=== PATIENT | male | born 1990 | race Caucasian/White ===

== ENCOUNTER 2019-04-03 10:53 | Inpatient (IN) | payer MEDICAID ==
--- NOTE | 2019-04-03 10:56 | ERPHSYRPT ---
- History of Present Illness Time Seen by Provider: 04/03/19 10:55 Source: patient, family, EMS Exam Limitations: no limitations Physician History: Old male with a past medical history significant for chronic alcoholism in addition to alcohol withdrawal seizures presents with a chief complaint of a seizure. He reportedly was at his probation officers office this morning with his girlfriend and had 1 witnessed tonic-clonic seizure. The seizure reportedly lasted 5 minutes before it resolved on its own. The patient reportedly drinks on average 1/2 gallon of vodka a week and reportedly has been trying to "cut down". He reported his been feeling tremulous for the past 48 hours and his girlfriend noted that his tremors seem to be worse this morning prior to going to his chief program officer's appointment. Had prior hospitalizations for alcohol withdrawal seizures in the past and currently has not been diagnosed with generalized seizures such as epilepsy and does not take anything for AED therapy. Did report falling/tripping over his dog 2 days ago in which he impacted the left side of his face and periorbital region resulting and a bruise around the left eye. No loss of consciousness reported with the fall. The patient reportedly does not take anticoagulants or any antiplatelets. He currently is not suicidal nor is he homicidal or expressing suicidal ideations. He has had outpatient rehab in the past for alcohol abuse and currently is not involved with rehab at this time nor is he on any Antabuse or taking any benzodiazepines to prevent withdrawals. He was transported by EMS to the emergency department and in route he had an Accu-Chek of 143. Associated Symptoms: malaise, seizure, No nausea, No vomiting, No loss of appetite Allergies/Adverse Reactions: No Known Drug Allergies Allergy (Verified 04/03/19 10:55) Home Medications: No Home Meds [No Home Meds] 0 09/07/12 [History] Hx Influenza Vaccination/Date Given: No Hx Pneumococcal Vaccination/Date Given: No - Review of Systems Constitutional: No Fever, No Chills Eyes: No Symptoms Ears, Nose, & Throat: No Symptoms Respiratory: Cough Cardiac: No Chest Pain, No Edema, No Orthopnea Abdominal/Gastrointestinal: No Abdominal Pain, No Nausea, No Vomiting Genitourinary Symptoms: No Symptoms Musculoskeletal: No Symptoms Skin: Other (Left periorbital ecchymosis) Neurological: Seizure, Tremors, No Headache Psychological: Alcohol Abuse, Anxiety, Depression, No Drug Abuse, No Suicidal Ideations, No Homicidal Ideations, No Hallucinations Endocrine: No Symptoms All Other Systems: Reviewed and Negative - Past Medical History Pertinent Past Medical History: No Psycho-Social History: Anxiety, Depression Other Medical History: Left shoulder tendon tear without surgery - Past Surgical History Past Surgical History: No - Social History Smoking Status: Current every day smoker How long have you smoked: 8 years Exposure to second hand smoke: Yes Alcohol Use: Chronic (since age 14l none for 3 days) Drug Use: none Patient Lives Alone: No Significant Family History: no pertinent family hx - Nursing Vital Signs Nursing Vital Signs: Initial Vital Signs Pulse Rate 104 H 04/03/19 10:57 Respiratory Rate 18 04/03/19 10:57 Blood Pressure 120/85 04/03/19 10:57 O2 Sat by Pulse Oximetry 95 04/03/19 10:57 Pain Scale Pain Intensity 0 - Physical Exam General Appearance: alert Eye Exam: PERRL/EOMI, other (Left subconjunctival hematoma), No scleral icterus Ears, Nose, Throat Exam: pharynx normal, dry mucous membranes, other (No evidence of tongue or obvious oral trauma), No TM abnormal (L), No pharyngeal erythema, No tonsillar exudate Neck Exam: non-tender, supple, No JVD Respiratory Exam: normal breath sounds, chest tenderness, lungs clear, airway intact, diminished breath sounds, accessory muscle use, No respiratory distress , No crackles/rales, No rhonchi, No wheezing, No pleural rub Cardiovascular Exam: tachycardia, capillary refill <2 sec, No edema, No pulse deficit Gastrointestinal/Abdomen Exam: soft, normal bowel sounds, No tenderness, No distention, No mass Male Genitalia Exam: normal genitalia Rectal Exam: deferred Back Exam: normal inspection Extremity Exam: normal inspection Neurologic Exam: alert, oriented x 3, cooperative Skin Exam: warm, dry, abrasion, other (Abrasion and ecchymosis noted to the left anterior forearm. Ecchymosis noted to the left periorbital region. ), No rash, No petechiae, No jaundice, No cyanosis - Course Nursing assessment & vital signs reviewed: Yes EKG Interpreted by Me: RATE, Sinus Rhythm, Left [place] Deviation, NORMAL INTERVALS , NORMAL QRS, Other (Vent rate of 85 bpm, no evidence of acute myocardial ischemia or injury) - CT Exams Head CT Interpretation: Negative Maxillofacial Bones CT Interpretation: Negative Cervical Spine CT Interpretation: Negative Ordered Tests: Active Orders 24 hr Category Date Time Status Up With Assistance ROUTINE Activity 04/03/19 13:57 Active Accucheck STAT Care 04/03/19 10:57 Completed Admit as Inpatient ROUTINE Care 04/03/19 13:30 Completed Babysitter STAT Care 04/03/19 10:58 Completed Code Status Order ROUTINE Care 04/03/19 13:57 Active EKG-ER Only STAT Care 04/03/19 10:57 Completed IV Care Q6H Care 04/03/19 13:57 Active IV Insertion STAT Care 04/03/19 10:57 Completed Pulse Oximetry (ED) STAT Care 04/03/19 10:57 Completed Seizure Precautions -SCCHED STAT Care 04/03/19 10:57 Completed Eric Hose, Apply ROUTINE Care 04/03/19 13:57 Active Telemetry q6h Care 04/03/19 13:57 Active Vital Signs Q2H Care 04/03/19 13:57 Active Weight,Daily 0600 Care 04/03/19 13:57 Active Manager Of Operations/Discharge Plan ROUTINE Cons 04/03/19 13:57 Active Regular Diet Diet 04/03/19 Dinner Active CERVICAL SPINE WO CONTRAST [CT] Stat Exams 04/03/19 11:48 Completed CHEST 2 VIEWS (PA AND LAT) Stat Exams 04/03/19 10:59 Completed FACIAL BONES WO CONTRAST [CT] Stat Exams 04/03/19 11:15 Completed HEAD WITHOUT CONTRAST [CT] Stat Exams 04/03/19 10:59 Completed BMP Stat Lab 04/03/19 11:05 Completed CBC W DIFF AM.LAB Lab 04/04/19 04:00 Ordered CBC W DIFF Stat Lab 04/03/19 11:05 Completed CMP AM.LAB Lab 04/04/19 04:00 Ordered CULTURE,URINE Stat Lab 04/03/19 Received ETHYL ALCOHOL Stat Lab 04/03/19 11:05 Completed Hepatic Function Panel Stat Lab 04/03/19 11:05 Completed Lactic Acid AM.LAB Lab 04/04/19 04:00 Ordered Lactic Acid Stat Lab 04/03/19 11:18 Completed Lactic Acid Stat Lab 04/03/19 13:25 Completed MAGNESIUM Stat Lab 04/03/19 11:05 Completed PHOSPHOROUS Stat Lab 04/03/19 11:05 Completed PROTIME WITH INR Stat Lab 04/03/19 11:05 Completed UA W/RFX UR CULTURE Stat Lab 04/03/19 Completed Pulse Oximetry CONTINUOUS RT 04/03/19 13:57 Completed Transfer Order Routine Transfer 04/03/19 Completed Medication Summary Generic Name Dose Route Start Last Admin Trade Name Collin PRN Reason Stop Dose Admin Sodium Chloride 1,000 mls @ 100 mls/hr 04/03/19 13:57 04/03/19 15:02 Sodium Chloride 0.9% 1000 Ml IV 05/03/19 13:56 100 mls/hr .Q10H LESLY Administration Ketorolac Tromethamine 30 mg 04/03/19 14:16 04/03/19 14:31 Toradol 30 Mg Injection IV 04/08/19 14:15 30 mg Q6H PRN PRN Administration PAIN Lorazepam 1 mg 04/03/19 14:15 04/03/19 14:30 Ativan 2 Mg/1 Ml Vial IV 05/03/19 14:14 1 mg PRN PRN Administration CIWA SCORE Multivitamins Therapeutic 1 tab 04/04/19 10:00 Theragran Multivitamin PO 05/04/19 09:59 QAM LESLY Ondansetron HCl 4 mg 04/03/19 13:57 Zofran 4 Mg/2 Ml Vial IV 05/03/19 13:56 Q6H PRN PRN NAUSEA/VOMITING Phenobarbital 130 mg 04/03/19 13:57 Phenobarbital 65 Mg/Ml Inj. IV 05/03/19 13:56 PRN PRN CIWA SCORE Discontinued Medications Generic Name Dose Route Start Last Admin Trade Name Collin PRN Reason Stop Dose Admin Folic Acid 1 mg 04/03/19 11:19 04/03/19 11:49 Folate 1 Mg PO 04/03/19 11:20 1 mg STAT ONE Administration Phenobarbital 780 mg/ Sodium 112 mls @ 224 mls/hr 04/03/19 11:45 04/03/19 12: 09 Chloride IV 04/03/19 12:14 224 mls/hr NOW ONE Administration Sodium Chloride 1,000 mls @ 999 mls/hr 04/03/19 12:03 04/03/19 13:18 Sodium Chloride 0.9% 1000 Ml IV 04/03/19 13:03 Infused .Q1H1M STA Infusion Sodium Chloride Confirm 04/03/19 12:11 Sodium Chloride 0.9% 1000 Ml Administered 04/03/19 12:12 Dose 1,000 mls @ ud .ROUTE .[facility] Magnesium Sulfate/Dextrose 100 mls @ 100 mls/hr 04/03/19 15:00 04/03/19 17:22 Magnesium 1 Gm / 100 Ml D5w IV 04/03/19 16:59 100 mls/hr Q1H LESLY Administration Phenobarbital 320 mg 04/03/19 11:24 04/03/19 12:08 Phenobarbital 65 Mg/Ml Inj. IV 04/03/19 11:25 320 mg STAT ONE Administration Thiamine HCl 100 mg 04/03/19 11:18 04/03/19 11:49 Thiamine 200 Mg/2 Ml IV 04/03/19 11:19 100 mg STAT ONE Administration Thiamine HCl Confirm 04/03/19 11:28 Thiamine 200 Mg/2 Ml Administered 04/03/19 11:29 Dose 200 mg .ROUTE .[facility] Lab/Rad Data: Laboratory Result Diagrams 04/03/19 11:05 04/03/19 11:05 Laboratory Results 04/03/19 04/03/19 04/03/19 Range/Units 13:25 11:18 11:05 WBC (4.0-10.5) K/mm3 RBC (4.1-5.6) M/mm3 Hgb (12.5-18.0) gm/dl Hct (42-50) % MCV (78-100) fl MCH (26-32) pg MCHC (32-36) g/dl RDW (11.5-14.0) % Plt Count (150-450) K/mm3 MPV (7.5-11.0) fl Gran % (36.0-66.0) % Eos # (Auto) (0-0.5) Absolute Lymphs (auto) (1.0-4.6) Absolute Monos (auto) (0.0-1.3) Lymphocytes % (24.0-44.0) % Monocytes % (0.0-12.0) % Eosinophils % (0.00-5.0) % Basophils % (0.0-0.4) % Absolute Granulocytes (1.4-6.9) Basophils # (0-0.4) PT (8.83-12.87) SECONDS INR (0.8-3.0) Sodium (137-145) mmol/L Potassium (3.5-5.1) mmol/L Chloride (98-107) mmol/L Carbon Dioxide (22-30) mmol/L Anion Gap (5-15) MEQ/L BUN (9-20) mg/dL Creatinine (0.66-1.25) mg/dL Estimated GFR ML/MIN Glucose (74-106) mg/dL Lactic Acid 1.1 7.1 H (0.4-2.0) Calcium (8.4-10.2) mg/dL Phosphorus (2.5-4.5) mg/dL Magnesium (1.6-2.3) mg/dL Total Bilirubin (0.2-1.3) mg/dL Direct Bilirubin (0.0-0.4) mg/dL AST (17-59) U/L ALT (0-50) U/L Alkaline Phosphatase (38-126) U/L Serum Total Protein (6.3-8.2) g/dL Albumin (3.5-5.0) g/dL Ethyl Alcohol < 10 (0-10) mg/dL Slides for Path Review 04/03/19 04/03/19 04/03/19 Range/Units 11:05 11:05 11:05 WBC (4.0-10.5) K/mm3 RBC (4.1-5.6) M/mm3 Hgb (12.5-18.0) gm/dl Hct (42-50) % MCV (78-100) fl MCH (26-32) pg MCHC (32-36) g/dl RDW (11.5-14.0) % Plt Count (150-450) K/mm3 MPV (7.5-11.0) fl Gran % (36.0-66.0) % Eos # (Auto) (0-0.5) Absolute Lymphs (auto) (1.0-4.6) Absolute Monos (auto) (0.0-1.3) Lymphocytes % (24.0-44.0) % Monocytes % (0.0-12.0) % Eosinophils % (0.00-5.0) % Basophils % (0.0-0.4) % Absolute Granulocytes (1.4-6.9) Basophils # (0-0.4) PT 11.5 (8.83-12.87) SECONDS INR 1.02 (0.8-3.0) Sodium 135 L (137-145) mmol/L Potassium 3.6 (3.5-5.1) mmol/L Chloride 96 L (98-107) mmol/L Carbon Dioxide 17 L (22-30) mmol/L Anion Gap 25.9 H (5-15) MEQ/L BUN 9 (9-20) mg/dL Creatinine 0.79 (0.66-1.25) mg/dL Estimated GFR > 60.0 ML/MIN Glucose 172 H (74-106) mg/dL Lactic Acid (0.4-2.0) Calcium 9.7 (8.4-10.2) mg/dL Phosphorus 3.2 (2.5-4.5) mg/dL Magnesium 1.5 L (1.6-2.3) mg/dL Total Bilirubin 1.00 (0.2-1.3) mg/dL Direct Bilirubin 0.4 (0.0-0.4) mg/dL AST 126 H (17-59) U/L ALT 77 H (0-50) U/L Alkaline Phosphatase 52 (38-126) U/L Serum Total Protein 8.2 (6.3-8.2) g/dL Albumin 5.1 H (3.5-5.0) g/dL Ethyl Alcohol (0-10) mg/dL Slides for Path Review 04/03/19 Range/Units 11:05 WBC 6.9 (4.0-10.5) K/mm3 RBC 4.58 (4.1-5.6) M/mm3 Hgb 15.5 (12.5-18.0) gm/dl Hct 45.5 (42-50) % MCV 99.3 (78-100) fl MCH 33.8 H (26-32) pg MCHC 34.1 (32-36) g/dl RDW 14.3 H (11.5-14.0) % Plt Count 47 L (150-450) K/mm3 MPV 10.1 (7.5-11.0) fl Gran % 84.2 H (36.0-66.0) % Eos # (Auto) 0.05 (0-0.5) Absolute Lymphs (auto) 0.46 L (1.0-4.6) Absolute Monos (auto) 0.57 (0.0-1.3) Lymphocytes % 6.6 L (24.0-44.0) % Monocytes % 8.2 (0.0-12.0) % Eosinophils % 0.7 (0.00-5.0) % Basophils % 0.3 (0.0-0.4) % Absolute Granulocytes 5.82 (1.4-6.9) Basophils # 0.02 (0-0.4) PT (8.83-12.87) SECONDS INR (0.8-3.0) Sodium (137-145) mmol/L Potassium (3.5-5.1) mmol/L Chloride (98-107) mmol/L Carbon Dioxide (22-30) mmol/L Anion Gap (5-15) MEQ/L BUN (9-20) mg/dL Creatinine (0.66-1.25) mg/dL Estimated GFR ML/MIN Glucose (74-106) mg/dL Lactic Acid (0.4-2.0) Calcium (8.4-10.2) mg/dL Phosphorus (2.5-4.5) mg/dL Magnesium (1.6-2.3) mg/dL Total Bilirubin (0.2-1.3) mg/dL Direct Bilirubin (0.0-0.4) mg/dL AST (17-59) U/L ALT (0-50) U/L Alkaline Phosphatase (38-126) U/L Serum Total Protein (6.3-8.2) g/dL Albumin (3.5-5.0) g/dL Ethyl Alcohol (0-10) mg/dL Slides for Path Review YES - Progress Progress: improved Progress Note: 04/03/19 21:24 The patient appears to be suffering from alcohol withdrawal at this time. His seizure was likely secondary to alcohol withdrawal as well. Labs were reviewed and consistent with and have other lactic acid in addition to anion gap metabolic acidosis likely secondary to this. This is likely result of his recent seizure and I do not feel the patient has an infectious source at this time to explain the elevated lactate. CTs and x-ray are reviewed and relatively benign. He did have some mild hyponatremia which I believe is secondary to his chronic alcohol use and likely not the cause of his seizure at this time. His thrombocytopenia in addition to mildly elevated transaminases AST being greater than his ALT is likely reflective of his chronic alcoholism/ use. Ultimately, the patient's tremors and withdrawal symptoms seem to be controlled with IV phenobarbital emergency department and he will be admitted to the ICU to undergo further evaluation and management for alcohol withdrawal and alcohol withdrawal seizures. Patient was agreeable to being admitted. The nursing staff on the ICU stated that they could order and follow the CIWA protocol and the charge nurse called and inquired about this given I was unable to order this or find that order for his admission orders. Discussed with DrRuth: Maribell Will see patient in: hospital (full admit) Counseled pt/family regarding: drug and/or alcohol abuse, lab results, diagnosis , rad results - Departure Departure Disposition: Home, In-patient Admission Clinical Impression: Alcohol withdrawal seizure, Hyponatremia, Hypochloremia, Transaminitis, High anion gap metabolic acidosis, Lactic acid acidosis, Thrombocytopenia, Hypomagnesemia, Subconjunctival hemorrhage, Contusion of face Condition: Stable Critical Care Time: No
[2019-04-03] MEDS ORDERED: THIAMINE 200 MG/2 ML IV ONE (11:18)
[2019-04-03 11:19] LABS: Absolute Neutrophil Ct (ANC) 5.82 (1.4-6.9); BASOPHIL % 0.3 % (0.0-0.4); Basophil (Absolute #) 0.02 (0-0.4); Eosinophil % 0.7 % (0.00-5.0); Eosinophil (Absolute #) 0.05 (0-0.5); Hematocrit 45.5 % (42-50); Hemoglobin 15.5 gm/dl (12.5-18.0); Lymphocyte (Absolute #) 0.46 (1.0-4.6); Lymphocytes % 6.6 % (24.0-44.0); Mean Cell Volume 99.3 fl (78-100); Mean Corpuscular Hemoglobin 33.8 pg (26-32); Mean Corpuscular Hgb Concent. 34.1 g/dl (32-36); Mean Platelet Volume 10.1 fl (7.5-11.0); Monocyte (Absolute #) 0.57 (0.0-1.3); Monocytes % 8.2 % (0.0-12.0); Neutrophil % 84.2 % (36.0-66.0); Platelet Count 47 K/mm3 (150-450); Red Blood Count 4.58 M/mm3 (4.1-5.6); Red Cell Distribution Width 14.3 % (11.5-14.0); White Blood Count 6.9 K/mm3 (4.0-10.5)
[2019-04-03] MEDS ORDERED: FOLATE 1 MG PO ONE (11:19)
[2019-04-03] MEDS ORDERED: Phenobarbital 65 MG/ML INJ. IV ONE ×2 (11:20→11:24)
[2019-04-03 11:25] LABS: INR 1.02 (0.8-3.0); PROTIME 11.5 SECONDS (8.83-12.87)
[2019-04-03] MEDS ORDERED: THIAMINE 200 MG/2 ML ONE (11:28)
[2019-04-03 11:31] LABS: MAGNESIUM 1.5 mg/dL (1.6-2.3); PHOSPHOROUS 3.2 mg/dL (2.5-4.5)
[2019-04-03 11:32] LABS: ALBUMIN 5.1 g/dL (3.5-5.0); ALKALINE PHOSPHATASE 52 U/L (38-126); ANION GAP 25.9 MEQ/L (5-15); BLOOD UREA NITROGEN 9 mg/dL (9-20); CHLORIDE 96 mmol/L (98-107); Calcium 9.7 mg/dL (8.4-10.2); Carbon Dioxide 17 mmol/L (22-30); Creatinine 1 0.79 mg/dL (0.66-1.25); Direct Bilirubin 0.4 mg/dL (0.0-0.4); Glucose 172 mg/dL (74-106); Potassium 3.6 mmol/L (3.5-5.1); SGOT/AST 126 U/L (17-59); SODIUM 135 mmol/L (137-145); Total Protein 8.2 g/dL (6.3-8.2)
[2019-04-03 11:39] LABS: SGPT/ALT 77 U/L (0-50)
[2019-04-03 11:40] LABS: Slide Review 1 YES
[2019-04-03] MEDS ORDERED: SODIUM CHLORIDE 0.9% IV ONE (11:45)
[2019-04-03] MEDS ORDERED: PHENOBARBITAL IV ONE (11:45)
[2019-04-03] MEDS ORDERED: Sodium Chloride 0.9% 1000 ML 1,000 ML IV STA (12:03)
[2019-04-03] MEDS ORDERED: Sodium Chloride 0.9% 1000 ML 1,000 ML ONE (12:11)
--- NOTE | 2019-04-03 12:38 | XRAY ---
Indication: Possible aspiration. Seizure. Comparison: September 07, 2012. PA/lateral chest again demonstrates normal heart and lungs. Bony thorax intact with minimal dextroscoliosis. No new/acute findings.
--- NOTE | 2019-04-03 12:44 | XRAY ---
Indication: Head injury. Status post seizure. Multiple contiguous axial images obtained through the head without contrast. Comparison: None Normal appearing brain parenchyma, ventricles, and bony calvarium. Impression: Normal CT head without contrast exam.
--- NOTE | 2019-04-03 12:46 | XRAY ---
Indication: Neck pain. Status post seizure. Multiple contiguous axial images obtained through the cervical spine. Sagittal and coronal reformatted images obtained. Comparison: None Axial images negative for acute fracture, suspicious bony lesions, or spinal canal stenosis. Sagittal and coronal reformatted images demonstrates normal cervical alignment. Vertebral body heights/disc spaces maintained. No acute compression fracture, subluxation, or jumped facet. Normal appearing craniocervical junction. Visualized noncontrasted soft tissues unremarkable. Impression: Normal CT cervical spine.
--- NOTE | 2019-04-03 12:48 | XRAY ---
Indication: Left infraorbital bruising. Status post seizure. Multiple contiguous axial images obtained through the facial bones. Sagittal and coronal reformatted images obtained. Comparison: None A few bilateral dental amalgams produces beam artifact. No acute fracture, suspicious bony lesions, or radiopaque foreign body. Orbits including roof, banks, and floors intact. Floor of the maxillary sinus and right sphenoid sinus demonstrates minimal mucosal thickening bilaterally. Remaining paranasal sinuses and nasal passages are clear. Mild nasoseptal deviation to the left. Visualized noncontrasted soft tissues unremarkable. Impression: Minimal paranasal sinus disease. Remaining CT facial bones is negative.
[2019-04-03] MEDS ORDERED: Phenobarbital 65 MG/ML INJ. IV PRN (13:57)
[2019-04-03] MEDS ORDERED: Zofran 4 MG/2 ML VIAL IV PRN (13:57)
[2019-04-03] MEDS: Ativan 2 MG/1 ML VIAL IV PRN ×2 (14:30→21:54)
[2019-04-03] MEDS: TORAdol 30 mg Injection IV PRN ×2 (14:31→21:54)
[2019-04-03 14:37] LABS: Appearance SLIGHTLY CLOUDY (CLEAR); Bacteria RARE /HPF (NEGATIVE); Bilirubin SMALL (NEGATIVE); Blood MODERATE Ery/ul (0-5); Glucose 50 mg/dL (NEGATIVE); Ketones MODERATE (NEGATIVE); Leukocyte Esterase NEGATIVE (NEGATIVE); Mucus SLIGHT /HPF (NEGATIVE); Nitrite NEGATIVE (NEGATIVE); Protein,Urine Dip >=500 (Negative); RBC 26-50 /HPF (0-2); Specific Gravity 1.026 (1.005-1.025); Urobilinogen 4 mg/dL (0-1); WBC 0-2 /HPF (0-5)
[2019-04-03] MEDS ORDERED: Magnesium Sulfate 1 GM/2 ML VIAL IV ONE (15:00)
[2019-04-03] MEDS: Sodium Chloride 0.9% 1000 ML 1,000 ML IV SCH (15:02)
[2019-04-03] MEDS: Magnesium 1 Gm / 100 Ml D5W*** 100 ML IV SCH ×2 (16:49→17:22)
[2019-04-04] MEDS: Ativan 2 MG/1 ML VIAL IV PRN ×4 (01:15→16:14)
[2019-04-04] MEDS: Sodium Chloride 0.9% 1000 ML 1,000 ML IV SCH ×2 (01:52→14:14)
[2019-04-04] MEDS ORDERED: IMODIUM 2 MG PO PRN ×2 (04:02→06:42)
[2019-04-04 05:15] LABS: Absolute Neutrophil Ct (ANC) 2.88 (1.4-6.9); BASOPHIL % 0.3 % (0.0-0.4); Basophil (Absolute #) 0.01 (0-0.4); Eosinophil (Absolute #) 0.08 (0-0.5); Hematocrit 42.1 % (42-50); Hemoglobin 14.1 gm/dl (12.5-18.0); Lymphocyte (Absolute #) 0.64 (1.0-4.6); Mean Cell Volume 99.3 fl (78-100); Mean Corpuscular Hemoglobin 33.3 pg (26-32); Mean Corpuscular Hgb Concent. 33.5 g/dl (32-36); Mean Platelet Volume 10.6 fl (7.5-11.0); Monocyte (Absolute #) 0.39 (0.0-1.3); Monocytes % 9.8 % (0.0-12.0); Neutrophil % 71.9 % (36.0-66.0); Platelet Count 41 K/mm3 (150-450); Red Blood Count 4.24 M/mm3 (4.1-5.6); Red Cell Distribution Width 14.2 % (11.5-14.0)
[2019-04-04 05:23] LABS: ALBUMIN 4.3 g/dL (3.5-5.0); ALKALINE PHOSPHATASE 52 U/L (38-126); ANION GAP 11.3 MEQ/L (5-15); BLOOD UREA NITROGEN 5 mg/dL (9-20); CHLORIDE 100 mmol/L (98-107); Calcium 8.8 mg/dL (8.4-10.2); Carbon Dioxide 26 mmol/L (22-30); Glucose 115 mg/dL (74-106); Potassium 3.2 mmol/L (3.5-5.1); SGOT/AST 101 U/L (17-59); SGPT/ALT 73 U/L (0-50); SODIUM 135 mmol/L (137-145); Total Protein 7.1 g/dL (6.3-8.2)
[2019-04-04] MEDS: TORAdol 30 mg Injection IV PRN (09:37)
[2019-04-04] MEDS: THERAGRAN MULTIVITAMIN PO SCH (09:39)
--- NOTE | 2019-04-04 12:34 | PCM.HP ---
History of Present Illness - Chief Complaint Chief Complaint: seizure and alcohol withdrawl History of Present Illness: is a 28 year old male with a past medical history significant for chronic alcoholism in addition to alcohol withdrawal seizures presents with a chief complaint of a seizure. He reportedly was at his probation officers office this morning with his girlfriend and had 1 witnessed tonic-clonic seizure. The seizure reportedly lasted 5 minutes before it resolved on its own. The patient reportedly drinks on average 1/2 gallon of vodka a week and reportedly has been trying to "cut down". He reported his been feeling tremulous for the past 48 hours and his girlfriend noted that his tremors seem to be worse this morning prior to going to his safety security officer's appointment. Had prior hospitalizations for alcohol withdrawal seizures in the past and currently has not been diagnosed with generalized seizures such as epilepsy and does not take anything for AED therapy. Did report falling/tripping over his dog 2 days ago in which he impacted the left side of his face and periorbital region resulting and a bruise around the left eye. No loss of consciousness reported with the fall. The patient reportedly does not take anticoagulants or any antiplatelets. He currently is not suicidal nor is he homicidal or expressing suicidal ideations. He has had outpatient rehab in the past for alcohol abuse and currently is not involved with rehab at this time nor is he on any Antabuse or taking any benzodiazepines to prevent withdrawals. He was transported by EMS to the emergency department and in route he had an Accu-Chek of 143. - Review of Systems Constitutional: No Fever, No Chills Eyes: No Symptoms Ears, Nose, & Throat: No Symptoms Respiratory: No Cough, No Short Of Breath Cardiac: No Chest Pain, No Edema, No Syncope Abdominal/Gastrointestinal: No Abdominal Pain, No Nausea, No Vomiting, No Diarrhea Genitourinary Symptoms: No Dysuria Musculoskeletal: No Back Pain, No Neck Pain Skin: No Rash Neurological: No Dizziness, No Focal Weakness, No Sensory Changes Psychological: No Symptoms Endocrine: No Symptoms Hematologic/Lymphatic: No Symptoms Immunological/Allergic: No Symptoms Medications & Allergies Home Medications: Home Medication List No Reportable Medications [No Reported Medications] 04/03/19 [History Confirmed 04/03/19] Allergies/Adverse Reactions: Allergies Allergy/AdvReac Type Severity Reaction Status Date / Time No Known Drug Allergies Allergy Verified 04/03/19 10:55 - Past Medical History Past Medical History: No Neurological History: Seizures ENT History: No Pertinent History Cardiac History: No Pertinent History Respiratory History: No Pertinent History Endocrine Medical History: No Pertinent History Musculoskelatal History: No Pertinent History GI Medical History: No Pertinent History History: No Pertinent History Pyscho-Social History: Anxiety, Depression Male Reproductive Disorders: No Pertinent History Comment: Left shoulder tendon tear without surgery - Past Surgical History Past Surgical History: No Neuro Surgical History: No Pertinent History Cardiac History: No Pertinent History Respiratory Surgery: No Pertinent History GI Surgical History: No Pertinent History Genitourinary Surgical Hx: No Pertinent History Musculskeletal Surgical Hx: No Pertinent History Male Surgical History: No Pertinent History - Social History Smoking Status: Current every day smoker How long have you smoked: 8 years Exposure to second hand smoke: Yes Alcohol: Heavy Drug Use: none Significant Family History: no pertinent family hx - Physical Exam Vital Signs: Vital Signs - 24 hr Temp Pulse Resp BP Pulse Ox 04/04/19 08:00 98.1 F 81 20 119/104 96 04/04/19 04:00 97.8 F 79 13 126/101 96 04/03/19 23:57 66 04/03/19 23:49 98.0 F 68 12 111/84 98 04/03/19 22:00 98.5 F 75 17 137/85 96 04/03/19 20:00 98.2 F 70 15 111/69 98 04/03/19 17:23 97.9 F 68 18 108/80 97 04/03/19 15:54 97.6 F 80 20 121/82 96 04/03/19 14:36 98.4 F 82 22 129/87 97 04/03/19 14:05 98.4 F 82 22 129/87 97 04/03/19 13:57 97 04/03/19 13:19 78 18 118/92 96 04/03/19 12:39 88 18 124/83 95 General Appearance: no apparent distress, alert Neurologic Exam: alert, oriented x 3, cooperative, normal mood/affect, nml cerebellar function, nml station & gait, sensation nml, No motor deficits Eye Exam: PERRL/EOMI, eyes nml inspection Ears, Nose, Throat Exam: normal ENT inspection, TMs normal, pharynx normal, moist mucous membranes Neck Exam: normal inspection, non-tender, supple, full range of motion Respiratory Exam: normal breath sounds, lungs clear, No respiratory distress Cardiovascular Exam: regular rate/rhythm, normal heart sounds, normal peripheral pulses Gastrointestinal/Abdomen Exam: soft, normal bowel sounds, No tenderness, No mass Back Exam: normal inspection, normal range of motion, No CVA tenderness, No vertebral tenderness Extremity Exam: normal inspection, normal range of motion, pelvis stable Skin Exam: normal color, warm, dry, No rash Lymphatic Exam: No adenopathy Results - Labs Lab/Micro Results: Lab Results-Last 24 Hours 04/03/19 04/03/19 04/04/19 Range/Units 13:25 Unknown 04:00 WBC (4.0-10.5) K/mm3 RBC (4.1-5.6) M/mm3 Hgb (12.5-18.0) gm/dl Hct (42-50) % MCV (78-100) fl MCH (26-32) pg MCHC (32-36) g/dl RDW (11.5-14.0) % Plt Count (150-450) K/mm3 MPV (7.5-11.0) fl Gran % (36.0-66.0) % Eos # (Auto) (0-0.5) Absolute Lymphs (auto) (1.0-4.6) Absolute Monos (auto) (0.0-1.3) Lymphocytes % (24.0-44.0) % Monocytes % (0.0-12.0) % Eosinophils % (0.00-5.0) % Basophils % (0.0-0.4) % Absolute Granulocytes (1.4-6.9) Basophils # (0-0.4) Sodium (137-145) mmol/L Potassium (3.5-5.1) mmol/L Chloride (98-107) mmol/L Carbon Dioxide (22-30) mmol/L Anion Gap (5-15) MEQ/L BUN (9-20) mg/dL Creatinine (0.66-1.25) mg/dL Estimated GFR ML/MIN Glucose (74-106) mg/dL Lactic Acid 1.1 1.3 (0.4-2.0) Calcium (8.4-10.2) mg/dL Total Bilirubin (0.2-1.3) mg/dL AST (17-59) U/L ALT (0-50) U/L Alkaline Phosphatase (38-126) U/L Serum Total Protein (6.3-8.2) g/dL Albumin (3.5-5.0) g/dL Urine Color LUIS (YELLOW) Urine Appearance SLIGHTLY CLOUDY (CLEAR) Urine pH 6.0 (5-6) Ur Specific [place] 1.026 (1.005-1.025) Urine Protein >=500 (Negative) Urine Ketones MODERATE (NEGATIVE) Urine Blood MODERATE (0-5) Henry/ul Urine Nitrite NEGATIVE (NEGATIVE) Urine Bilirubin SMALL (NEGATIVE) Urine Urobilinogen 4 (0-1) mg/dL Ur Leukocyte Esterase NEGATIVE (NEGATIVE) Urine WBC (Auto) 0-2 (0-5) /HPF Urine RBC (Auto) 26-50 (0-2) /HPF U Hyaline Cast (Auto) 3-5 (0-2) /LPF U Epithel Cells (Auto) NONE (FEW) /HPF Urine Bacteria (Auto) RARE (NEGATIVE) /HPF Urine Mucus (Auto) SLIGHT (NEGATIVE) /HPF Urine Culture Reflexed YES (NO) Urine Glucose 50 (NEGATIVE) mg/dL 04/04/19 04/04/19 Range/Units 04:31 04:31 WBC 4.0 (4.0-10.5) K/mm3 RBC 4.24 (4.1-5.6) M/mm3 Hgb 14.1 (12.5-18.0) gm/dl Hct 42.1 (42-50) % MCV 99.3 (78-100) fl MCH 33.3 H (26-32) pg MCHC 33.5 (32-36) g/dl RDW 14.2 H (11.5-14.0) % Plt Count 41 L (150-450) K/mm3 MPV 10.6 (7.5-11.0) fl Gran % 71.9 H (36.0-66.0) % Eos # (Auto) 0.08 (0-0.5) Absolute Lymphs (auto) 0.64 L (1.0-4.6) Absolute Monos (auto) 0.39 (0.0-1.3) Lymphocytes % 16.0 L (24.0-44.0) % Monocytes % 9.8 (0.0-12.0) % Eosinophils % 2.0 (0.00-5.0) % Basophils % 0.3 (0.0-0.4) % Absolute Granulocytes 2.88 (1.4-6.9) Basophils # 0.01 (0-0.4) Sodium 135 L (137-145) mmol/L Potassium 3.2 L (3.5-5.1) mmol/L Chloride 100 (98-107) mmol/L Carbon Dioxide 26 (22-30) mmol/L Anion Gap 11.3 (5-15) MEQ/L BUN 5 L (9-20) mg/dL Creatinine 0.60 L (0.66-1.25) mg/dL Estimated GFR > 60.0 ML/MIN Glucose 115 H (74-106) mg/dL Lactic Acid (0.4-2.0) Calcium 8.8 (8.4-10.2) mg/dL Total Bilirubin 1.00 (0.2-1.3) mg/dL AST 101 H (17-59) U/L ALT 73 H (0-50) U/L Alkaline Phosphatase 52 (38-126) U/L Serum Total Protein 7.1 (6.3-8.2) g/dL Albumin 4.3 (3.5-5.0) g/dL Urine Color (YELLOW) Urine Appearance (CLEAR) Urine pH (5-6) Ur Specific [place] (1.005-1.025) Urine Protein (Negative) Urine Ketones (NEGATIVE) Urine Blood (0-5) Henry/ul Urine Nitrite (NEGATIVE) Urine Bilirubin (NEGATIVE) Urine Urobilinogen (0-1) mg/dL Ur Leukocyte Esterase (NEGATIVE) Urine WBC (Auto) (0-5) /HPF Urine RBC (Auto) (0-2) /HPF U Hyaline Cast (Auto) (0-2) /LPF U Epithel Cells (Auto) (FEW) /HPF Urine Bacteria (Auto) (NEGATIVE) /HPF Urine Mucus (Auto) (NEGATIVE) /HPF Urine Culture Reflexed (NO) Urine Glucose (NEGATIVE) mg/dL Microbiology 04/03/19 Unknown Urine Culture - Preliminary Urine, Void NO GROWTH TO DATE - Radiology Impressions Radiology Exams & Impressions: Radiology Procedures Category Date Time Status CERVICAL SPINE WO CONTRAST [CT] Stat Exams 04/03/19 11:48 Completed CHEST 2 VIEWS (PA AND LAT) Stat Exams 04/03/19 10:59 Completed FACIAL BONES WO CONTRAST [CT] Stat Exams 04/03/19 11:15 Completed HEAD WITHOUT CONTRAST [CT] Stat Exams 04/03/19 10:59 Completed Assessment/Plan (1) Alcohol abuse Current Visit: Yes Status: Acute Code(s): F10.10 - ALCOHOL ABUSE, UNCOMPLICATED (2) Alcohol withdrawal seizure Current Visit: Yes Status: Acute Qualifiers: Complication of substance-induced condition: with perceptual disturbance Qualified Code(s): F10.232 - Alcohol dependence with withdrawal with perceptual disturbance Assessment & Plan: Last Vital Signs Temp 98.1 F 04/04/19 08:00 Pulse 81 04/04/19 08:00 Resp 20 04/04/19 08:00 BP 119/104 04/04/19 08:00 Pulse Ox 96 04/04/19 08:00 Allergies No Known Drug Allergies Allergy (Verified 04/03/19 10:55) Active Medications Sodium Chloride (Sodium Chloride 0.9% 1000 Ml) 1,000 mls @ 100 mls/hr IV .Q10H LESLY Stop: 05/03/19 13:56 Last Admin: 04/04/19 01:52 Dose: 100 mls/hr Ketorolac Tromethamine (Toradol 30 Mg Injection) 30 mg IV Q6H PRN PRN PRN Reason: PAIN Stop: 04/08/19 14:15 Last Admin: 04/04/19 09:37 Dose: 30 mg Loperamide HCl (Imodium 2 Mg) 2 mg PO Q4H PRN PRN PRN Reason: DIARRHEA Stop: 05/04/19 06:41 Lorazepam (Ativan 2 Mg/1 Ml Vial) 1 mg IV PRN PRN PRN Reason: CIWA SCORE Stop: 05/03/19 14:14 Last Admin: 04/04/19 09:38 Dose: 1 mg Multivitamins Therapeutic (Theragran Multivitamin) 1 tab PO QAM LESLY Stop: 05/04/19 09:59 Last Admin: 04/04/19 09:39 Dose: 1 tab Ondansetron HCl (Zofran 4 Mg/2 Ml Vial) 4 mg IV Q6H PRN PRN PRN Reason: NAUSEA/VOMITING Stop: 05/03/19 13:56 Last Admin: 04/04/19 01:22 Dose: 4 mg Phenobarbital (Phenobarbital 65 Mg/Ml Inj.) 130 mg IV PRN PRN PRN Reason: CIWA SCORE Stop: 05/03/19 13:56 Intake & Output 04/04/19 04/05/19 11:59 11:59 Intake Total 2525 Balance 2525 Weight 80.8 kg Orders 04/03/19 14:15 Lorazepam 2 mg/1 ml [Ativan 2 MG/1 ML VIAL] 1 mg IV PRN PRN 04/03/19 14:16 KETOROLAC trometh 30 mg Inj [TORAdol 30 mg Injection] 30 mg IV Q6H PRN PRN 04/04/19 06:42 Loperamide HCl 2 mg [Imodium 2 mg] 2 mg PO Q4H PRN PRN 04/04/19 09:22 Consult Tele-Health [Tele-Health Consult] ROUTINE Lab Tests 04/03/19 04/03/19 04/04/19 13:25 Unknown 04:00 WBC RBC Hgb Hct MCV MCH MCHC RDW Plt Count MPV Gran % Eos # (Auto) Absolute Lymphs (auto) Absolute Monos (auto) Lymphocytes % Monocytes % Eosinophils % Basophils % Absolute Granulocytes Basophils # Sodium Potassium Chloride Carbon Dioxide Anion Gap BUN Creatinine Estimated GFR Glucose Lactic Acid 1.1 1.3 Calcium Total Bilirubin AST ALT Alkaline Phosphatase Serum Total Protein Albumin Urine Color LUIS Urine Appearance SLIGHTLY CLOUDY Urine pH 6.0 Ur Specific [place] 1.026 Urine Protein >=500 Urine Ketones MODERATE Urine Blood MODERATE Urine Nitrite NEGATIVE Urine Bilirubin SMALL Urine Urobilinogen 4 Ur Leukocyte Esterase NEGATIVE Urine WBC (Auto) 0-2 Urine RBC (Auto) 26-50 U Hyaline Cast (Auto) 3-5 U Epithel Cells (Auto) NONE Urine Bacteria (Auto) RARE Urine Mucus (Auto) SLIGHT Urine Culture Reflexed YES Urine Glucose 50 04/04/19 04/04/19 04:31 04:31 WBC 4.0 RBC 4.24 Hgb 14.1 Hct 42.1 MCV 99.3 MCH 33.3 H MCHC 33.5 RDW 14.2 H Plt Count 41 L MPV 10.6 Gran % 71.9 H Eos # (Auto) 0.08 Absolute Lymphs (auto) 0.64 L Absolute Monos (auto) 0.39 Lymphocytes % 16.0 L Monocytes % 9.8 Eosinophils % 2.0 Basophils % 0.3 Absolute Granulocytes 2.88 Basophils # 0.01 Sodium 135 L Potassium 3.2 L Chloride 100 Carbon Dioxide 26 Anion Gap 11.3 BUN 5 L Creatinine 0.60 L Estimated GFR > 60.0 Glucose 115 H Lactic Acid Calcium 8.8 Total Bilirubin 1.00 AST 101 H ALT 73 H Alkaline Phosphatase 52 Serum Total Protein 7.1 Albumin 4.3 Urine Color Urine Appearance Urine pH Ur Specific [place] Urine Protein Urine Ketones Urine Blood Urine Nitrite Urine Bilirubin Urine Urobilinogen Ur Leukocyte Esterase Urine WBC (Auto) Urine RBC (Auto) U Hyaline Cast (Auto) U Epithel Cells (Auto) Urine Bacteria (Auto) Urine Mucus (Auto) Urine Culture Reflexed Urine Glucose Microbiology 04/03/19 Unknown Urine, Void Urine Culture - Preliminary NO GROWTH TO DATE Code(s): F10.239 - ALCOHOL DEPENDENCE WITH WITHDRAWAL, UNSPECIFIED; R56.9 - UNSPECIFIED CONVULSIONS
[2019-04-05] MEDS: Sodium Chloride 0.9% 1000 ML 1,000 ML IV SCH (07:23)
[2019-04-05 08:08] VITALS: BP 151/98; PULSE 84; O2SAT 95
[2019-04-05] MEDS: THERAGRAN MULTIVITAMIN PO SCH (08:40)
--- NOTE | 2019-04-05 12:03 | PCM.DS ---
Discharge Summary Date of Admission: 04/03/19 13:54 Admitting Physician: MAVERICK SPANN Primary Care Provider: NO FAMILY DOCTOR Allergies Allergies No Known Drug Allergies Allergy (Verified 04/03/19 10:55) Hospital Summary - Hospital Course Hospital Course: Chief Complaint Diagnosis seizure and alcohol withdrawl Allergies Allergy/AdvReac Type Severity Reaction Status Date / Time No Known Drug Allergies Allergy Verified 04/03/19 10:55 Vital Signs (Last 24 hours) Temp Pulse Resp BP Pulse Ox 04/05/19 11:54 84 04/05/19 08:00 98.3 F 84 20 151/98 95 04/05/19 07:30 87 04/05/19 04:00 98.7 F 78 19 146/103 98 04/05/19 00:01 64 04/05/19 00:00 64 16 133/95 96 04/04/19 20:00 98.1 F 63 16 135/96 99 04/04/19 16:00 98.4 F 71 16 146/106 97 04/04/19 12:00 98.2 F 73 18 138/94 96 Home Medications Medication Instructions Recorded Confirmed Last Taken Type No Reportable Medications [No 04/03/19 04/03/19 Unknown History Reported Medications] Current Medications Generic Name Dose Route Start Last Admin Trade Name Freq PRN Reason Stop Dose Admin Sodium Chloride 1,000 mls @ 100 mls/hr 04/03/19 13:57 04/05/19 07:23 Sodium Chloride 0.9% 1000 Ml IV 05/03/19 13:56 Not Given .Q10H LESLY Ketorolac Tromethamine 30 mg 04/03/19 14:16 04/04/19 09:37 Toradol 30 Mg Injection IV 04/08/19 14:15 30 mg Q6H PRN PRN Administration PAIN Loperamide HCl 2 mg 04/04/19 06:42 04/04/19 22:16 Imodium 2 Mg PO 05/04/19 06:41 2 mg Q4H PRN PRN Administration DIARRHEA Lorazepam 1 mg 04/03/19 14:15 04/04/19 16:14 Ativan 2 Mg/1 Ml Vial IV 05/03/19 14:14 1 mg PRN PRN Administration CIWA SCORE Multivitamins Therapeutic 1 tab 04/04/19 10:00 04/05/19 08:40 Theragran Multivitamin PO 05/04/19 09:59 1 tab QAM LESLY Administration Ondansetron HCl 4 mg 04/03/19 13:57 04/04/19 01:22 Zofran 4 Mg/2 Ml Vial IV 05/03/19 13:56 4 mg Q6H PRN PRN Administration NAUSEA/VOMITING Phenobarbital 130 mg 04/03/19 13:57 Phenobarbital 65 Mg/Ml Inj. IV 05/03/19 13:56 PRN PRN CIWA SCORE Discontinued Medications Generic Name Dose Route Start Last Admin Trade Name Freq PRN Reason Stop Dose Admin Folic Acid 1 mg 04/03/19 11:19 04/03/19 11:49 Folate 1 Mg PO 04/03/19 11:20 1 mg STAT ONE Administration Phenobarbital 780 mg/ Sodium 112 mls @ 224 mls/hr 04/03/19 11:45 04/03/19 12: 09 Chloride IV 04/03/19 12:14 224 mls/hr NOW ONE Administration Sodium Chloride 1,000 mls @ 999 mls/hr 04/03/19 12:03 04/03/19 13:18 Sodium Chloride 0.9% 1000 Ml IV 04/03/19 13:03 Infused .Q1H1M STA Infusion Sodium Chloride Confirm 04/03/19 12:11 Sodium Chloride 0.9% 1000 Ml Administered 04/03/19 12:12 Dose 1,000 mls @ ud .ROUTE .STK-MED ONE Magnesium Sulfate/Dextrose 100 mls @ 100 mls/hr 04/03/19 15:00 04/03/19 17:22 Magnesium 1 Gm / 100 Ml D5w IV 04/03/19 16:59 100 mls/hr Q1H LESLY Administration Loperamide HCl 2 mg 04/04/19 04:02 04/04/19 04:08 Imodium 2 Mg PO 05/04/19 04:01 2 mg Q4H PRN Administration DIARRHEA Phenobarbital 320 mg 04/03/19 11:24 04/03/19 12:08 Phenobarbital 65 Mg/Ml Inj. IV 04/03/19 11:25 320 mg STAT ONE Administration Thiamine HCl 100 mg 04/03/19 11:18 04/03/19 11:49 Thiamine 200 Mg/2 Ml IV 04/03/19 11:19 100 mg STAT ONE Administration Thiamine HCl Confirm 04/03/19 11:28 Thiamine 200 Mg/2 Ml Administered 04/03/19 11:29 Dose 200 mg .ROUTE .STK-MED ONE Intake & Output (Last 24 hours) 04/02/19 04/03/19 04/04/19 04/05/19 11:59 11:59 11:59 11:59 Intake Total 2525 1680 Balance 2525 1680 Weight 83.915 kg 80.8 kg 78.1 kg Microbiology Results (Last 24 hours) 04/03/19 Unknown Urine, Void Urine Culture - Final NO GROWTH Patient Care Notes (Last 24 hours) 04/05/19 10:07 Case Management Note by Tahmina Chatman S/W PATIENT AND FAMILY- THEY CONTINUE TO DENY ANY NEEDS REGARDING DC AT THIS TIME. PATIENT HAS AN APPOINTMENT WITH THE [facility] FOR OUTPT TREATMENT. THEY REPORT THEY WILL MAKE SURE PATIENT TAKES ANY MEDICATIONS PRESCRIBED AND WILL MAKE SURE HE MAKES HIS FOLLOW UP APPOINTMENTS Initialized on 04/05/19 10:07 - END OF NOTE 04/05/19 06:13 Nursing Note by Harriet Amaral Patient and girlfriend came out into hallway from room 128, patient was fully clothed with jacket and shoes on. Patient stated, "I'm just going to go for a walk and get some air." This nurse educated patient that he was still ICU and on seizure precautions. Patient's girlfriend became very confrontational stating , "He walked outside yesterday! He is just walking!" This nurse recommended patient at least stay on hospital unit, which he refused. electronics supervisor notified and recommended patient at least stay in the hospital at this time, to which patient and girlfriend took off walking down the hallway. Patient's belongings noted still in room at this time. Initialized on 04/05/19 06:13 - END OF NOTE 04/04/19 15:09 Nursing Note by Elen Maurice [facility] called after discussing case with . pt is free to discharge home when medically cleared Initialized on 04/04/19 15:09 - END OF NOTE 04/04/19 14:30 Nursing Note by Anais Bailey [facility] did a face to face with patient at 2:12-2:30 p.m. Initialized on 04/04/19 14:30 - END OF NOTE 04/04/19 14:14 Nursing Note by Elen Maurice [facility] staff in pt's room for face to face evaluation. Initialized on 04/04/19 14:14 - END OF NOTE 04/04/19 13:09 Nursing Note by Elen Maurice [facility] called and reported someone from the [facility] will come over later today to do a face to face evaluation. Initialized on 04/04/19 13:09 - END OF NOTE - Vitals & Intake/Output Vital Signs: Vital Signs Temperature 98.3 F 04/05/19 08:00 Pulse Rate 84 04/05/19 11:54 Respiratory Rate 20 04/05/19 08:00 Blood Pressure 151/98 04/05/19 08:00 O2 Sat by Pulse Oximetry 95 04/05/19 08:00 Intake & Output: Intake & Output 04/02/19 04/03/19 04/04/19 04/05/19 11:59 11:59 11:59 11:59 Intake Total 2525 1680 Balance 2525 1680 Weight 83.915 kg 80.8 kg 78.1 kg - Lab Result Diagrams: 04/04/19 04:31 04/04/19 04:31 Micro Results-Entire Visit: Microbiology 04/03/19 Unknown Urine Culture - Final Urine, Void NO GROWTH - Radiology Exams Ordered Rad Exams-Entire Visit: Radiology Procedures Category Date Time Status CERVICAL SPINE WO CONTRAST [CT] Stat Exams 04/03/19 11:48 Completed CHEST 2 VIEWS (PA AND LAT) Stat Exams 04/03/19 10:59 Completed FACIAL BONES WO CONTRAST [CT] Stat Exams 04/03/19 11:15 Completed HEAD WITHOUT CONTRAST [CT] Stat Exams 04/03/19 10:59 Completed Discharge Exam General Appearance: no apparent distress, alert Neurologic Exam: alert, oriented x 3, cooperative, normal mood/affect, nml cerebellar function, sensation nml, No motor deficits Eye Exam: PERRL, EOMI, eyes nml inspection Ears, Nose, Throat Exam: normal ENT inspection, pharynx normal, moist mucous membranes Neck Exam: normal inspection, non-tender, supple, full range of motion Respiratory Exam: normal breath sounds, lungs clear, No respiratory distress Cardiovascular Exam: regular rate/rhythm, normal heart sounds Gastrointestinal/Abdomen Exam: soft, No tenderness, No mass Male Genitalia Exam: deferred Rectal Exam: deferred Back Exam: normal inspection, normal range of motion, No CVA tenderness, No vertebral tenderness Extremity Exam: normal inspection, normal range of motion Skin Exam: normal color, warm, dry Final Diagnosis/Problem List - Final Discharge Diagnosis/Problem (1) Alcohol abuse Current Visit: Yes Status: Acute Assessment & Plan: will start naltrexone and antabuse Code(s): F10.10 - ALCOHOL ABUSE, UNCOMPLICATED (2) Alcohol withdrawal seizure Current Visit: Yes Status: Acute Assessment & Plan: start him on Keppra Code(s): F10.239 - ALCOHOL DEPENDENCE WITH WITHDRAWAL, UNSPECIFIED; R56.9 - UNSPECIFIED CONVULSIONS - Discharge Discharge Date: 04/05/19 Disposition: Home, Self-Care Condition: Stable Prescriptions: New Disulfiram [Antabuse] 250 mg PO BID #60 tablet Levetiracetam [Keppra 500 mg ] 500 mg PO BID #60 tablet Nystatin/TCN/Hc/Diphenhydram [Tsering's Magic Mouthwash] 10 ml PO QID #200 bottle Naltrexone HCl 50 mg PO BID #60 tablet Instructions: Alcohol Abuse and Alcoholism (DC) Additional Instructions: FOLLOW UP WITH [facility] AT [facility] FOR [facility]IENT [facility]ERAPY @ 10:00 A.M. Follow up with: MAVERICK SPANN MD [ACTIVE STAFF] - 04/10/19 10:45 am (at [facility] )
== END 2019-04-05 12:09 | disposition home or self-care (01) | DRG 897 ==
LOC: ED 10:53 → ICU 13:54
PROVIDERS: ADMIT General Practice; ATTEND General Practice
DX: F10.239 Alcohol dependence with withdrawal, unspecified (principal); F10.232 Alcohol dependence with withdrawal with perceptual disturbance; W01.0XXA Fall on same level from slipping, tripping and stumbling without subsequent striking against object, initial encounter; Y93.9 Activity, unspecified; Y92.9 Unspecified place or not applicable; S00.12XA Contusion of left eyelid and periocular area, initial encounter; F41.9 Anxiety disorder, unspecified; F32.9 Major depressive disorder, single episode, unspecified; R56.9 Unspecified convulsions
CPT/HCPCS: 36415; 70450; 70486; 71046; 72125; 80048; 80053; 80076; 80307; 81001; 82962; 83605; 83735; 84100; 85025; 85610; 87086; 90791; 93005; 93041; 94760; 96360; 96374; 96375; 99285; J1885; J2060; J2405; J2560; J3475; Q3014; A9270-GY; G0480

== ENCOUNTER 2020-06-11 15:55 | Inpatient (IN) | payer OTHER ==
[2020-06-11] MEDS ORDERED: PROTONIX 40 MG IV IV ONE ×2 (16:14→16:24)
[2020-06-11] MEDS ORDERED: Zofran 4 MG/2 ML VIAL IV ONE (16:14)
[2020-06-11] MEDS ORDERED: Ativan 2 MG/1 ML VIAL IV ONE ×2 (16:15→17:33)
[2020-06-11] MEDS ORDERED: Zofran 4 MG/2 ML VIAL ONE (16:24)
[2020-06-11] MEDS ORDERED: Ativan 2 MG/1 ML VIAL ONE ×2 (16:24→17:34)
[2020-06-11] MEDS ORDERED: Vitamins For Infusion 10 ML INJECTION*** 10 ML, THIAMINE 200 MG/2 ML*** 100 MG, FOLNATE... IV SCH ×4 (16:30)
[2020-06-11] MEDS ORDERED: Sodium Chloride 0.9% W/ 20 mEq KCl/LITER 1,000 ML IV SCH (16:30)
[2020-06-11 16:58] LABS: INR 1.15 (0.8-3.0)
--- NOTE | 2020-06-11 16:59 | XRAY ---
Indication: Abdomen pain. Vomiting blood. Alcohol withdrawal. Multiple contiguous axial images obtained through the abdomen and pelvis using 80 cc Isovue 370 contrast. Comparison: June 25, 2019. Lung bases are clear. Heart not enlarged. New small hiatal hernia. Noncontrasted stomach and bowel loops appear nonobstructed. Normal appendix. New prominent/edematous pancreatic head with diffuse peripancreatic stranding favoring acute pancreatitis. New small fluid along the left colic gutter and pelvis presumed reactive. No walled off fluid collection or free air. New diffuse fatty appearing liver. Remaining gallbladder, spleen, adrenal glands, kidneys, ureters, bladder, and aorta appear unremarkable. No pathologic retroperitoneal lymphadenopathy. Osseous structures intact. Impression: 1. New CT findings favoring acute pancreatitis with small free fluid. No phlegmon or free air. 2. New diffuse fatty liver and small hiatal hernia.
--- NOTE | 2020-06-11 16:59 | XRAY ---
Indication: Vomiting blood. Comparison: April 03, 2019. Portable apical lordotic chest again demonstrates normal heart, lungs, and bony thorax.
[2020-06-11 17:03] LABS: ALBUMIN 4.9 g/dL (3.5-5.0); ALKALINE PHOSPHATASE 66 U/L (38-126); AMYLASE 684 U/L (30-110); ANION GAP 28.5 MEQ/L (5-15); BLOOD UREA NITROGEN 13 mg/dL (9-20); CHLORIDE 86 mmol/L (98-107); Calcium 9.9 mg/dL (8.4-10.2); Carbon Dioxide 23 mmol/L (22-30); Creatinine 1 0.95 mg/dL (0.66-1.25); EST GLOMERULAR FILTRATION RATE > 60.0 ML/MIN; Glucose 103 mg/dL (74-106); SGOT/AST 141 U/L (17-59); SGPT/ALT 84 U/L (0-50); SODIUM 134 mmol/L (137-145); Total Protein 7.7 g/dL (6.3-8.2)
[2020-06-11 17:17] LABS: Potassium 2.8 mmol/L (3.5-5.1)
--- NOTE | 2020-06-11 17:17 | ERPHSYRPT ---
- History of Present Illness Time Seen by Provider: 06/11/20 16:03 Historian: patient Exam Limitations: no limitations Patient Subjective Stated Complaint: Pt states "I am withdrawling from alcohol. I tried to wean myself off and I have been having seizures and nausea and vomiting from the withdrawl." Triage Nursing Assessment: Pt presented alert and oriented X3, skin pwd pt ambulates with a shakey gait, pt has bruising noted to right eye and pt stated he has been vomiting and having seizures. Pt able to speak in clear full sentences. Pt in no apparent respiratory distress. Physician History: 30 years old with history of seizures, alcoholism presented in the ER with 2 days history of worsening nausea vomiting and upper abdominal pain when he tried to wean himself off of alcohol. Patient report he has been drinking almost 1/5 daily and for the last couple of days started to lean him self off but did not go very well. He has done weaning himself off of alcohol in the past with good results. Patient reports multiple episodes of nonprojectile, nonbilious vomiting and yesterday had a couple of episodes of bright red blood with it. Pain is more in the epigastric area moderate intensity sharp nature, radiating to the back, worsening of both pain and vomiting with oral intake and is unable to hold anything down since yesterday. He is feeling fatigued and tired. He did have couple of drinks this morning to avoid the withdrawals. Is feeling shaky. Did have seizure yesterday. Timing/Duration: day(s) (2), gradual onset, worse Activities at Onset: rest Quality: burning, sharpness Abdominal Pain Onset Location: epigastric, periumbilical Pain Radiation: back Severity of Pain-Max: moderate Severity of Pain-Current: moderate Modifying Factors: Worsens With: coughing, movement, palpation, vomiting, position Associated Symptoms: fatigue, heartburn, nausea, vomiting Previous symptoms: same symptoms as today Allergies/Adverse Reactions: No Known Drug Allergies Allergy (Verified 04/03/19 10:55) Hx Tetanus, Diphtheria Vaccination/Date Given: No Hx Influenza Vaccination/Date Given: No Hx Pneumococcal Vaccination/Date Given: No Immunizations Up to Date: Yes Travel Risk - International Travel Have you traveled outside of the country in past 3 weeks: No - Coronavirus Screening Are you exhibiting any of the following symptoms?: No Close contact with a COVID-19 positive Pt in past 14-21 Days: No - Vaccine Status Have you recieved a Covid-19 vaccination: No - Review of Systems Constitutional: Chills, Fatigue Eyes: No Symptoms Ears, Nose, & Throat: No Symptoms Respiratory: Cough Cardiac: No Symptoms Abdominal/Gastrointestinal: Abdominal Pain, Nausea, Vomiting, Hematemesis Genitourinary Symptoms: No Symptoms Musculoskeletal: Myalgias Skin: No Symptoms Neurological: No Symptoms Psychological: Anxiety Endocrine: No Symptoms Hematologic/Lymphatic: No Symptoms Immunological/Allergic: No Symptoms - Past Medical History Pertinent Past Medical History: Yes Neurological History: Seizures ENT History: No Pertinent History Cardiac History: No Pertinent History Respiratory History: No Pertinent History Endocrine Medical History: No Pertinent History Musculoskeletal History: No Pertinent History GI Medical History: No Pertinent History History: No Pertinent History Psycho-Social History: Anxiety, Depression Male Reproductive Disorders: No Pertinent History Other Medical History: Left shoulder tendon tear without surgery - Past Surgical History Past Surgical History: No Neuro Surgical History: No Pertinent History Cardiac: No Pertinent History Respiratory: No Pertinent History Gastrointestinal: No Pertinent History Genitourinary: No Pertinent History Musculoskeletal: No Pertinent History Male Surgical History: No Pertinent History - Social History Smoking Status: Current every day smoker How long have you smoked: 8 years Exposure to second hand smoke: Yes Alcohol Use: Chronic (since age 14l none for 3 days) Drug Use: none Patient Lives Alone: No Significant Family History: no pertinent family hx - Nursing Vital Signs Nursing Vital Signs: Initial Vital Signs Temperature 100.0 F 06/11/20 16:04 Pulse Rate 118 H 06/11/20 16:04 Respiratory Rate 22 06/11/20 16:04 Blood Pressure 134/99 06/11/20 16:04 O2 Sat by Pulse Oximetry 94 L 06/11/20 16:04 Pain Scale Pain Intensity 0 - Physical Exam General Appearance: no apparent distress, alert, anxiety Eye Exam: PERRL/EOMI, other (Right subconjunctival hemorrhage) Ears, Nose, Throat Exam: TMs normal, pharyngeal erythema Neck Exam: normal inspection Respiratory Exam: normal breath sounds, lungs clear Cardiovascular Exam: normal heart sounds, tachycardia Gastrointestinal/Abdomen Exam: tenderness, guarding (Epigastrium/periumbilical area with guarding), No normal bowel sounds (Hypoactive bowel sounds), No distention, No rebound Back Exam: normal inspection, normal range of motion Extremity Exam: normal inspection, normal range of motion, pelvis stable Neurologic Exam: alert, oriented x 3, cooperative, 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 tested Skin Exam: normal color SpO2 Interpretation: normal SpO2: 94 O2 Delivery: Room Air - Course EKG Interpreted by Me: RATE (120), Sinus Tach, NORMAL AXIS, NORMAL INTERVALS, Non-specific ST Changes Ordered Tests: Active Orders 24 hr Category Date Time Status Bedrest ROUTINE Activity 06/11/20 20:35 Active Admit as Inpatient ROUTINE Care 06/11/20 20:35 Active Code Status Order ROUTINE Care 06/11/20 20:35 Active EKG-ER Only STAT Care 06/11/20 16:14 Completed Fall Protocol ROUTINE Care 06/11/20 20:35 Active IV Care Q6H Care 06/11/20 20:35 Active IV Insertion STAT Care 06/11/20 16:14 Completed NPO (ED) STAT Care 06/11/20 16:14 Completed Neuro Checks HOURLY Care 06/11/20 20:35 Active Eric Rhodes, Renny ROUTINE Care 06/11/20 20:35 Active ABDOMEN AND PELVIS W CONTRAST [CT] Stat Exams 06/11/20 16:14 Completed CHEST 1 VIEW (PORTABLE) Stat Exams 06/11/20 16:14 Completed AMYLASE Stat Lab 06/11/20 16:20 Completed BLOOD CULTURE Stat Lab 06/11/20 16:29 Received CBC W DIFF AM.LAB Lab 06/12/20 04:00 Ordered CBC W DIFF Stat Lab 06/11/20 16:20 Completed CMP AM.LAB Lab 06/12/20 04:00 Ordered CMP Stat Lab 06/11/20 16:20 Completed CULTURE,URINE Stat Lab 06/11/20 18:37 Received ETHYL ALCOHOL Stat Lab 06/11/20 18:48 Completed LIPASE Stat Lab 06/11/20 16:20 Completed MAG [MAGNESIUM] Stat Lab 06/11/20 16:20 Completed PROTIME WITH INR Stat Lab 06/11/20 16:20 Completed TROPONIN Q3H Lab 06/11/20 16:20 Completed TROPONIN Q3H Lab 06/11/20 19:15 Completed TROPONIN Q3H Lab 06/11/20 22:15 Ordered TROPONIN Q3H Lab 06/12/20 01:15 Ordered TROPONIN Q3H Lab 06/12/20 04:15 Ordered UA W/RFX UR CULTURE Stat Lab 06/11/20 18:37 Completed Urine Triage Profile Stat Lab 06/11/20 18:37 Completed Transfer Order Routine Transfer 06/11/20 Completed Medication Summary Generic Name Dose Route Start Last Admin Trade Name Collin PRN Reason Stop Dose Admin Albuterol/Ipratropium 3 ml 06/11/20 20:35 Duoneb 0.5-3 Mg/3 Ml Neb IH 07/11/20 20:34 Q4HPRN PRN SHORTNESS OF BREATH/WHEEZING Potassium Chloride 20 meq in 100 mls @ 50 mls/hr 06/11/20 17:45 06/11/20 20:43 Potassium Chloride 20 Meq In Water 100ml IV 06/11/20 21:44 50 mls/hr Q2H LESLY Administration Magnesium Sulfate/Dextrose 100 mls @ 100 mls/hr 06/11/20 17:45 06/11/20 19:32 Magnesium 1 Gm / 100 Ml D5w IV 06/11/20 19:44 100 mls/hr Q1H LESLY Administration Potassium Chloride/Sodium Chloride 1,000 mls @ 125 mls/hr 06/11/20 20:35 Sodium Chloride 0.9% W/ 40 Meq Kcl 1000ml IV 07/11/20 20:34 .Q8H LESLY Lorazepam 0 mg 06/11/20 20:35 Ativan 2 Mg/1 Ml Vial IV 07/11/20 20:34 Q2-4HPRN PRN ANXIETY Ondansetron HCl 4 mg 06/11/20 20:35 Zofran 4 Mg/2 Ml Vial IV 07/11/20 20:34 Q6H PRN PRN NAUSEA/VOMITING Pantoprazole Sodium 40 mg 06/12/20 10:00 Protonix 40 Mg Iv IV 07/12/20 09:59 Q24H10 LESLY Discontinued Medications Generic Name Dose Route Start Last Admin Trade Name Collin PRN Reason Stop Dose Admin Multivitamins/Minerals 10 ml/ 1,011.2 mls @ 100 mls/hr 06/11/20 16:30 06/11/20 16:48 Thiamine HCl 100 mg/ Folic IV 06/12/20 02:36 100 mls/hr Acid 1 mg/ Sodium Chloride .Q10H7M LESLY Administration Sodium Chloride 1,000 mls @ 999 mls/hr 06/11/20 17:37 04/21/21 18:30 Sodium Chloride 0.9% 1000 Ml IV 06/11/20 18:37 999 mls/hr .Q1H1M STA Administration Sodium Chloride Confirm 06/11/20 17:38 Sodium Chloride 0.9% 1000 Ml Administered 06/11/20 17:39 Dose 1,000 mls @ ud .ROUTE .STK-MED ONE Ceftriaxone Sodium/Dextrose Confirm 06/11/20 19:35 Rocephin 1 Gm-D5w 50 Ml Bag Administered 06/11/20 19:36 Dose 1 g in 50 mls @ ud IV .STK-MED ONE Ceftriaxone Sodium/Dextrose 1 g in 50 mls @ 100 mls/hr 06/11/20 19:37 06/11/20 19:41 Rocephin 1 Gm-D5w 50 Ml Bag IV 06/11/20 20:06 100 mls/hr STAT STA 100 mls/hr Administration Lorazepam 2 mg 06/11/20 16:15 06/11/20 16:27 Ativan 2 Mg/1 Ml Vial IV 06/11/20 16:16 2 mg STAT ONE Administration Lorazepam Confirm 06/11/20 16:24 Ativan 2 Mg/1 Ml Vial Administered 06/11/20 16:25 Dose 2 mg .ROUTE .STK-MED ONE Lorazepam 2 mg 06/11/20 17:33 06/11/20 17:35 Ativan 2 Mg/1 Ml Vial IV 06/11/20 17:34 2 mg STAT ONE Administration Lorazepam Confirm 06/11/20 17:34 Ativan 2 Mg/1 Ml Vial Administered 06/11/20 17:35 Dose 2 mg .ROUTE .STK-MED ONE Ondansetron HCl 4 mg 06/11/20 16:14 06/11/20 16:27 Zofran 4 Mg/2 Ml Vial IV 06/11/20 16:15 4 mg STAT ONE Administration Ondansetron HCl Confirm 06/11/20 16:24 Zofran 4 Mg/2 Ml Vial Administered 06/11/20 16:25 Dose 4 mg .ROUTE .STK-MED ONE Pantoprazole Sodium 40 mg 06/11/20 16:14 06/11/20 16:27 Protonix 40 Mg Iv IV 06/11/20 16:15 40 mg STAT ONE Administration Pantoprazole Sodium Confirm 06/11/20 16:24 Protonix 40 Mg Iv Administered 06/11/20 16:25 Dose 40 mg IV .STK-MED ONE Lab/Rad Data: Laboratory Result Diagrams 06/11/20 16:20 06/11/20 16:20 Laboratory Results 06/11/20 06/11/20 06/11/20 Range/Units 19:26 19:15 18:48 WBC (4.0-10.5) K/mm3 RBC (4.1-5.6) M/mm3 Hgb (12.5-18.0) gm/dl Hct (42-50) % MCV (78-100) fl MCH (26-32) pg MCHC (32-36) g/dl RDW (11.5-14.0) % Plt Count (150-450) K/mm3 MPV (7.5-11.0) fl Gran % (36.0-66.0) % Eos # (Auto) (0-0.5) Absolute Lymphs (auto) (1.0-4.6) Absolute Monos (auto) (0.0-1.3) Lymphocytes % (24.0-44.0) % Monocytes % (0.0-12.0) % Eosinophils % (0.00-5.0) % Basophils % (0.0-0.4) % Absolute Granulocytes (1.4-6.9) Basophils # (0-0.4) PT (8.83-12.87) SECONDS INR (0.8-3.0) Sodium (137-145) mmol/L Potassium (3.5-5.1) mmol/L Chloride (98-107) mmol/L Carbon Dioxide (22-30) mmol/L Anion Gap (5-15) MEQ/L BUN (9-20) mg/dL Creatinine (0.66-1.25) mg/dL Estimated GFR ML/MIN Glucose (74-106) mg/dL Calcium (8.4-10.2) mg/dL Magnesium (1.6-2.3) mg/dL Total Bilirubin (0.2-1.3) mg/dL AST (17-59) U/L ALT (0-50) U/L Alkaline Phosphatase (38-126) U/L Troponin I 0.033 (0.000-0.034) ng/mL Serum Total Protein (6.3-8.2) g/dL Albumin (3.5-5.0) g/dL Amylase (30-110) U/L Lipase (23-300) U/L Urine Color (YELLOW) Urine Appearance (CLEAR) Urine pH (5-6) Ur Specific [place] (1.005-1.025) Urine Protein (Negative) Urine Ketones (NEGATIVE) Urine Blood (0-5) Henry/ul Urine Nitrite (NEGATIVE) Urine Bilirubin (NEGATIVE) Urine Urobilinogen (0-1) mg/dL Ur Leukocyte Esterase (NEGATIVE) Urine WBC (Auto) (0-5) /HPF Urine RBC (Auto) (0-2) /HPF U Epithel Cells (Auto) (FEW) /HPF Urine Bacteria (Auto) (NEGATIVE) /HPF Urine Mucus (Auto) (NEGATIVE) /HPF Urine Yeast (Budding) (NEGATIVE) /HPF Urine Culture Reflexed (NO) Urine Glucose (NEGATIVE) mg/dL Urine Opiates Level (NEGATIVE) Ur Methadone (NEGATIVE) Urine Barbiturates (NEGATIVE) Ur Phencyclidine (PCP) (NEGATIVE) Urine Amphetamine (NEGATIVE) U Benzodiazepine Level (NEGATIVE) Urine Cocaine (NEGATIVE) Urine Marijuana (THC) (NEGATIVE) Ethyl Alcohol 273 H (0-10) mg/dL Influenza Type A Ag NEGATIVE (NEGATIVE) Influenza Type B Ag NEGATIVE (NEGATIVE) RSV (PCR) NEGATIVE (Negative) SARS-CoV-2 (PCR) NEGATIVE (NEGATIVE) 06/11/20 06/11/20 06/11/20 Range/Units 18:37 18:37 16:20 WBC (4.0-10.5) K/mm3 RBC (4.1-5.6) M/mm3 Hgb (12.5-18.0) gm/dl Hct (42-50) % MCV (78-100) fl MCH (26-32) pg MCHC (32-36) g/dl RDW (11.5-14.0) % Plt Count (150-450) K/mm3 MPV (7.5-11.0) fl Gran % (36.0-66.0) % Eos # (Auto) (0-0.5) Absolute Lymphs (auto) (1.0-4.6) Absolute Monos (auto) (0.0-1.3) Lymphocytes % (24.0-44.0) % Monocytes % (0.0-12.0) % Eosinophils % (0.00-5.0) % Basophils % (0.0-0.4) % Absolute Granulocytes (1.4-6.9) Basophils # (0-0.4) PT (8.83-12.87) SECONDS INR (0.8-3.0) Sodium (137-145) mmol/L Potassium (3.5-5.1) mmol/L Chloride (98-107) mmol/L Carbon Dioxide (22-30) mmol/L Anion Gap (5-15) MEQ/L BUN (9-20) mg/dL Creatinine (0.66-1.25) mg/dL Estimated GFR ML/MIN Glucose (74-106) mg/dL Calcium (8.4-10.2) mg/dL Magnesium 1.7 (1.6-2.3) mg/dL Total Bilirubin (0.2-1.3) mg/dL AST (17-59) U/L ALT (0-50) U/L Alkaline Phosphatase (38-126) U/L Troponin I (0.000-0.034) ng/mL Serum Total Protein (6.3-8.2) g/dL Albumin (3.5-5.0) g/dL Amylase (30-110) U/L Lipase (23-300) U/L Urine Color LIUS (YELLOW) Urine Appearance SLIGHTLY CLOUDY (CLEAR) Urine pH 7.0 (5-6) Ur Specific [place] >1.060 (1.005-1.025) Urine Protein >=500 (Negative) Urine Ketones MODERATE (NEGATIVE) Urine Blood MODERATE (0-5) Henry/ul Urine Nitrite NEGATIVE (NEGATIVE) Urine Bilirubin NEGATIVE (NEGATIVE) Urine Urobilinogen NEGATIVE (0-1) mg/dL Ur Leukocyte Esterase NEGATIVE (NEGATIVE) Urine WBC (Auto) 16-25 (0-5) /HPF Urine RBC (Auto) 26-50 (0-2) /HPF U Epithel Cells (Auto) NONE (FEW) /HPF Urine Bacteria (Auto) NONE (NEGATIVE) /HPF Urine Mucus (Auto) SLIGHT (NEGATIVE) /HPF Urine Yeast (Budding) Rare (NEGATIVE) /HPF Urine Culture Reflexed YES (NO) Urine Glucose NEGATIVE (NEGATIVE) mg/dL Urine Opiates Level NEGATIVE (NEGATIVE) Ur Methadone NEGATIVE (NEGATIVE) Urine Barbiturates NEGATIVE (NEGATIVE) Ur Phencyclidine (PCP) NEGATIVE (NEGATIVE) Urine Amphetamine NEGATIVE (NEGATIVE) U Benzodiazepine Level NEGATIVE (NEGATIVE) Urine Cocaine NEGATIVE (NEGATIVE) Urine Marijuana (THC) NEGATIVE (NEGATIVE) Ethyl Alcohol (0-10) mg/dL Influenza Type A Ag (NEGATIVE) Influenza Type B Ag (NEGATIVE) RSV (PCR) (Negative) SARS-CoV-2 (PCR) (NEGATIVE) 06/11/20 06/11/20 06/11/20 Range/Units 16:20 16:20 16:20 WBC (4.0-10.5) K/mm3 RBC (4.1-5.6) M/mm3 Hgb (12.5-18.0) gm/dl Hct (42-50) % MCV (78-100) fl MCH (26-32) pg MCHC (32-36) g/dl RDW (11.5-14.0) % Plt Count (150-450) K/mm3 MPV (7.5-11.0) fl Gran % (36.0-66.0) % Eos # (Auto) (0-0.5) Absolute Lymphs (auto) (1.0-4.6) Absolute Monos (auto) (0.0-1.3) Lymphocytes % (24.0-44.0) % Monocytes % (0.0-12.0) % Eosinophils % (0.00-5.0) % Basophils % (0.0-0.4) % Absolute Granulocytes (1.4-6.9) Basophils # (0-0.4) PT 13.0 H (8.83-12.87) SECONDS INR 1.15 (0.8-3.0) Sodium 134 L (137-145) mmol/L Potassium 2.8 L* (3.5-5.1) mmol/L Chloride 86 L (98-107) mmol/L Carbon Dioxide 23 (22-30) mmol/L Anion Gap 28.5 H (5-15) MEQ/L BUN 13 (9-20) mg/dL Creatinine 0.95 (0.66-1.25) mg/dL Estimated GFR > 60.0 ML/MIN Glucose 103 (74-106) mg/dL Calcium 9.9 (8.4-10.2) mg/dL Magnesium (1.6-2.3) mg/dL Total Bilirubin 1.20 (0.2-1.3) mg/dL AST 141 H (17-59) U/L ALT 84 H (0-50) U/L Alkaline Phosphatase 66 (38-126) U/L Troponin I 0.033 (0.000-0.034) ng/mL Serum Total Protein 7.7 (6.3-8.2) g/dL Albumin 4.9 (3.5-5.0) g/dL Amylase 684 H (30-110) U/L Lipase 44151 H (23-300) U/L Urine Color (YELLOW) Urine Appearance (CLEAR) Urine pH (5-6) Ur Specific [place] (1.005-1.025) Urine Protein (Negative) Urine Ketones (NEGATIVE) Urine Blood (0-5) Henry/ul Urine Nitrite (NEGATIVE) Urine Bilirubin (NEGATIVE) Urine Urobilinogen (0-1) mg/dL Ur Leukocyte Esterase (NEGATIVE) Urine WBC (Auto) (0-5) /HPF Urine RBC (Auto) (0-2) /HPF U Epithel Cells (Auto) (FEW) /HPF Urine Bacteria (Auto) (NEGATIVE) /HPF Urine Mucus (Auto) (NEGATIVE) /HPF Urine Yeast (Budding) (NEGATIVE) /HPF Urine Culture Reflexed (NO) Urine Glucose (NEGATIVE) mg/dL Urine Opiates Level (NEGATIVE) Ur Methadone (NEGATIVE) Urine Barbiturates (NEGATIVE) Ur Phencyclidine (PCP) (NEGATIVE) Urine Amphetamine (NEGATIVE) U Benzodiazepine Level (NEGATIVE) Urine Cocaine (NEGATIVE) Urine Marijuana (THC) (NEGATIVE) Ethyl Alcohol (0-10) mg/dL Influenza Type A Ag (NEGATIVE) Influenza Type B Ag (NEGATIVE) RSV (PCR) (Negative) SARS-CoV-2 (PCR) (NEGATIVE) 06/11/20 Range/Units 16:20 WBC 8.9 (4.0-10.5) K/mm3 RBC 5.26 (4.1-5.6) M/mm3 Hgb 17.2 (12.5-18.0) gm/dl Hct 48.7 (42-50) % MCV 92.6 (78-100) fl MCH 32.7 H (26-32) pg MCHC 35.3 (32-36) g/dl RDW 16.2 H (11.5-14.0) % Plt Count 47 L (150-450) K/mm3 MPV 11.0 (7.5-11.0) fl Gran % 81.6 H (36.0-66.0) % Eos # (Auto) 0 (0-0.5) Absolute Lymphs (auto) 0.51 L (1.0-4.6) Absolute Monos (auto) 1.12 (0.0-1.3) Lymphocytes % 5.7 L (24.0-44.0) % Monocytes % 12.6 H (0.0-12.0) % Eosinophils % 0.0 (0.00-5.0) % Basophils % 0.1 (0.0-0.4) % Absolute Granulocytes 7.24 H (1.4-6.9) Basophils # 0.01 (0-0.4) PT (8.83-12.87) SECONDS INR (0.8-3.0) Sodium (137-145) mmol/L Potassium (3.5-5.1) mmol/L Chloride (98-107) mmol/L Carbon Dioxide (22-30) mmol/L Anion Gap (5-15) MEQ/L BUN (9-20) mg/dL Creatinine (0.66-1.25) mg/dL Estimated GFR ML/MIN Glucose (74-106) mg/dL Calcium (8.4-10.2) mg/dL Magnesium (1.6-2.3) mg/dL Total Bilirubin (0.2-1.3) mg/dL AST (17-59) U/L ALT (0-50) U/L Alkaline Phosphatase (38-126) U/L Troponin I (0.000-0.034) ng/mL Serum Total Protein (6.3-8.2) g/dL Albumin (3.5-5.0) g/dL Amylase (30-110) U/L Lipase (23-300) U/L Urine Color (YELLOW) Urine Appearance (CLEAR) Urine pH (5-6) Ur Specific [place] (1.005-1.025) Urine Protein (Negative) Urine Ketones (NEGATIVE) Urine Blood (0-5) Henry/ul Urine Nitrite (NEGATIVE) Urine Bilirubin (NEGATIVE) Urine Urobilinogen (0-1) mg/dL Ur Leukocyte Esterase (NEGATIVE) Urine WBC (Auto) (0-5) /HPF Urine RBC (Auto) (0-2) /HPF U Epithel Cells (Auto) (FEW) /HPF Urine Bacteria (Auto) (NEGATIVE) /HPF Urine Mucus (Auto) (NEGATIVE) /HPF Urine Yeast (Budding) (NEGATIVE) /HPF Urine Culture Reflexed (NO) Urine Glucose (NEGATIVE) mg/dL Urine Opiates Level (NEGATIVE) Ur Methadone (NEGATIVE) Urine Barbiturates (NEGATIVE) Ur Phencyclidine (PCP) (NEGATIVE) Urine Amphetamine (NEGATIVE) U Benzodiazepine Level (NEGATIVE) Urine Cocaine (NEGATIVE) Urine Marijuana (THC) (NEGATIVE) Ethyl Alcohol (0-10) mg/dL Influenza Type A Ag (NEGATIVE) Influenza Type B Ag (NEGATIVE) RSV (PCR) (Negative) SARS-CoV-2 (PCR) (NEGATIVE) - Progress Progress: improved, re-examined Progress Note: 06/11/20 18:35 30 years alcoholic is evaluated for worsening epigastric pain with vomiting and dehydration. Given banana bag and fluids along with Zofran and PPIs. He is also given Ativan which calmed him down. Work-up showed normal white count and hemoglobin. Low platelets which is chronic. Chemistry profile showed hypokalemia with elevated gap and elevation in lipase/amylase. I have obtained CT abdomen pelvis which showed findings consistent with acute pancreatitis but minimal fluid but no phlegmon or necrosis. Patient is made n.p.o. and will continue with fluids along with electrolyte replacements. Discussed with and patient is admitted. Discussed with : Maribell Will see patient in: hospital (full admit) Counseled pt/family regarding: drug and/or alcohol abuse, lab results, diagnosis, rad results - Departure Departure Disposition: In-patient Admission Clinical Impression: High anion gap metabolic acidosis, Hypokalemia, Thrombocytopenia, Alcohol abuse Acute pancreatitis Qualifiers: Pancreatitis type: alcohol induced Acute pancreatitis complication: no infection or necrosis Qualified Code(s): K85.20 - Alcohol induced acute pancreatitis without necrosis or infection Condition: Fair Critical Care Time: Yes Critical Care Time(excluding separately billable procedures): Critical 30-74 mins
[2020-06-11 17:36] LABS: LIPASE 14872 U/L (23-300)
[2020-06-11] MEDS ORDERED: Sodium Chloride 0.9% 1000 ML 1,000 ML IV STA (17:37)
[2020-06-11] MEDS ORDERED: Sodium Chloride 0.9% 1000 ML 1,000 ML ONE (17:38)
[2020-06-11 17:41] LABS: Absolute Neutrophil Ct (ANC) 7.24 (1.4-6.9); BASOPHIL % 0.1 % (0.0-0.4); Basophil (Absolute #) 0.01 (0-0.4); Eosinophil (Absolute #) 0 (0-0.5); Hematocrit 48.7 % (42-50); Hemoglobin 17.2 gm/dl (12.5-18.0); Lymphocyte (Absolute #) 0.51 (1.0-4.6); Lymphocytes % 5.7 % (24.0-44.0); Mean Cell Volume 92.6 fl (78-100); Mean Corpuscular Hemoglobin 32.7 pg (26-32); Mean Corpuscular Hgb Concent. 35.3 g/dl (32-36); Monocyte (Absolute #) 1.12 (0.0-1.3); Monocytes % 12.6 % (0.0-12.0); Neutrophil % 81.6 % (36.0-66.0); Platelet Count 47 K/mm3 (150-450); Red Blood Count 5.26 M/mm3 (4.1-5.6); Red Cell Distribution Width 16.2 % (11.5-14.0); White Blood Count 8.9 K/mm3 (4.0-10.5)
[2020-06-11] MEDS: POTASSIUM CHLORIDE 20 mEq IN WATER 100ML 20 MEQ/100 ML BAG IV SCH ×2 (18:30→20:43)
[2020-06-11] MEDS: Magnesium 1 Gm / 100 Ml D5W*** 100 ML IV SCH ×2 (18:35→19:32)
[2020-06-11 19:20] LABS: Appearance SLIGHTLY CLOUDY (CLEAR); Bilirubin NEGATIVE (NEGATIVE); Blood MODERATE Ery/ul (0-5); Budding Yeast Rare /HPF (NEGATIVE); Glucose NEGATIVE (NEGATIVE); Ketones MODERATE (NEGATIVE); Leukocyte Esterase NEGATIVE (NEGATIVE); Mucus SLIGHT /HPF (NEGATIVE); Nitrite NEGATIVE (NEGATIVE); Protein,Urine Dip >=500 (Negative); RBC 26-50 /HPF (0-2); Specific Gravity >1.060 (1.005-1.025); Urobilinogen NEGATIVE mg/dL (0-1)
[2020-06-11 19:33] LABS: Amphetamine,Urine NEGATIVE (NEGATIVE); Barbiturate,Urine NEGATIVE (NEGATIVE); Benzodiazepine,Urine NEGATIVE (NEGATIVE); Cocaine,Urine NEGATIVE (NEGATIVE); Methadone,Urine NEGATIVE (NEGATIVE); Opiate,Urine NEGATIVE (NEGATIVE); PCP,Urine NEGATIVE (NEGATIVE); THC,Urine NEGATIVE (NEGATIVE)
[2020-06-11] MEDS ORDERED: ROCEPHIN 1 Gm-D5w 50 ml Bag** 1 G/50 ML IVPB IV ONE (19:35)
[2020-06-11] MEDS ORDERED: ROCEPHIN 1 Gm-D5w 50 ml Bag** 1 G/50 ML IVPB IV STA (19:37)
[2020-06-11 20:13] LABS: INFLUENZA A NEGATIVE (NEGATIVE); INFLUENZA B NEGATIVE (NEGATIVE); RESPIRATORY SYNCTIAL VIRUS NEGATIVE (Negative)
[2020-06-11] MEDS ORDERED: DUONEB 0.5-3 MG/3 ml Neb IH PRN (20:35)
[2020-06-11] MEDS ORDERED: VENTOLIN COMMON CANISTER IH PRN (22:46)
[2020-06-11] MEDS: SODIUM CHLORIDE 0.9% W/ 40 mEq KCL 1000ML 1,000 ML IV SCH (22:50)
[2020-06-11] MEDS: KEPPRA 500 MG PO SCH (23:10)
[2020-06-11] MEDS: Ativan 2 MG/1 ML VIAL IV PRN (23:10)
[2020-06-11 23:36] LABS: Slide Review 1 YES
[2020-06-12] MEDS: Ativan 2 MG/1 ML VIAL IV PRN ×4 (04:25→14:38)
[2020-06-12] MEDS: SODIUM CHLORIDE 0.9% W/ 40 mEq KCL 1000ML 1,000 ML IV SCH ×3 (04:26→21:36)
[2020-06-12 05:38] LABS: Absolute Neutrophil Ct (ANC) 6.11 (1.4-6.9); BASOPHIL % 0.3 % (0.0-0.4); Basophil (Absolute #) 0.02 (0-0.4); Eosinophil % 0.3 % (0.00-5.0); Eosinophil (Absolute #) 0.02 (0-0.5); Hematocrit 41.7 % (42-50); Hemoglobin 14.2 gm/dl (12.5-18.0); Lymphocyte (Absolute #) 0.66 (1.0-4.6); Lymphocytes % 8.5 % (24.0-44.0); Mean Cell Volume 96.1 fl (78-100); Mean Corpuscular Hemoglobin 32.7 pg (26-32); Mean Corpuscular Hgb Concent. 34.1 g/dl (32-36); Mean Platelet Volume 11.6 fl (7.5-11.0); Monocytes % 12.8 % (0.0-12.0); Neutrophil % 78.1 % (36.0-66.0); Platelet Count 36 K/mm3 (150-450); Red Blood Count 4.34 M/mm3 (4.1-5.6); Red Cell Distribution Width 16.3 % (11.5-14.0); White Blood Count 7.8 K/mm3 (4.0-10.5)
[2020-06-12 06:09] LABS: ALBUMIN 3.8 g/dL (3.5-5.0); ALKALINE PHOSPHATASE 47 U/L (38-126); ANION GAP 18.6 MEQ/L (5-15); BLOOD UREA NITROGEN 11 mg/dL (9-20); CHLORIDE 93 mmol/L (98-107); Calcium 8.9 mg/dL (8.4-10.2); Carbon Dioxide 24 mmol/L (22-30); Creatinine 1 0.69 mg/dL (0.66-1.25); EST GLOMERULAR FILTRATION RATE > 60.0 ML/MIN; Glucose 74 mg/dL (74-106); Potassium 3.4 mmol/L (3.5-5.1); SGOT/AST 97 U/L (17-59); SGPT/ALT 57 U/L (0-50); SODIUM 133 mmol/L (137-145); Total Protein 6.2 g/dL (6.3-8.2)
--- NOTE | 2020-06-12 07:37 | PCM.HP ---
History of Present Illness - Chief Complaint Chief Complaint: nausea, vomiting and upper abdominal pain for 2 days History of Present Illness: is a 30 year old male with history of seizures, alcoholism presented in the ER with 2 days history of worsening nausea vomiting and upper abdominal pain when he tried to wean himself off of alcohol. Patient report he has been drinking almost 1/5 daily and for the last couple of days started to lean him self off but did not go very well. He has done weaning himself off of alcohol in the past with good results. Patient reports multiple episodes of nonprojectile, nonbilious vomiting and yesterday had a couple of episodes of bright red blood with it. Pain is more in the epigastric area moderate intensity sharp nature, radiating to the back, worsening of both pain and vomiting with oral intake and is unable to hold anything down since yesterday. He is feeling fatigued and tired. He did have couple of drinks this morning to avoid the withdrawals. Is feeling shaky. Did have seizure yesterday. Timing/Duration: day(s) (2), gradual onset, worse Activities at Onset: rest Quality: burning, sharpness Abdominal Pain Onset Location: epigastric, periumbilical Pain Radiation: back Severity of Pain-Max: moderate Severity of Pain-Current: moderate Modifying Factors: Worsens With: coughing, movement, palpation, vomiting, position Associated Symptoms: fatigue, heartburn, nausea, vomiting Previous symptoms: same symptoms as today - Review of Systems Constitutional: No Fever, No Chills Eyes: No Symptoms Ears, Nose, & Throat: No Symptoms Respiratory: No Cough, No Short Of Breath Cardiac: No Chest Pain, No Edema, No Syncope Abdominal/Gastrointestinal: Abdominal Pain, Nausea, Vomiting, No Diarrhea Genitourinary Symptoms: No Dysuria Musculoskeletal: No Back Pain, No Neck Pain Skin: No Rash Neurological: No Dizziness, No Focal Weakness, No Sensory Changes Psychological: No Symptoms Endocrine: No Symptoms Hematologic/Lymphatic: No Symptoms Immunological/Allergic: No Symptoms Medications & Allergies Home Medications: Home Medication List Levetiracetam [Keppra 500 mg ] 500 mg PO BID #60 tablet 04/05/19 [Rx Confirmed 06/11/20] Allergies/Adverse Reactions: Allergies Allergy/AdvReac Type Severity Reaction Status Date / Time No Known Drug Allergies Allergy Verified 04/03/19 10:55 - Past Medical History Past Medical History: Yes Neurological History: Seizures ENT History: No Pertinent History Cardiac History: No Pertinent History Respiratory History: No Pertinent History Endocrine Medical History: No Pertinent History Musculoskelatal History: No Pertinent History GI Medical History: Pancreatitis History: No Pertinent History Pyscho-Social History: Depression Male Reproductive Disorders: No Pertinent History Comment: 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 - Past Surgical History Past Surgical History: No Neuro Surgical History: No Pertinent History Cardiac History: No Pertinent History Respiratory Surgery: No Pertinent History GI Surgical History: No Pertinent History Genitourinary Surgical Hx: No Pertinent History Musculskeletal Surgical Hx: No Pertinent History Male Surgical History: No Pertinent History - Social History Smoking Status: Current every day smoker How long have you smoked: 8 years Exposure to second hand smoke: Yes Alcohol: Daily Drug Use: none Significant Family History: no pertinent family hx - Physical Exam Vital Signs: Vital Signs - 24 hr Temp Pulse Resp BP Pulse Ox 06/12/20 06:05 101 H 17 143/90 95 06/12/20 05:00 111 H 21 137/81 95 06/12/20 04:00 98.7 F 103 H 22 125/80 92 L 06/12/20 03:00 103 H 18 114/76 92 L 06/12/20 01:00 122 H 22 121/83 94 L 06/12/20 00:01 120 H 06/12/20 00:00 98.6 F 120 H 21 120/76 93 L 06/11/20 23:00 116 H 22 112/80 95 06/11/20 22:47 123 H 22 95 06/11/20 22:00 125 H 20 132/88 90 L 06/11/20 21:41 98.5 F 123 H 20 133/89 90 L 06/11/20 21:11 94 L 06/11/20 20:00 115 H 18 147/97 95 06/11/20 19:05 120 H 135/90 94 L 06/11/20 18:37 120 H 20 153/104 98 06/11/20 17:19 120 H 36 H 126/96 94 L 06/11/20 16:04 100.0 F 118 H 22 134/99 94 L General Appearance: no apparent distress, alert Neurologic Exam: alert, oriented x 3, cooperative, normal mood/affect, nml cerebellar function, nml station & gait, sensation nml, No motor deficits Eye Exam: PERRL/EOMI, eyes nml inspection Ears, Nose, Throat Exam: normal ENT inspection, TMs normal, pharynx normal, moist mucous membranes Neck Exam: normal inspection, non-tender, supple, full range of motion Respiratory Exam: normal breath sounds, lungs clear, No respiratory distress Cardiovascular Exam: regular rate/rhythm, normal heart sounds, normal peripheral pulses Gastrointestinal/Abdomen Exam: soft, normal bowel sounds, No tenderness, No mass Back Exam: normal inspection, normal range of motion, No CVA tenderness, No vertebral tenderness Extremity Exam: normal inspection, normal range of motion, pelvis stable Skin Exam: normal color, warm, dry, No rash Lymphatic Exam: No adenopathy Results - Labs Lab/Micro Results: Lab Results-Last 24 Hours 06/11/20 06/11/20 06/11/20 Range/Units 16:20 16:20 16:20 WBC 8.9 (4.0-10.5) K/mm3 RBC 5.26 (4.1-5.6) M/mm3 Hgb 17.2 (12.5-18.0) gm/dl Hct 48.7 (42-50) % MCV 92.6 (78-100) fl MCH 32.7 H (26-32) pg MCHC 35.3 (32-36) g/dl RDW 16.2 H (11.5-14.0) % Plt Count 47 L (150-450) K/mm3 MPV 11.0 (7.5-11.0) fl Gran % 81.6 H (36.0-66.0) % Eos # (Auto) 0 (0-0.5) Absolute Lymphs (auto) 0.51 L (1.0-4.6) Absolute Monos (auto) 1.12 (0.0-1.3) Lymphocytes % 5.7 L (24.0-44.0) % Monocytes % 12.6 H (0.0-12.0) % Eosinophils % 0.0 (0.00-5.0) % Basophils % 0.1 (0.0-0.4) % Absolute Granulocytes 7.24 H (1.4-6.9) Basophils # 0.01 (0-0.4) PT 13.0 H (8.83-12.87) SECONDS INR 1.15 (0.8-3.0) Sodium 134 L (137-145) mmol/L Potassium 2.8 L* (3.5-5.1) mmol/L Chloride 86 L (98-107) mmol/L Carbon Dioxide 23 (22-30) mmol/L Anion Gap 28.5 H (5-15) MEQ/L BUN 13 (9-20) mg/dL Creatinine 0.95 (0.66-1.25) mg/dL Estimated GFR > 60.0 ML/MIN Glucose 103 (74-106) mg/dL Calcium 9.9 (8.4-10.2) mg/dL Magnesium (1.6-2.3) mg/dL Total Bilirubin 1.20 (0.2-1.3) mg/dL AST 141 H (17-59) U/L ALT 84 H (0-50) U/L Alkaline Phosphatase 66 (38-126) U/L Troponin I (0.000-0.034) ng/mL Serum Total Protein 7.7 (6.3-8.2) g/dL Albumin 4.9 (3.5-5.0) g/dL Amylase 684 H (30-110) U/L Lipase 62360 H (23-300) U/L Urine Color (YELLOW) Urine Appearance (CLEAR) Urine pH (5-6) Ur Specific Eldred (1.005-1.025) Urine Protein (Negative) Urine Ketones (NEGATIVE) Urine Blood (0-5) Henry/ul Urine Nitrite (NEGATIVE) Urine Bilirubin (NEGATIVE) Urine Urobilinogen (0-1) mg/dL Ur Leukocyte Esterase (NEGATIVE) Urine WBC (Auto) (0-5) /HPF Urine RBC (Auto) (0-2) /HPF U Epithel Cells (Auto) (FEW) /HPF Urine Bacteria (Auto) (NEGATIVE) /HPF Urine Mucus (Auto) (NEGATIVE) /HPF Urine Yeast (Budding) (NEGATIVE) /HPF Urine Culture Reflexed (NO) Urine Glucose (NEGATIVE) mg/dL Urine Opiates Level (NEGATIVE) Ur Methadone (NEGATIVE) Urine Barbiturates (NEGATIVE) Ur Phencyclidine (PCP) (NEGATIVE) Urine Amphetamine (NEGATIVE) U Benzodiazepine Level (NEGATIVE) Urine Cocaine (NEGATIVE) Urine Marijuana (THC) (NEGATIVE) Ethyl Alcohol (0-10) mg/dL Influenza Type A Ag (NEGATIVE) Influenza Type B Ag (NEGATIVE) RSV (PCR) (Negative) SARS-CoV-2 (PCR) (NEGATIVE) Slides for Path Review YES 06/11/20 06/11/20 06/11/20 Range/Units 16:20 16:20 18:37 WBC (4.0-10.5) K/mm3 RBC (4.1-5.6) M/mm3 Hgb (12.5-18.0) gm/dl Hct (42-50) % MCV (78-100) fl MCH (26-32) pg MCHC (32-36) g/dl RDW (11.5-14.0) % Plt Count (150-450) K/mm3 MPV (7.5-11.0) fl Gran % (36.0-66.0) % Eos # (Auto) (0-0.5) Absolute Lymphs (auto) (1.0-4.6) Absolute Monos (auto) (0.0-1.3) Lymphocytes % (24.0-44.0) % Monocytes % (0.0-12.0) % Eosinophils % (0.00-5.0) % Basophils % (0.0-0.4) % Absolute Granulocytes (1.4-6.9) Basophils # (0-0.4) PT (8.83-12.87) SECONDS INR (0.8-3.0) Sodium (137-145) mmol/L Potassium (3.5-5.1) mmol/L Chloride (98-107) mmol/L Carbon Dioxide (22-30) mmol/L Anion Gap (5-15) MEQ/L BUN (9-20) mg/dL Creatinine (0.66-1.25) mg/dL Estimated GFR ML/MIN Glucose (74-106) mg/dL Calcium (8.4-10.2) mg/dL Magnesium 1.7 (1.6-2.3) mg/dL Total Bilirubin (0.2-1.3) mg/dL AST (17-59) U/L ALT (0-50) U/L Alkaline Phosphatase (38-126) U/L Troponin I 0.033 (0.000-0.034) ng/mL Serum Total Protein (6.3-8.2) g/dL Albumin (3.5-5.0) g/dL Amylase (30-110) U/L Lipase (23-300) U/L Urine Color LUIS (YELLOW) Urine Appearance SLIGHTLY CLOUDY (CLEAR) Urine pH 7.0 (5-6) Ur Specific Eldred >1.060 (1.005-1.025) Urine Protein >=500 (Negative) Urine Ketones MODERATE (NEGATIVE) Urine Blood MODERATE (0-5) Henry/ul Urine Nitrite NEGATIVE (NEGATIVE) Urine Bilirubin NEGATIVE (NEGATIVE) Urine Urobilinogen NEGATIVE (0-1) mg/dL Ur Leukocyte Esterase NEGATIVE (NEGATIVE) Urine WBC (Auto) 16-25 (0-5) /HPF Urine RBC (Auto) 26-50 (0-2) /HPF U Epithel Cells (Auto) NONE (FEW) /HPF Urine Bacteria (Auto) NONE (NEGATIVE) /HPF Urine Mucus (Auto) SLIGHT (NEGATIVE) /HPF Urine Yeast (Budding) Rare (NEGATIVE) /HPF Urine Culture Reflexed YES (NO) Urine Glucose NEGATIVE (NEGATIVE) mg/dL Urine Opiates Level (NEGATIVE) Ur Methadone (NEGATIVE) Urine Barbiturates (NEGATIVE) Ur Phencyclidine (PCP) (NEGATIVE) Urine Amphetamine (NEGATIVE) U Benzodiazepine Level (NEGATIVE) Urine Cocaine (NEGATIVE) Urine Marijuana (THC) (NEGATIVE) Ethyl Alcohol (0-10) mg/dL Influenza Type A Ag (NEGATIVE) Influenza Type B Ag (NEGATIVE) RSV (PCR) (Negative) SARS-CoV-2 (PCR) (NEGATIVE) Slides for Path Review 06/11/20 06/11/20 06/11/20 Range/Units 18:37 18:48 19:15 WBC (4.0-10.5) K/mm3 RBC (4.1-5.6) M/mm3 Hgb (12.5-18.0) gm/dl Hct (42-50) % MCV (78-100) fl MCH (26-32) pg MCHC (32-36) g/dl RDW (11.5-14.0) % Plt Count (150-450) K/mm3 MPV (7.5-11.0) fl Gran % (36.0-66.0) % Eos # (Auto) (0-0.5) Absolute Lymphs (auto) (1.0-4.6) Absolute Monos (auto) (0.0-1.3) Lymphocytes % (24.0-44.0) % Monocytes % (0.0-12.0) % Eosinophils % (0.00-5.0) % Basophils % (0.0-0.4) % Absolute Granulocytes (1.4-6.9) Basophils # (0-0.4) PT (8.83-12.87) SECONDS INR (0.8-3.0) Sodium (137-145) mmol/L Potassium (3.5-5.1) mmol/L Chloride (98-107) mmol/L Carbon Dioxide (22-30) mmol/L Anion Gap (5-15) MEQ/L BUN (9-20) mg/dL Creatinine (0.66-1.25) mg/dL Estimated GFR ML/MIN Glucose (74-106) mg/dL Calcium (8.4-10.2) mg/dL Magnesium (1.6-2.3) mg/dL Total Bilirubin (0.2-1.3) mg/dL AST (17-59) U/L ALT (0-50) U/L Alkaline Phosphatase (38-126) U/L Troponin I 0.033 (0.000-0.034) ng/mL Serum Total Protein (6.3-8.2) g/dL Albumin (3.5-5.0) g/dL Amylase (30-110) U/L Lipase (23-300) U/L Urine Color (YELLOW) Urine Appearance (CLEAR) Urine pH (5-6) Ur Specific Eldred (1.005-1.025) Urine Protein (Negative) Urine Ketones (NEGATIVE) Urine Blood (0-5) Henry/ul Urine Nitrite (NEGATIVE) Urine Bilirubin (NEGATIVE) Urine Urobilinogen (0-1) mg/dL Ur Leukocyte Esterase (NEGATIVE) Urine WBC (Auto) (0-5) /HPF Urine RBC (Auto) (0-2) /HPF U Epithel Cells (Auto) (FEW) /HPF Urine Bacteria (Auto) (NEGATIVE) /HPF Urine Mucus (Auto) (NEGATIVE) /HPF Urine Yeast (Budding) (NEGATIVE) /HPF Urine Culture Reflexed (NO) Urine Glucose (NEGATIVE) mg/dL Urine Opiates Level NEGATIVE (NEGATIVE) Ur Methadone NEGATIVE (NEGATIVE) Urine Barbiturates NEGATIVE (NEGATIVE) Ur Phencyclidine (PCP) NEGATIVE (NEGATIVE) Urine Amphetamine NEGATIVE (NEGATIVE) U Benzodiazepine Level NEGATIVE (NEGATIVE) Urine Cocaine NEGATIVE (NEGATIVE) Urine Marijuana (THC) NEGATIVE (NEGATIVE) Ethyl Alcohol 273 H (0-10) mg/dL Influenza Type A Ag (NEGATIVE) Influenza Type B Ag (NEGATIVE) RSV (PCR) (Negative) SARS-CoV-2 (PCR) (NEGATIVE) Slides for Path Review 06/11/20 06/11/20 06/12/20 Range/Units 19:26 22:00 00:57 WBC (4.0-10.5) K/mm3 RBC (4.1-5.6) M/mm3 Hgb (12.5-18.0) gm/dl Hct (42-50) % MCV (78-100) fl MCH (26-32) pg MCHC (32-36) g/dl RDW (11.5-14.0) % Plt Count (150-450) K/mm3 MPV (7.5-11.0) fl Gran % (36.0-66.0) % Eos # (Auto) (0-0.5) Absolute Lymphs (auto) (1.0-4.6) Absolute Monos (auto) (0.0-1.3) Lymphocytes % (24.0-44.0) % Monocytes % (0.0-12.0) % Eosinophils % (0.00-5.0) % Basophils % (0.0-0.4) % Absolute Granulocytes (1.4-6.9) Basophils # (0-0.4) PT (8.83-12.87) SECONDS INR (0.8-3.0) Sodium (137-145) mmol/L Potassium (3.5-5.1) mmol/L Chloride (98-107) mmol/L Carbon Dioxide (22-30) mmol/L Anion Gap (5-15) MEQ/L BUN (9-20) mg/dL Creatinine (0.66-1.25) mg/dL Estimated GFR ML/MIN Glucose (74-106) mg/dL Calcium (8.4-10.2) mg/dL Magnesium (1.6-2.3) mg/dL Total Bilirubin (0.2-1.3) mg/dL AST (17-59) U/L ALT (0-50) U/L Alkaline Phosphatase (38-126) U/L Troponin I 0.034 0.031 (0.000-0.034) ng/mL Serum Total Protein (6.3-8.2) g/dL Albumin (3.5-5.0) g/dL Amylase (30-110) U/L Lipase (23-300) U/L Urine Color (YELLOW) Urine Appearance (CLEAR) Urine pH (5-6) Ur Specific Eldred (1.005-1.025) Urine Protein (Negative) Urine Ketones (NEGATIVE) Urine Blood (0-5) Henry/ul Urine Nitrite (NEGATIVE) Urine Bilirubin (NEGATIVE) Urine Urobilinogen (0-1) mg/dL Ur Leukocyte Esterase (NEGATIVE) Urine WBC (Auto) (0-5) /HPF Urine RBC (Auto) (0-2) /HPF U Epithel Cells (Auto) (FEW) /HPF Urine Bacteria (Auto) (NEGATIVE) /HPF Urine Mucus (Auto) (NEGATIVE) /HPF Urine Yeast (Budding) (NEGATIVE) /HPF Urine Culture Reflexed (NO) Urine Glucose (NEGATIVE) mg/dL Urine Opiates Level (NEGATIVE) Ur Methadone (NEGATIVE) Urine Barbiturates (NEGATIVE) Ur Phencyclidine (PCP) (NEGATIVE) Urine Amphetamine (NEGATIVE) U Benzodiazepine Level (NEGATIVE) Urine Cocaine (NEGATIVE) Urine Marijuana (THC) (NEGATIVE) Ethyl Alcohol (0-10) mg/dL Influenza Type A Ag NEGATIVE (NEGATIVE) Influenza Type B Ag NEGATIVE (NEGATIVE) RSV (PCR) NEGATIVE (Negative) SARS-CoV-2 (PCR) NEGATIVE (NEGATIVE) Slides for Path Review 06/12/20 06/12/20 06/12/20 Range/Units 00:57 04:15 04:15 WBC 7.8 (4.0-10.5) K/mm3 RBC 4.34 (4.1-5.6) M/mm3 Hgb 14.2 (12.5-18.0) gm/dl Hct 41.7 L (42-50) % MCV 96.1 (78-100) fl MCH 32.7 H (26-32) pg MCHC 34.1 (32-36) g/dl RDW 16.3 H (11.5-14.0) % Plt Count 36 L (150-450) K/mm3 MPV 11.6 H (7.5-11.0) fl Gran % 78.1 H (36.0-66.0) % Eos # (Auto) 0.02 (0-0.5) Absolute Lymphs (auto) 0.66 L (1.0-4.6) Absolute Monos (auto) 1.00 (0.0-1.3) Lymphocytes % 8.5 L (24.0-44.0) % Monocytes % 12.8 H (0.0-12.0) % Eosinophils % 0.3 (0.00-5.0) % Basophils % 0.3 (0.0-0.4) % Absolute Granulocytes 6.11 (1.4-6.9) Basophils # 0.02 (0-0.4) PT (8.83-12.87) SECONDS INR (0.8-3.0) Sodium (137-145) mmol/L Potassium 3.6 D (3.5-5.1) mmol/L Chloride (98-107) mmol/L Carbon Dioxide (22-30) mmol/L Anion Gap (5-15) MEQ/L BUN (9-20) mg/dL Creatinine (0.66-1.25) mg/dL Estimated GFR ML/MIN Glucose (74-106) mg/dL Calcium (8.4-10.2) mg/dL Magnesium (1.6-2.3) mg/dL Total Bilirubin (0.2-1.3) mg/dL AST (17-59) U/L ALT (0-50) U/L Alkaline Phosphatase (38-126) U/L Troponin I 0.022 (0.000-0.034) ng/mL Serum Total Protein (6.3-8.2) g/dL Albumin (3.5-5.0) g/dL Amylase (30-110) U/L Lipase (23-300) U/L Urine Color (YELLOW) Urine Appearance (CLEAR) Urine pH (5-6) Ur Specific Eldred (1.005-1.025) Urine Protein (Negative) Urine Ketones (NEGATIVE) Urine Blood (0-5) Henry/ul Urine Nitrite (NEGATIVE) Urine Bilirubin (NEGATIVE) Urine Urobilinogen (0-1) mg/dL Ur Leukocyte Esterase (NEGATIVE) Urine WBC (Auto) (0-5) /HPF Urine RBC (Auto) (0-2) /HPF U Epithel Cells (Auto) (FEW) /HPF Urine Bacteria (Auto) (NEGATIVE) /HPF Urine Mucus (Auto) (NEGATIVE) /HPF Urine Yeast (Budding) (NEGATIVE) /HPF Urine Culture Reflexed (NO) Urine Glucose (NEGATIVE) mg/dL Urine Opiates Level (NEGATIVE) Ur Methadone (NEGATIVE) Urine Barbiturates (NEGATIVE) Ur Phencyclidine (PCP) (NEGATIVE) Urine Amphetamine (NEGATIVE) U Benzodiazepine Level (NEGATIVE) Urine Cocaine (NEGATIVE) Urine Marijuana (THC) (NEGATIVE) Ethyl Alcohol (0-10) mg/dL Influenza Type A Ag (NEGATIVE) Influenza Type B Ag (NEGATIVE) RSV (PCR) (Negative) SARS-CoV-2 (PCR) (NEGATIVE) Slides for Path Review 06/12/20 Range/Units 04:15 WBC (4.0-10.5) K/mm3 RBC (4.1-5.6) M/mm3 Hgb (12.5-18.0) gm/dl Hct (42-50) % MCV (78-100) fl MCH (26-32) pg MCHC (32-36) g/dl RDW (11.5-14.0) % Plt Count (150-450) K/mm3 MPV (7.5-11.0) fl Gran % (36.0-66.0) % Eos # (Auto) (0-0.5) Absolute Lymphs (auto) (1.0-4.6) Absolute Monos (auto) (0.0-1.3) Lymphocytes % (24.0-44.0) % Monocytes % (0.0-12.0) % Eosinophils % (0.00-5.0) % Basophils % (0.0-0.4) % Absolute Granulocytes (1.4-6.9) Basophils # (0-0.4) PT (8.83-12.87) SECONDS INR (0.8-3.0) Sodium 133 L (137-145) mmol/L Potassium 3.4 L (3.5-5.1) mmol/L Chloride 93 L (98-107) mmol/L Carbon Dioxide 24 (22-30) mmol/L Anion Gap 18.6 H (5-15) MEQ/L BUN 11 (9-20) mg/dL Creatinine 0.69 (0.66-1.25) mg/dL Estimated GFR > 60.0 ML/MIN Glucose 74 (74-106) mg/dL Calcium 8.9 (8.4-10.2) mg/dL Magnesium (1.6-2.3) mg/dL Total Bilirubin 0.90 (0.2-1.3) mg/dL AST 97 H (17-59) U/L ALT 57 H (0-50) U/L Alkaline Phosphatase 47 (38-126) U/L Troponin I (0.000-0.034) ng/mL Serum Total Protein 6.2 L (6.3-8.2) g/dL Albumin 3.8 (3.5-5.0) g/dL Amylase (30-110) U/L Lipase (23-300) U/L Urine Color (YELLOW) Urine Appearance (CLEAR) Urine pH (5-6) Ur Specific Eldred (1.005-1.025) Urine Protein (Negative) Urine Ketones (NEGATIVE) Urine Blood (0-5) Henry/ul Urine Nitrite (NEGATIVE) Urine Bilirubin (NEGATIVE) Urine Urobilinogen (0-1) mg/dL Ur Leukocyte Esterase (NEGATIVE) Urine WBC (Auto) (0-5) /HPF Urine RBC (Auto) (0-2) /HPF U Epithel Cells (Auto) (FEW) /HPF Urine Bacteria (Auto) (NEGATIVE) /HPF Urine Mucus (Auto) (NEGATIVE) /HPF Urine Yeast (Budding) (NEGATIVE) /HPF Urine Culture Reflexed (NO) Urine Glucose (NEGATIVE) mg/dL Urine Opiates Level (NEGATIVE) Ur Methadone (NEGATIVE) Urine Barbiturates (NEGATIVE) Ur Phencyclidine (PCP) (NEGATIVE) Urine Amphetamine (NEGATIVE) U Benzodiazepine Level (NEGATIVE) Urine Cocaine (NEGATIVE) Urine Marijuana (THC) (NEGATIVE) Ethyl Alcohol (0-10) mg/dL Influenza Type A Ag (NEGATIVE) Influenza Type B Ag (NEGATIVE) RSV (PCR) (Negative) SARS-CoV-2 (PCR) (NEGATIVE) Slides for Path Review - Radiology Impressions Radiology Exams & Impressions: Radiology Procedures Category Date Time Status ABDOMEN AND PELVIS W CONTRAST [CT] Stat Exams 06/11/20 16:14 Completed CHEST 1 VIEW (PORTABLE) Stat Exams 06/11/20 16:[address]/ABDOMEN AND PELVIS W CONTRAST Indication: Abdomen pain. Vomiting blood. Alcohol withdrawal. Multiple contiguous axial images obtained through the abdomen and pelvis using 80 cc Isovue 370 contrast. Comparison: June 25, 2019. Lung bases are clear. Heart not enlarged. New small hiatal hernia. Noncontrasted stomach and bowel loops appear nonobstructed. Normal appendix. New prominent/edematous pancreatic head with diffuse peripancreatic stranding favoring acute pancreatitis. New small fluid along the left colic gutter and pelvis presumed reactive. No walled off fluid collection or free air. New diffuse fatty appearing liver. Remaining gallbladder, spleen, adrenal glands, kidneys, ureters, bladder, and aorta appear unremarkable. No pathologic retroperitoneal lymphadenopathy. Osseous structures intact. Impression: 1. New CT findings favoring acute pancreatitis with small free fluid. No phlegmon or free air. 2. New diffuse fatty liver and small hiatal hernia. - Other Procedures and Tests Respiratory Therapy 06/11/20 22:37 Oxygen Nasal Cannula 2 lpm 06/11/20 22:46 Respiratory Therapy Assessment DAILY Assessment/Plan (1) Acute pancreatitis Current Visit: Yes Status: Acute Qualifiers: Pancreatitis type: alcohol induced Acute pancreatitis complication: no infection or necrosis Qualified Code(s): K85.20 - Alcohol induced acute pancreatitis without necrosis or infection Code(s): K85.90 - ACUTE PANCREATITIS WITHOUT NECROSIS OR INFECTION, UNSP (2) Alcohol abuse Current Visit: Yes Status: Acute Code(s): F10.10 - ALCOHOL ABUSE, UNCOMPLICATED (3) High anion gap metabolic acidosis Current Visit: Yes Status: Acute Code(s): E87.2 - ACIDOSIS (4) Thrombocytopenia Current Visit: Yes Status: Acute (5) Alcohol withdrawal seizure Current Visit: No Status: Acute Qualifiers: Code(s): F10.239 - ALCOHOL DEPENDENCE WITH WITHDRAWAL, UNSPECIFIED; R56.9 - UNSPECIFIED CONVULSIONS
[2020-06-12] MEDS: PROTONIX 40 MG IV IV SCH (09:08)
[2020-06-12] MEDS: KEPPRA 500 MG PO SCH ×2 (09:08→21:36)
[2020-06-12] MEDS: Zofran 4 MG/2 ML VIAL IV PRN ×2 (09:40→15:14)
[2020-06-12] MEDS: Reglan 10 MG/2 ML IV SCH ×2 (09:40→18:30)
[2020-06-12 12:19] LABS: Slide Review 1 YES
[2020-06-12] MEDS ORDERED: Zofran 4 MG/2 ML VIAL IV PRN (15:32)
[2020-06-12] MEDS: Ativan 20 MG/10 ML MDV*** 40 MG in D5w 100ML Mini Bag 100 ML 80 ML IV SCH (16:25)
[2020-06-12] MEDS: Nicoderm CQ 21 MG TOP SCH (16:37)
[2020-06-12 16:53] LABS: Hematocrit 39.4 % (42-50); Hemoglobin 13.3 gm/dl (12.5-18.0); Mean Cell Volume 97.5 fl (78-100); Mean Corpuscular Hemoglobin 32.9 pg (26-32); Mean Corpuscular Hgb Concent. 33.8 g/dl (32-36); Mean Platelet Volume 9.9 fl (7.5-11.0); Platelet Count 37 K/mm3 (150-450); Red Blood Count 4.04 M/mm3 (4.1-5.6); White Blood Count 5.8 K/mm3 (4.0-10.5)
[2020-06-12 17:09] LABS: ALBUMIN 3.5 g/dL (3.5-5.0); ALKALINE PHOSPHATASE 47 U/L (38-126); AMYLASE 228 U/L (30-110); ANION GAP 9.1 MEQ/L (5-15); BLOOD UREA NITROGEN 12 mg/dL (9-20); CHLORIDE 96 mmol/L (98-107); Calcium 9.2 mg/dL (8.4-10.2); Carbon Dioxide 28 mmol/L (22-30); Creatinine 1 0.57 mg/dL (0.66-1.25); EST GLOMERULAR FILTRATION RATE > 60.0 ML/MIN; Glucose 132 mg/dL (74-106); Potassium 3.6 mmol/L (3.5-5.1); SGOT/AST 78 U/L (17-59); SGPT/ALT 47 U/L (0-50); SODIUM 130 mmol/L (137-145); Slide Review YES; Total Protein 6.1 g/dL (6.3-8.2)
[2020-06-12 17:31] LABS: LIPASE 4906 U/L (23-300)
[2020-06-13] MEDS: Reglan 10 MG/2 ML IV SCH ×3 (02:17→16:43)
[2020-06-13] MEDS: SODIUM CHLORIDE 0.9% W/ 40 mEq KCL 1000ML 1,000 ML IV SCH ×3 (04:58→21:50)
[2020-06-13] MEDS: Ativan 20 MG/10 ML MDV*** 40 MG in D5w 100ML Mini Bag 100 ML 80 ML IV SCH ×3 (05:09→21:11)
[2020-06-13] MEDS: KEPPRA 500 MG PO SCH ×2 (09:04→21:50)
[2020-06-13] MEDS: PROTONIX 40 MG IV IV SCH (09:04)
[2020-06-13] MEDS: Nicoderm CQ 21 MG TOP SCH ×2 (09:09→13:00)
[2020-06-13] MEDS ORDERED: IMODIUM 2 MG PO PRN (10:07)
[2020-06-13] MEDS ORDERED: IMODIUM 2 MG PO ONE (10:11)
[2020-06-13] MEDS: THERAGRAN MULTIVITAMIN PO SCH (11:50)
[2020-06-13] MEDS: VITAMIN B-1 100 MG PO SCH (11:50)
[2020-06-13] MEDS ORDERED: LOTRIMIN CREAM 30 GM TP SCH (14:28)
--- NOTE | 2020-06-13 15:27 | XRAY ---
Indication: Pancreatitis. Alcohol withdrawals. Conventional MRCP performed. Comparison: None Gallbladder moderately distended without gallstones. Cystic duct and common bile duct normal in course and caliber without focal stricture, obstruction, or filling defect. Intrahepatic biliary tree and pancreatic duct are unremarkable. Entire pancreas is prominent with minimal peripancreatic stranding and fluid favoring known pancreatitis. Head of the pancreas slightly effaces the duodenum. Tiny free fluid seen in both colic gutters. No obvious walled off fluid collection. Visualized stomach and bowel loops appear nonobstructed. Visualized liver appears fatty and MRI signal. Remaining visualized spleen, adrenal glands, kidneys, aorta, and IVC are unremarkable. No abnormal bone marrow signal. Impression: 1. Moderately distended gallbladder. Otherwise negative MRCP. 2. CT proven acute pancreatitis with tiny free fluid and incidental fatty liver.
[2020-06-14] MEDS: Reglan 10 MG/2 ML IV SCH ×3 (01:47→17:30)
[2020-06-14] MEDS: SODIUM CHLORIDE 0.9% W/ 40 mEq KCL 1000ML 1,000 ML IV SCH ×3 (05:55→22:09)
[2020-06-14 07:14] LABS: Hemoglobin 14.8 gm/dl (12.5-18.0); Mean Cell Volume 99.8 fl (78-100); Mean Corpuscular Hemoglobin 32.8 pg (26-32); Mean Corpuscular Hgb Concent. 32.9 g/dl (32-36); Mean Platelet Volume 10.5 fl (7.5-11.0); Platelet Count 94 K/mm3 (150-450); Red Blood Count 4.51 M/mm3 (4.1-5.6); Red Cell Distribution Width 15.1 % (11.5-14.0); White Blood Count 5.6 K/mm3 (4.0-10.5)
[2020-06-14 07:21] LABS: ALBUMIN 3.8 g/dL (3.5-5.0); ALKALINE PHOSPHATASE 54 U/L (38-126); AMYLASE 168 U/L (30-110); BLOOD UREA NITROGEN 5 mg/dL (9-20); CHLORIDE 103 mmol/L (98-107); Carbon Dioxide 29 mmol/L (22-30); Creatinine 1 0.63 mg/dL (0.66-1.25); EST GLOMERULAR FILTRATION RATE > 60.0 ML/MIN; Glucose 85 mg/dL (74-106); Potassium 3.9 mmol/L (3.5-5.1); SGOT/AST 54 U/L (17-59); SGPT/ALT 37 U/L (0-50); SODIUM 139 mmol/L (137-145); Total Protein 6.6 g/dL (6.3-8.2)
[2020-06-14 07:32] LABS: LIPASE 2565 U/L (23-300)
[2020-06-14] MEDS: Ativan 20 MG/10 ML MDV*** 40 MG in D5w 100ML Mini Bag 100 ML 80 ML IV SCH ×2 (07:41→23:06)
[2020-06-14 07:55] LABS: Slide Review YES
[2020-06-14] MEDS: PROTONIX 40 MG IV IV SCH (10:34)
[2020-06-14] MEDS: VITAMIN B-1 100 MG PO SCH (10:49)
[2020-06-14] MEDS: Nicoderm CQ 21 MG TOP SCH ×2 (10:49→21:42)
[2020-06-14] MEDS: THERAGRAN MULTIVITAMIN PO SCH (10:50)
[2020-06-14] MEDS: KEPPRA 500 MG PO SCH ×2 (10:50→21:40)
--- NOTE | 2020-06-14 14:39 | PCM.NOTE ---
Date and Time: 06/14/20 0234 Subjective Assessment: 30 yr old male seen and examined today. Patient was a limited historian. He reports history of seizure disorder and states that he has seizures in his sleep. He denies seeing a neurologist. He reports that he doesnt want to go to rehab for his alcohol use. 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 Patient reports he was on cymbalta but stopped taking it due to being sleepy while taking this medication. Patient denies any SI or HI. No other reported concerns at this time. - Review of Systems Constitutional: No Fever Eyes: Other (Subconjunctival hemorrhage R lateral eye) Ears, Nose, & Throat: No Symptoms Abdominal/Gastrointestinal: Nausea, Vomiting Psychological: Alcohol Abuse, Anxiety, Depression, No Suicidal Ideations, No Homicidal Ideations All Other Systems: Unable due to condition (Patient was sleepy during exam this am) Objective Exam General Appearance: moderate distress, alert Neurologic Exam: alert, oriented x 3, abnormal cerebellar tests (Finger to nose was abnormal), other (Patient would reply to questions but was limited with his interaction. He is on a ativan drip Patient had significant bilateral hand tremor), No normal mood/affect (Flat affect depressed mood) Skin Exam: normal color, warm, dry Eye Exam: scleral icterus, other (subconjunctival hemorrhage lateral R eye) Ears, Nose, Throat Exam: moist mucous membranes Respiratory Exam: crackles/rales, No normal breath sounds, No chest tenderness, No lungs clear, No respiratory distress, No diminished breath sounds Cardiovascular Exam: regular rate/rhythm, normal heart sounds, No murmur, No friction rub, No gallop Gastrointestinal/Abdomen Exam: soft, normal bowel sounds, No tenderness, No distention, No mass, No guarding Extremity Exam: No pedal edema, No swelling OBJECTIVE DATA Vital Signs: Vital Signs - 24 hr Temp Pulse Resp BP BP Pulse Ox 06/14/20 13:00 98 H 132/85 96 06/14/20 12:00 98.5 F 96 H 19 120/99 97 06/14/20 10:50 100 06/14/20 10:00 83 20 106/82 95 06/14/20 08:00 98.1 F 85 20 103/81 95 06/14/20 06:22 99.2 F 84 24 107/76 95 06/14/20 05:25 98.7 F 78 24 131/92 94 L 06/14/20 05:00 98.7 F 82 24 119/65 96 06/14/20 04:00 99.9 F 81 24 114/85 96 06/14/20 02:47 99.4 F 85 26 H 131/96 96 06/14/20 02:00 99.4 F 83 24 130/95 96 06/14/20 01:00 99.4 F 88 27 H 138/100 96 06/13/20 23:30 91 H 06/13/20 23:26 99.8 F 94 H 27 H 131/93 95 06/13/20 22:54 99.9 F 88 24 132/90 95 06/13/20 22:00 99.9 F 88 24 121/97 95 06/13/20 21:00 99.9 F 88 24 121/97 95 06/13/20 20:00 83 18 131/87 95 06/13/20 19:11 83 26 H 96 06/13/20 18:56 83 18 92 L 06/13/20 17:51 91 H 21 94 L 06/13/20 17:00 89 21 94 L 06/13/20 16:00 98.7 F 91 H 17 138/88 94 L 06/13/20 15:00 91 H 17 149/98 92 L Pain Assessment - Last Documented Pain Intensity 0 Intake and Output: Intake & Output 06/12/20 06/13/20 06/14/20 06/15/20 11:59 11:59 11:59 11:59 Intake Total 1164 3785 4354 Output Total 2085 300 Balance 1164 1131 4054 Weight 86 kg 86 kg 82.1 kg Lab Results: Lab Results-Last 24 Hours 06/14/20 06/14/20 06/14/20 Range/Units 05:37 05:37 05:37 WBC 5.6 (4.0-10.5) K/mm3 RBC 4.51 (4.1-5.6) M/mm3 Hgb 14.8 (12.5-18.0) gm/dl Hct 45.0 (42-50) % MCV 99.8 (78-100) fl MCH 32.8 H (26-32) pg MCHC 32.9 (32-36) g/dl RDW 15.1 H (11.5-14.0) % Plt Count 94 L D (150-450) K/mm3 MPV 10.5 (7.5-11.0) fl Sodium 139 D (137-145) mmol/L Potassium 3.9 (3.5-5.1) mmol/L Chloride 103 (98-107) mmol/L Carbon Dioxide 29 (22-30) mmol/L Anion Gap 11.0 (5-15) MEQ/L BUN 5 L (9-20) mg/dL Creatinine 0.63 L (0.66-1.25) mg/dL Estimated GFR > 60.0 ML/MIN Glucose 85 (74-106) mg/dL Calcium 10.0 (8.4-10.2) mg/dL Total Bilirubin 0.90 (0.2-1.3) mg/dL AST 54 (17-59) U/L ALT 37 (0-50) U/L Alkaline Phosphatase 54 (38-126) U/L Serum Total Protein 6.6 (6.3-8.2) g/dL Albumin 3.8 (3.5-5.0) g/dL Prealbumin 17.35 L (17.6-36.0) mg/dL Amylase 168 H (30-110) U/L Lipase 2565 H (23-300) U/L Slides for Path Review YES Radiology Exams: Radiology Procedures Category Date Time Status CHEST 1 VIEW (PORTABLE) Urgent Exams 06/14/20 12:26 Taken MRI ABD W/O CONTRAST [MRI] Routine Exams 06/13/20 10:06 Completed Assessment/Plan (1) Acute pancreatitis Current Visit: Yes Status: Acute Qualifiers: Pancreatitis type: alcohol induced Acute pancreatitis complication: no infection or necrosis Qualified Code(s): K85.20 - Alcohol induced acute pancreatitis without necrosis or infection Code(s): K85.90 - ACUTE PANCREATITIS WITHOUT NECROSIS OR INFECTION, UNSP (2) Anxiety and depression Current Visit: Yes Status: Acute Code(s): F41.9 - ANXIETY DISORDER, UNSPECIFIED; F32.9 - MAJOR DEPRESSIVE DISORDER, SINGLE EPISODE, UNSPECIFIED (3) Alcohol abuse Current Visit: Yes Status: Acute Assessment & Plan: Patient has significant alcohol abuse hx. Patient would benefit from rehab. Patient has not been medically cleared and is still requiring a ativan ip. Will continue to monitor symptoms. Code(s): F10.10 - ALCOHOL ABUSE, UNCOMPLICATED (4) Thrombocytopenia Current Visit: Yes Status: Acute Assessment & Plan: Likelly suppressed from alcohol abuse. His numbers have double since admission. Will continue to trend. (5) Hypokalemia Current Visit: Yes Status: Acute Assessment & Plan: Potassium has been corrected. Code(s): E87.6 - HYPOKALEMIA (6) Subconjunctival hemorrhage Current Visit: No Status: Acute Assessment & Plan: Present from fall and injury to face Code(s): H11.30 - CONJUNCTIVAL HEMORRHAGE, UNSPECIFIED EYE (7) Transaminitis Current Visit: No Status: Acute Assessment & Plan: liver enzymes has improved Code(s): R74.0 - NONSPEC ELEV OF LEVELS OF TRANSAMNS & LACTIC * DO NOT USE *
--- NOTE | 2020-06-14 17:32 | XRAY ---
Indication: possible aspiration. Comparison: June 11, 2020. Portable chest remains clear again with a few incidental calcified granulomas. Heart not enlarged. No new cardiopulmonary abnormalities. Comment: Preliminary interpretation was made by [facility]. No critical discrepancy.
[2020-06-14 17:42] LABS: AMYLASE 190 U/L (30-110); LIPASE 1907 U/L (23-300)
[2020-06-15] MEDS: Reglan 10 MG/2 ML IV SCH ×3 (01:28→17:50)
[2020-06-15] MEDS: SODIUM CHLORIDE 0.9% W/ 40 mEq KCL 1000ML 1,000 ML IV SCH ×2 (06:07→14:56)
[2020-06-15] MEDS: PROTONIX 40 MG IV IV SCH (10:20)
[2020-06-15 11:26] LABS: ALBUMIN 3.7 g/dL (3.5-5.0); ALKALINE PHOSPHATASE 53 U/L (38-126); AMYLASE 219 U/L (30-110); ANION GAP 12.1 MEQ/L (5-15); Absolute Neutrophil Ct (ANC) 3.33 (1.4-6.9); BASOPHIL % 0.8 % (0.0-0.4); BLOOD UREA NITROGEN 4 mg/dL (9-20); Basophil (Absolute #) 0.04 (0-0.4); CHLORIDE 104 mmol/L (98-107); Calcium 10.1 mg/dL (8.4-10.2); Carbon Dioxide 25 mmol/L (22-30); Creatinine 1 0.54 mg/dL (0.66-1.25); EST GLOMERULAR FILTRATION RATE > 60.0 ML/MIN; Eosinophil % 3.5 % (0.00-5.0); Eosinophil (Absolute #) 0.18 (0-0.5); Glucose 101 mg/dL (74-106); Hemoglobin 15.6 gm/dl (12.5-18.0); Lymphocyte (Absolute #) 0.76 (1.0-4.6); Lymphocytes % 14.8 % (24.0-44.0); Mean Cell Volume 97.9 fl (78-100); Mean Corpuscular Hemoglobin 33.2 pg (26-32); Mean Corpuscular Hgb Concent. 33.9 g/dl (32-36); Mean Platelet Volume 9.9 fl (7.5-11.0); Monocyte (Absolute #) 0.84 (0.0-1.3); Monocytes % 16.3 % (0.0-12.0); Neutrophil % 64.6 % (36.0-66.0); Platelet Count 160 K/mm3 (150-450); Potassium 4.1 mmol/L (3.5-5.1); Red Cell Distribution Width 14.9 % (11.5-14.0); SGOT/AST 49 U/L (17-59); SGPT/ALT 36 U/L (0-50); SODIUM 137 mmol/L (137-145); Total Protein 6.4 g/dL (6.3-8.2); White Blood Count 5.2 K/mm3 (4.0-10.5)
[2020-06-15 11:32] LABS: LIPASE 2448 U/L (23-300)
[2020-06-15] MEDS: VITAMIN B-1 100 MG PO SCH (11:56)
[2020-06-15] MEDS: KEPPRA 500 MG PO SCH ×2 (11:57→20:59)
[2020-06-15] MEDS: THERAGRAN MULTIVITAMIN PO SCH (11:57)
--- NOTE | 2020-06-15 14:36 | PCM.NOTE ---
Date and Time: 06/15/20 1430 Subjective Assessment: 30 yr old male seen and examined today. Patient was a limited historian due to being asleep. He was arousable but slept during exam. - Review of Systems All Other Systems: Unable due to condition (Patient was sleeping during most of exam.) Objective Exam General Appearance: other (Patient was in NAD was sleeping during exam), No alert Neurologic Exam: other (unable to assess due to patient sleeping), No alert, No oriented x 3 Skin Exam: normal color, warm, dry, No rash Eye Exam: eyes nml inspection, No scleral icterus Ears, Nose, Throat Exam: moist mucous membranes Respiratory Exam: normal breath sounds, lungs clear, No chest tenderness, No respiratory distress Cardiovascular Exam: regular rate/rhythm, normal heart sounds, No murmur, No friction rub, No gallop Gastrointestinal/Abdomen Exam: soft, normal bowel sounds, No tenderness Extremity Exam: No pedal edema, No swelling, No tenderness OBJECTIVE DATA Vital Signs: Vital Signs - 24 hr Temp Pulse Resp BP Pulse Ox 06/15/20 14:00 101 H 25 H 99 06/15/20 13:00 110 H 21 96 06/15/20 12:00 98.2 F 98 H 17 123/90 97 06/15/20 11:00 92 H 18 96 06/15/20 10:14 98 H 19 93 L 06/15/20 10:00 85 17 130/95 95 06/15/20 09:00 96.0 F 88 21 129/99 96 06/15/20 08:00 112 H 16 97 06/15/20 06:36 92 H 18 110/82 06/15/20 05:44 96.2 F 91 H 16 114/82 06/15/20 05:19 96.2 F 92 H 17 114/82 06/15/20 04:43 87 17 123/87 97 06/15/20 04:00 79 16 123/87 97 06/15/20 02:39 84 19 113/77 97 06/15/20 01:32 87 16 121/86 97 06/15/20 01:00 87 21 121/86 96 06/14/20 23:43 109 H 06/14/20 23:41 101 H 18 120/90 95 06/14/20 23:00 117 H 25 H 119/95 95 06/14/20 22:03 98 H 21 129/92 95 06/14/20 21:58 98 H 21 95 06/14/20 20:51 19 130/95 95 06/14/20 19:59 87 19 95 06/14/20 19:54 91 H 22 128/90 98 06/14/20 19:00 91 H 22 128/90 98 06/14/20 18:00 96 H 18 06/14/20 16:52 98.8 F 87 25 H 128/90 96 06/14/20 16:00 98.8 F 87 25 H 128/90 96 Pain Assessment - Last Documented Pain Intensity 0 Intake and Output: Intake & Output 06/13/20 06/14/20 06/15/20 06/16/20 11:59 11:59 11:59 11:59 Intake Total 3656 4354 6714 Output Total 2525 300 Balance 1131 4054 6714 Weight 86 kg 82.1 kg 82.1 kg Lab Results: Lab Results-Last 24 Hours 06/14/20 06/15/20 06/15/20 Range/Units 17:10 10:35 10:35 WBC 5.2 (4.0-10.5) K/mm3 RBC 4.70 (4.1-5.6) M/mm3 Hgb 15.6 (12.5-18.0) gm/dl Hct 46.0 (42-50) % MCV 97.9 (78-100) fl MCH 33.2 H (26-32) pg MCHC 33.9 (32-36) g/dl RDW 14.9 H (11.5-14.0) % Plt Count 160 D (150-450) K/mm3 MPV 9.9 (7.5-11.0) fl Gran % 64.6 (36.0-66.0) % Eos # (Auto) 0.18 (0-0.5) Absolute Lymphs (auto) 0.76 L (1.0-4.6) Absolute Monos (auto) 0.84 (0.0-1.3) Lymphocytes % 14.8 L (24.0-44.0) % Monocytes % 16.3 H (0.0-12.0) % Eosinophils % 3.5 (0.00-5.0) % Basophils % 0.8 (0.0-0.4) % Absolute Granulocytes 3.33 (1.4-6.9) Basophils # 0.04 (0-0.4) Sodium 137 (137-145) mmol/L Potassium 4.1 (3.5-5.1) mmol/L Chloride 104 (98-107) mmol/L Carbon Dioxide 25 (22-30) mmol/L Anion Gap 12.1 (5-15) MEQ/L BUN 4 L (9-20) mg/dL Creatinine 0.54 L (0.66-1.25) mg/dL Estimated GFR > 60.0 ML/MIN Glucose 101 (74-106) mg/dL Calcium 10.1 (8.4-10.2) mg/dL Total Bilirubin 0.70 (0.2-1.3) mg/dL AST 49 (17-59) U/L ALT 36 (0-50) U/L Alkaline Phosphatase 53 (38-126) U/L Serum Total Protein 6.4 (6.3-8.2) g/dL Albumin 3.7 (3.5-5.0) g/dL Amylase 190 H 219 H (30-110) U/L Lipase 1907 H 2448 H (23-300) U/L Radiology Exams: Radiology Procedures Category Date Time Status CHEST 1 VIEW (PORTABLE) Urgent Exams 06/14/20 12:26 Completed Assessment/Plan (1) Acute pancreatitis Current Visit: Yes Status: Acute Qualifiers: Pancreatitis type: alcohol induced Acute pancreatitis complication: no infection or necrosis Qualified Code(s): K85.20 - Alcohol induced acute pancreatitis without necrosis or infection Assessment & Plan: Patient's pancreatic enzymes had trended down but trended up slightly today. Will have patient resume NPO diet and increase IV fluids. Will have patient continue on CIWA protocol. Patient still cant be discharged for inpatient tx as his pancreatic enzymes have not returned to wnl. Will continue to monitor symptoms including abdominal pain and get repeat labs in am. Code(s): K85.90 - ACUTE PANCREATITIS WITHOUT NECROSIS OR INFECTION, UNSP (2) Anxiety and depression Current Visit: Yes Status: Acute Assessment & Plan: Patient will likely need to be on SSRI type medication. This can be addressed as outpatient as well Code(s): F41.9 - ANXIETY DISORDER, UNSPECIFIED; F32.9 - MAJOR DEPRESSIVE DISORDER, SINGLE EPISODE, UNSPECIFIED (3) Alcohol abuse Current Visit: Yes Status: Acute Assessment & Plan: Patient has relapsed and does not want to go for inpatient tx. This has been a chronic issue for patient and if he continues the alcohol abuse he is at risk for recurrent episodes of pancreatitis with repeat hospital admissions. Patient will have to make this decision at time of discharge Code(s): F10.10 - ALCOHOL ABUSE, UNCOMPLICATED (4) Thrombocytopenia Current Visit: Yes Status: Acute Assessment & Plan: Platelets are wnl at this time. (5) Hypokalemia Current Visit: Yes Status: Acute Assessment & Plan: Potassium is being repleted. Potassium is wnl Code(s): E87.6 - HYPOKALEMIA (6) Subconjunctival hemorrhage Current Visit: No Status: Acute Assessment & Plan: Improving we will continue to monitor. Code(s): H11.30 - CONJUNCTIVAL HEMORRHAGE, UNSPECIFIED EYE (7) Transaminitis Current Visit: No Status: Acute Assessment & Plan: Resolved. Code(s): R74.0 - NONSPEC ELEV OF LEVELS OF TRANSAMNS & LACTIC * DO NOT USE *
[2020-06-15] MEDS: Ativan 1 MG PO PRN (15:14)
[2020-06-15] MEDS: Sodium Chloride 0.9% W/ 20 mEq KCl/LITER 1,000 ML IV SCH ×2 (16:28→21:36)
[2020-06-16] MEDS: Ativan 1 MG PO PRN ×2 (00:36→02:48)
[2020-06-16] MEDS: Sodium Chloride 0.9% W/ 20 mEq KCl/LITER 1,000 ML IV SCH ×2 (02:40→07:39)
[2020-06-16] MEDS: Reglan 10 MG/2 ML IV SCH ×2 (04:48→09:12)
[2020-06-16 06:14] LABS: AMYLASE 206 U/L (30-110); LIPASE 1849 U/L (23-300)
[2020-06-16] MEDS: PROTONIX 40 MG IV IV SCH (09:12)
[2020-06-16] MEDS: KEPPRA 500 MG PO SCH (11:15)
[2020-06-16] MEDS: VITAMIN B-1 100 MG PO SCH (11:15)
[2020-06-16] MEDS: THERAGRAN MULTIVITAMIN PO SCH (11:15)
[2020-06-16] MEDS: Nicoderm CQ 21 MG TOP SCH (11:16)
[2020-06-16 12:21] VITALS: BP 128/86; PULSE 70; O2SAT 97
--- NOTE | 2020-06-16 18:44 | PCM.DS ---
Discharge Summary Date of Admission: 06/11/20 20:23 Admitting Physician: MAVERICK SPANN Primary Care Provider: MAVERICK SPANN Allergies Allergies No Known Drug Allergies Allergy (Verified 04/03/19 10:55) Hospital Summary - Hospital Course Hospital Course: Chief Complaint Diagnosis nausea, vomiting and upper abdominal pain for 2 days Allergies Allergy/AdvReac Type Severity Reaction Status Date / Time No Known Drug Allergies Allergy Verified 04/03/19 10:55 Vital Signs (Last 24 hours) Temp Pulse Resp BP Pulse Ox 06/16/20 12:00 98.4 F 80 14 125/105 99 06/16/20 11:00 98.3 F 70 18 120/76 96 06/16/20 09:55 76 12 95 06/16/20 09:46 70 22 95 06/16/20 09:00 96 06/16/20 08:00 69 14 130/90 06/16/20 07:00 97.9 F 72 16 132/92 96 06/16/20 06:00 73 14 120/96 96 06/16/20 04:00 84 15 96/75 96 06/16/20 03:00 89 17 127/94 97 06/16/20 01:56 71 17 131/108 96 06/16/20 01:00 92 H 21 129/100 97 06/16/20 00:01 92 H 06/16/20 00:00 74 21 129/100 96 06/15/20 23:00 89 19 112/101 98 06/15/20 22:03 87 17 130/94 98 06/15/20 20:00 97.7 F 81 21 136/94 98 06/15/20 19:38 80 18 98 Home Medications Medication Instructions Recorded Confirmed Last Taken Type Disulfiram 250 mg PO DAILY #30 tablet 06/16/20 Unknown Rx Levetiracetam [Keppra 500 mg 500 mg PO BID #60 tablet 06/16/20 Unknown Rx ] Current Medications Discontinued Medications Generic Name Dose Route Start Last Admin Trade Name Freq PRN Reason Stop Dose Admin Albuterol Sulfate 2 puff 06/11/20 22:46 Ventolin Common Canister IH 07/11/20 22:45 Q4H PRN PRN SHORTNESS OF BREATH/WHEEZING Albuterol/Ipratropium 3 ml 06/11/20 20:35 Duoneb 0.5-3 Mg/3 Ml Neb IH 07/11/20 20:34 Q4HPRN PRN SHORTNESS OF BREATH/WHEEZING Clotrimazole 30 gm 06/13/20 14:28 06/13/20 17:44 Lotrimin Cream 30 Gm TP 07/13/20 14:27 30 gm UD LESLY Administration Multivitamins/Minerals 10 ml/ 1,011.2 mls @ 100 mls/hr 06/11/20 16:30 06/11/20 16:48 Thiamine HCl 100 mg/ Folic IV 06/12/20 02:36 100 mls/hr Acid 1 mg/ Sodium Chloride .Q10H7M LESLY Administration Potassium Chloride 20 meq in 100 mls @ 50 mls/hr 06/11/20 17:45 06/11/20 20:43 Potassium Chloride 20 Meq In Water 100ml IV 06/11/20 21:44 50 mls/hr Q2H LESLY Administration Sodium Chloride 1,000 mls @ 999 mls/hr 06/11/20 17:37 06/11/20 18:30 Sodium Chloride 0.9% 1000 Ml IV 06/11/20 18:37 999 mls/hr .Q1H1M STA Administration Magnesium Sulfate/Dextrose 100 mls @ 100 mls/hr 06/11/20 17:45 06/11/20 19:32 Magnesium 1 Gm / 100 Ml D5w IV 06/11/20 19:44 100 mls/hr Q1H LESLY Administration Sodium Chloride Confirm 06/11/20 17:38 Sodium Chloride 0.9% 1000 Ml Administered 06/11/20 17:39 Dose 1,000 mls @ ud .ROUTE .STK-MED ONE Ceftriaxone Sodium/Dextrose Confirm 06/11/20 19:35 Rocephin 1 Gm-D5w 50 Ml Bag Administered 06/11/20 19:36 Dose 1 g in 50 mls @ ud IV .STK-MED ONE Ceftriaxone Sodium/Dextrose 1 g in 50 mls @ 100 mls/hr 06/11/20 19:37 19:41 Rocephin 1 Gm-D5w 50 Ml Bag IV 06/11/20 20:06 100 mls/hr STAT STA 100 mls/hr Administration Potassium Chloride/Sodium Chloride 1,000 mls @ 200 mls/hr 06/11/20 20:35 06/15/20 14:56 Sodium Chloride 0.9% W/ 40 Meq Kcl 1000ml IV 07/11/20 20:34 125 mls/hr .Q5H LESLY Administration Lorazepam 40 mg/ Dextrose 100 mls @ 5 mls/hr 06/12/20 17:00 06/14/20 07:41 IV 07/12/20 16:59 10 mls/hr .Q20H LESLY 10 mls/hr Administration Protocol Titrate Lorazepam 40 mg/ Dextrose 100 mls @ 10 mls/hr 06/13/20 11:40 06/15/20 06:39 IV 07/12/20 16:59 3 mg/hr .Q10H LESLY 7.5 mls/hr Titration Protocol 4 MG/HR Potassium Chloride/Sodium Chloride 1,000 mls @ 200 mls/hr 06/15/20 15:30 06/16/20 07:39 Sodium Chloride 0.9% W/ 20 Meq Kcl/Liter IV 07/15/20 15:29 200 mls/hr .Q5H LESLY Administration Levetiracetam 500 mg 06/11/20 23:06 06/16/20 11:15 Keppra 500 Mg PO 07/11/20 23:05 500 mg BID LESLY Administration Loperamide HCl 2 mg 06/13/20 10:07 Imodium 2 Mg PO 07/13/20 10:06 PRN PRN DIARRHEA Loperamide HCl 4 mg 06/13/20 10:11 06/13/20 10:18 Imodium 2 Mg PO 06/13/20 10:12 4 mg STAT ONE Administration Lorazepam 2 mg 06/11/20 16:15 06/11/20 16:27 Ativan 2 Mg/1 Ml Vial IV 06/11/20 16:16 2 mg STAT ONE Administration Lorazepam Confirm 06/11/20 16:24 Ativan 2 Mg/1 Ml Vial Administered 06/11/20 16:25 Dose 2 mg .ROUTE .STK-MED ONE Lorazepam 2 mg 06/11/20 17:33 06/11/20 17:35 Ativan 2 Mg/1 Ml Vial IV 06/11/20 17:34 2 mg STAT ONE Administration Lorazepam Confirm 06/11/20 17:34 Ativan 2 Mg/1 Ml Vial Administered 06/11/20 17:35 Dose 2 mg .ROUTE .STK-MED ONE Lorazepam 0 mg 06/11/20 20:35 06/12/20 14:38 Ativan 2 Mg/1 Ml Vial IV 07/11/20 20:34 2 mg Q2-4HPRN PRN Administration ANXIETY Lorazepam 2 - 4 mg 06/15/20 09:50 06/16/20 02:48 Ativan 1 Mg PO 07/15/20 09:49 2 mg Q2HPRN PRN Administration CIWA SCORE Metoclopramide HCl 10 mg 06/12/20 10:00 06/16/20 09:12 Reglan 10 Mg/2 Ml IV 07/12/20 09:59 10 mg Q8H LESLY Administration Multivitamins Therapeutic 1 tab 06/13/20 11:45 06/16/20 11:15 Theragran Multivitamin PO 07/13/20 11:44 1 tab QAM LESLY Administration Nicotine 21 mg 06/12/20 16:30 06/16/20 11:16 Nicoderm Cq 21 Mg TOP 07/12/20 16:29 Not Given Q24H10 LESLY Ondansetron HCl 4 mg 06/11/20 16:14 06/11/20 16:27 Zofran 4 Mg/2 Ml Vial IV 06/11/20 16:15 4 mg STAT ONE Administration Ondansetron HCl Confirm 06/11/20 16:24 Zofran 4 Mg/2 Ml Vial Administered 06/11/20 16:25 Dose 4 mg .ROUTE .STK-MED ONE Ondansetron HCl 4 mg 06/11/20 20:35 06/12/20 15:14 Zofran 4 Mg/2 Ml Vial IV 07/11/20 20:34 4 mg Q6H PRN PRN Administration NAUSEA/VOMITING Ondansetron HCl 4 mg 06/12/20 15:32 06/13/20 09:34 Zofran 4 Mg/2 Ml Vial IV 07/12/20 15:16 4 mg Q4H PRN PRN Administration NAUSEA/VOMITING Pantoprazole Sodium 40 mg 06/11/20 16:14 06/11/20 16:27 Protonix 40 Mg Iv IV 06/11/20 16:15 40 mg STAT ONE Administration Pantoprazole Sodium Confirm 06/11/20 16:24 Protonix 40 Mg Iv Administered 06/11/20 16:25 Dose 40 mg IV .STK-MED ONE Pantoprazole Sodium 40 mg 06/12/20 10:00 06/16/20 09:12 Protonix 40 Mg Iv IV 07/12/20 09:59 40 mg Q24H10 LESLY Administration Thiamine HCl 100 mg 06/13/20 11:45 06/16/20 11:15 Vitamin B-1 100 Mg PO 07/13/20 11:44 100 mg DAILY LESLY Administration Intake & Output (Last 24 hours) 06/14/20 06/15/20 06/16/20 06/17/20 11:59 11:59 11:59 11:59 Intake Total 4354 6714 4767 Output Total 300 700 Balance 4054 6749 4067 Weight 82.1 kg 82.1 kg 82 kg Microbiology Results (Last 24 hours) 06/11/20 16:29 Blood Blood Culture Gram Stain - Final Not Reportable 06/11/20 16:29 Blood Blood Culture - Final NO GROWTH 06/11/20 16:25 Blood Blood Culture Gram Stain - Final Not Reportable 06/11/20 16:25 Blood Blood Culture - Final NO GROWTH Laboratory Results (Last 24 hours) 06/16/20 04:37 Amylase 206 H Lipase 1849 H Orders (Last 24 hours) Category Date Time Status [place] Diet Diet 06/16/20 Breakfast Completed Low Fat Diet 06/16/20 Breakfast Completed Discharge Routine Discharge 06/16/20 Ordered AMYLASE AM.LAB Lab 06/16/20 04:37 Completed LIPASE AM.LAB Lab 06/16/20 04:37 Completed Patient Care Notes (Last 24 hours) 06/16/20 13:11 Nutrition Note by Bella Faye F/u Note: Diet advanced to lowfat/bland with 25-50% po intake. Labs 06/15 = BUN 4, Cr 0.54, elevated liver enzymes. adm weight 86kg; current weight 82 kg. goal of po intake >=25% met; change to po intake >=50% add #2) no weight loss. Will monitor and f/u prn. [facility] Ng Initialized on 06/16/20 13:11 - END OF NOTE 06/16/20 12:15 (created 06/16/20 14:15) Case Management Note by Kelli Ochoa DR. ROUNDED AND EVALUATED, STILL ENCOURAGING PT TO GO TO INPATIENT REHAB FACILITY FOR ALCOHOLISM. PT REFUSED. DISCUSSED DISCHARGE HOME WITH PT/SIG OTHER. PLAN TO DC HOME TODAY. PROVIDED WITH A LIST OF ALL SITES FOR A.A. MEETINGS IN [facility]. Initialized on 06/16/20 14:15 - END OF NOTE 06/16/20 09:38 Case Management Note by Dorothy Gray DR CALLED, WANTED D/C PLANNING TO SPEAK WITH AND ENCOURAGE PATIENT AND SIG OTHER FOR ADMISSION INTO [facility] FOR HELP WITH ALCOHOL ADDICTION. WENT IN TO SPEAK WITH THEM, PT WOULD NOT SPEAK BACK TO ME, SIG OTHER STATES SHE AND PT WILL DISCUSS IT AND WILL LET US KNOW THEIR DECISION. Initialized on 06/16/20 09:38 - END OF NOTE - Vitals & Intake/Output Vital Signs: Vital Signs Temperature 98.3 F 06/16/20 12:00 Pulse Rate 70 06/16/20 12:00 Respiratory Rate 18 06/16/20 12:00 Blood Pressure 128/86 06/16/20 12:00 O2 Sat by Pulse Oximetry 97 06/16/20 12:00 Intake & Output: Intake & Output 06/14/20 06/15/20 06/16/20 06/17/20 11:59 11:59 11:59 11:59 Intake Total 4354 6714 4717 Output Total 300 700 Balance 4054 6714 2203 Weight 82.1 kg 82.1 kg 82 kg - Lab Result Diagrams: 06/15/20 10:35 06/15/20 10:35 Lab Results-Last 24 Hrs: Lab Results-Last 24 Hours 06/16/20 Range/Units 04:37 Amylase 206 H (30-110) U/L Lipase 1849 H (23-300) U/L Micro Results-Entire Visit: Microbiology 06/11/20 16:29 Blood Culture Gram Stain - Final Blood Not Reportable Blood Culture - Final NO GROWTH 06/11/20 16:25 Blood Culture Gram Stain - Final Blood Not Reportable Blood Culture - Final NO GROWTH 06/11/20 18:37 Urine Culture - Final Clean Catch Midstream NO GROWTH - Procedures and Test Procedures and Tests throughout Hospitalization: Therapy Orders & Screens 06/11/20 22:03 Smoking Cessation Education ONCE Comment: Diagnosis: Etoh withdrawal Smoking Status: Current every day smoker How long have you smoked: 8 years Have you smoked in the past 12 months: Yes Approximately how many cigarettes per day: 10 Do you dip or chew tobacco: Yes 06/11/20 22:37 Oxygen Nasal Cannula 2 lpm Comment: Diagnosis: Etoh withdrawal 06/11/20 22:46 Respiratory Therapy Assessment DAILY Comment: Diagnosis: Etoh withdrawal Discharge Exam General Appearance: no apparent distress, alert Neurologic Exam: alert, oriented x 3, cooperative, normal mood/affect, nml cerebellar function, sensation nml, No motor deficits Eye Exam: PERRL, EOMI, eyes nml inspection Ears, Nose, Throat Exam: normal ENT inspection, pharynx normal, moist mucous membranes Neck Exam: normal inspection, non-tender, supple, full range of motion Respiratory Exam: normal breath sounds, lungs clear, No respiratory distress Cardiovascular Exam: regular rate/rhythm, normal heart sounds Gastrointestinal/Abdomen Exam: soft, No tenderness, No mass Male Genitalia Exam: deferred Rectal Exam: deferred Back Exam: normal inspection, normal range of motion, No CVA tenderness, No vertebral tenderness Extremity Exam: normal inspection, normal range of motion Skin Exam: normal color, warm, dry Final Diagnosis/Problem List - Final Discharge Diagnosis/Problem (1) Acute pancreatitis Status: Resolved Code(s): K85.90 - ACUTE PANCREATITIS WITHOUT NECROSIS OR INFECTION, UNSP (2) High anion gap metabolic acidosis Status: Acute Code(s): E87.2 - ACIDOSIS (3) Thrombocytopenia Status: Resolved Priority: High (4) Alcohol withdrawal seizure Status: Resolved Priority: High Code(s): F10.239 - ALCOHOL DEPENDENCE WITH WITHDRAWAL, UNSPECIFIED; R56.9 - UNSPECIFIED CONVULSIONS (5) Alcohol abuse with alcohol-induced anxiety disorder Status: Acute Priority: High Assessment & Plan: Patient refused for [facility] alcohol detoxication program Code(s): F10.180 - ALCOHOL ABUSE WITH ALCOHOL-INDUCED ANXIETY DISORDER - Discharge Discharge Date: 06/16/20 Disposition: Home, Self-Care Condition: Fair Prescriptions: New Disulfiram 250 mg PO DAILY #30 tablet Continue Levetiracetam [Keppra 500 mg ] 500 mg PO BID #60 tablet Instructions: Pancreatitis (DC), Alcohol Withdrawal (DC), Alcohol Abuse and Alcoholism (DC) Additional Instructions: SEE LISTS PROVIDED TO YOU OF LOCATION SITES FOR A.A. MEETINGS IN [facility]. Follow up with: MAVERICK SPANN MD [Primary Care Provider] - 06/24/20 3:00 pm (IN [place]) Forms: Discharge Instructions
== END 2020-06-16 13:03 | disposition home or self-care (01) | DRG 439 ==
LOC: ED 15:55 → EEVIPCON 20:23 → OBSVTOIN 20:23 → ICU 20:23
PROVIDERS: ADMIT General Practice; ATTEND General Practice
DX: K85.20 Alcohol induced acute pancreatitis without necrosis or infection (principal); E87.2 Acidosis; G40.89 Other seizures; F10.20 Alcohol dependence, uncomplicated; R11.2 Nausea with vomiting, unspecified; R10.13 Epigastric pain; R10.33 Periumbilical pain; D69.6 Thrombocytopenia, unspecified; H11.31 Conjunctival hemorrhage, right eye; F41.9 Anxiety disorder, unspecified; F32.9 Major depressive disorder, single episode, unspecified; R74.01 Elevation of levels of liver transaminase levels; Z20.828 Contact with and (suspected) exposure to other viral communicable diseases
CPT/HCPCS: 0241U; 36415; 71045; 74177; 74181; 80053; 80307; 81001; 82150; 83690; 83735; 84132; 84134; 84484; 85025; 85027; 85610; 87040; 87086; 93005; 94762; 96374; 96375; 96376; 99284; 99291; J0696; J2060; J2405; J3475; J3480; A9270-GY; G0480

== ENCOUNTER 2020-08-01 11:28 | Emergency (ER) | payer OTHER ==
--- NOTE | 2020-08-01 12:15 | ERPHSYRPT ---
- History of Present Illness Time Seen by Provider: 08/01/20 11:36 Historian: patient Exam Limitations: no limitations Patient Subjective Stated Complaint: " I have been puking nonstop since last night. I had pancreatitis a couple months ago and this is how that started last time. My stomach hurts really bad too". Triage Nursing Assessment: Pt presents to ER with complaints of vomiting. Pt is actively heaving upon arrival, pt was able to give urine sample with very dark foul urine noted. Pt complains of all over abdominal pain rating pain 8 on 10 scale. Abdomen is soft and tender upon exam. Respirations are slightly labored, lung sounds note wheezes bilaterally throughout upon. Physician History: 30 years old with history of alcohol abuse, seizure disorder, pancreatitis presented in the ER with chief complaint of generalized abdominal pain gradual onset 2 days ago and worsening since yesterday and multiple episodes of nonprojectile, nonbilious vomiting since last night. Patient is unable to hold anything down. Patient reports symptoms similar to last time when he had a pancreatitis. Patient reports cutting down his alcohol since his last visit with pancreatitis and last drink of beer was yesterday. Denies any tremors, shivering or sweating suggesting any withdrawal symptoms at present. Timing/Duration: day(s) (2), gradual onset, worse Activities at Onset: rest Quality: sharpness Abdominal Pain Onset Location: generalized abdomen Pain Radiation: no radiation Severity of Pain-Max: severe Severity of Pain-Current: severe Modifying Factors: Worsens With: coughing, movement, vomiting Associated Symptoms: fatigue, nausea, vomiting Previous symptoms: same symptoms as today Allergies/Adverse Reactions: No Known Drug Allergies Allergy (Verified 08/01/20 11:38) Home Medications: buprenorphine HCL [Buprenorphine HCl] 8 mg PO BID 08/01/20 [History] Hx Tetanus, Diphtheria Vaccination/Date Given: Yes Hx Influenza Vaccination/Date Given: Yes Hx Pneumococcal Vaccination/Date Given: No Immunizations Up to Date: Yes Travel Risk - International Travel Have you traveled outside of the country in past 3 weeks: No - Coronavirus Screening Are you exhibiting any of the following symptoms?: No Close contact with a COVID-19 positive Pt in past 14-21 Days: No - Vaccine Status Have you recieved a Covid-19 vaccination: No - Review of Systems Constitutional: Fatigue, Weakness Eyes: No Symptoms Ears, Nose, & Throat: No Symptoms Respiratory: No Symptoms Cardiac: No Symptoms Abdominal/Gastrointestinal: Abdominal Pain, Nausea, Vomiting Genitourinary Symptoms: No Symptoms Musculoskeletal: Myalgias Skin: No Symptoms Neurological: No Symptoms Psychological: Anxiety Endocrine: No Symptoms Hematologic/Lymphatic: No Symptoms Immunological/Allergic: No Symptoms - Past Medical History Pertinent Past Medical History: Yes Neurological History: Seizures ENT History: No Pertinent History Cardiac History: No Pertinent History Respiratory History: No Pertinent History Endocrine Medical History: No Pertinent History Musculoskeletal History: No Pertinent History GI Medical History: Pancreatitis History: No Pertinent History Psycho-Social History: Depression Male Reproductive Disorders: No Pertinent History Other Medical History: 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 - Past Surgical History Past Surgical History: No Neuro Surgical History: No Pertinent History Cardiac: No Pertinent History Respiratory: No Pertinent History Gastrointestinal: No Pertinent History Genitourinary: No Pertinent History Musculoskeletal: No Pertinent History Male Surgical History: No Pertinent History - Social History Smoking Status: Current every day smoker How long have you smoked: 8 years Exposure to second hand smoke: No Alcohol Use: Chronic (since age 14l none for 3 days) Drug Use: none Patient Lives Alone: No Significant Family History: no pertinent family hx - Nursing Vital Signs Nursing Vital Signs: Initial Vital Signs Temperature 98.7 F 08/01/20 11:32 Pulse Rate 115 H 08/01/20 11:32 Respiratory Rate 16 08/01/20 11:32 Blood Pressure 153/102 08/01/20 11:32 O2 Sat by Pulse Oximetry 96 08/01/20 11:32 Pain Scale Pain Intensity 2 - Physical Exam General Appearance: no apparent distress, alert Eye Exam: PERRL/EOMI, eyes nml inspection Ears, Nose, Throat Exam: pharyngeal erythema Neck Exam: normal inspection, supple, full range of motion Respiratory Exam: normal breath sounds, lungs clear Cardiovascular Exam: normal heart sounds, tachycardia Gastrointestinal/Abdomen Exam: soft, tenderness (Generalized), guarding (Generalized), No normal bowel sounds Back Exam: normal inspection, normal range of motion Extremity Exam: normal inspection, normal range of motion Neurologic Exam: alert, oriented x 3, 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, 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 Skin Exam: normal color SpO2 Interpretation: normal SpO2: 96 O2 Delivery: Room Air Ordered Tests: Active Orders 24 hr Category Date Time Status IV Insertion STAT Care 08/01/20 12:10 Active NPO (ED) STAT Care 08/01/20 12:10 Active ABDOMEN AND PELVIS W CONTRAST [CT] Stat Exams 08/01/20 12:11 Completed AMYLASE Stat Lab 08/01/20 12:17 Completed CBC W DIFF Stat Lab 08/01/20 12:17 Completed CMP Stat Lab 08/01/20 12:17 Completed ETHYL ALCOHOL Stat Lab 08/01/20 12:17 Completed LIPASE Stat Lab 08/01/20 12:17 Completed UA W/RFX UR CULTURE Stat Lab 08/01/20 12:16 Completed Medication Summary Discontinued Medications Generic Name Dose Route Start Last Admin Trade Name Freq PRN Reason Stop Dose Admin Sodium Chloride 1,000 mls @ 999 mls/hr 08/01/20 12:10 08/01/20 12:18 Sodium Chloride 0.9% 1000 Ml IV 08/01/20 13:10 999 mls/hr .Q1H1M STA Administration Sodium Chloride Confirm 08/01/20 12:16 Sodium Chloride 0.9% 1000 Ml Administered 08/01/20 12:17 Dose 1,000 mls @ ud .ROUTE .STK-MED ONE Morphine Sulfate 4 mg 08/01/20 12:10 08/01/20 12:18 Morphine Sulfate 4 Mg Inj IV 08/01/20 12:11 4 mg STAT ONE Administration Morphine Sulfate Confirm 08/01/20 12:16 Morphine Sulfate 4 Mg Inj Administered 08/01/20 12:17 Dose 4 mg .ROUTE .STK-MED ONE Ondansetron HCl 4 mg 08/01/20 12:10 08/01/20 12:18 Zofran 4 Mg/2 Ml Vial IV 08/01/20 12:11 4 mg STAT ONE Administration Ondansetron HCl Confirm 08/01/20 12:16 Zofran 4 Mg/2 Ml Vial Administered 08/01/20 12:17 Dose 4 mg .ROUTE .STK-MED ONE Pantoprazole Sodium 40 mg 08/01/20 12:10 08/01/20 12:18 Protonix 40 Mg Iv IV 08/01/20 12:11 40 mg STAT ONE Administration Pantoprazole Sodium Confirm 08/01/20 12:16 Protonix 40 Mg Iv Administered 08/01/20 12:17 Dose 40 mg IV .STK-MED ONE Lab/Rad Data: Laboratory Result Diagrams 08/01/20 12:17 08/01/20 12:17 Laboratory Results 08/01/20 08/01/20 08/01/20 Range/Units 12:17 12:17 12:17 WBC 7.6 (4.0-10.5) K/mm3 RBC 5.14 (4.1-5.6) M/mm3 Hgb 16.8 (12.5-18.0) gm/dl Hct 49.1 (42-50) % MCV 95.5 (78-100) fl MCH 32.7 H (26-32) pg MCHC 34.2 (32-36) g/dl RDW 13.4 (11.5-14.0) % Plt Count 146 L (150-450) K/mm3 MPV 9.9 (7.5-11.0) fl Gran % 78.1 H (36.0-66.0) % Eos # (Auto) 0.04 (0-0.5) Absolute Lymphs (auto) 1.17 (1.0-4.6) Absolute Monos (auto) 0.45 (0.0-1.3) Lymphocytes % 15.4 L (24.0-44.0) % Monocytes % 5.9 (0.0-12.0) % Eosinophils % 0.5 (0.00-5.0) % Basophils % 0.1 (0.0-0.4) % Absolute Granulocytes 5.94 (1.4-6.9) Basophils # 0.01 (0-0.4) Sodium 137 (137-145) mmol/L Potassium 3.4 L (3.5-5.1) mmol/L Chloride 94 L (98-107) mmol/L Carbon Dioxide 30 (22-30) mmol/L Anion Gap 17.4 H (5-15) MEQ/L BUN 10 (9-20) mg/dL Creatinine 0.77 (0.66-1.25) mg/dL Estimated GFR > 60.0 ML/MIN Glucose 120 H (74-106) mg/dL Calcium 10.6 H (8.4-10.2) mg/dL Total Bilirubin 1.00 (0.2-1.3) mg/dL AST 57 (17-59) U/L ALT 33 (0-50) U/L Alkaline Phosphatase 99 (38-126) U/L Serum Total Protein 7.8 (6.3-8.2) g/dL Albumin 5.1 H (3.5-5.0) g/dL Amylase 70 (30-110) U/L Lipase 303 H (23-300) U/L Urine Color (YELLOW) Urine Appearance (CLEAR) Urine pH (5-6) Ur Specific [place] (1.005-1.025) Urine Protein (Negative) Urine Ketones (NEGATIVE) Urine Blood (0-5) Henry/ul Urine Nitrite (NEGATIVE) Urine Bilirubin (NEGATIVE) Urine Urobilinogen (0-1) mg/dL Ur Leukocyte Esterase (NEGATIVE) Urine WBC (Auto) (0-5) /HPF Urine RBC (Auto) (0-2) /HPF U Epithel Cells (Auto) (FEW) /HPF Urine Bacteria (Auto) (NEGATIVE) /HPF Urine Mucus (Auto) (NEGATIVE) /HPF Urine Culture Reflexed (NO) Urine Glucose (NEGATIVE) mg/dL Ethyl Alcohol < 10 (0-10) mg/dL 08/01/20 Range/Units 12:16 WBC (4.0-10.5) K/mm3 RBC (4.1-5.6) M/mm3 Hgb (12.5-18.0) gm/dl Hct (42-50) % MCV (78-100) fl MCH (26-32) pg MCHC (32-36) g/dl RDW (11.5-14.0) % Plt Count (150-450) K/mm3 MPV (7.5-11.0) fl Gran % (36.0-66.0) % Eos # (Auto) (0-0.5) Absolute Lymphs (auto) (1.0-4.6) Absolute Monos (auto) (0.0-1.3) Lymphocytes % (24.0-44.0) % Monocytes % (0.0-12.0) % Eosinophils % (0.00-5.0) % Basophils % (0.0-0.4) % Absolute Granulocytes (1.4-6.9) Basophils # (0-0.4) Sodium (137-145) mmol/L Potassium (3.5-5.1) mmol/L Chloride (98-107) mmol/L Carbon Dioxide (22-30) mmol/L Anion Gap (5-15) MEQ/L BUN (9-20) mg/dL Creatinine (0.66-1.25) mg/dL Estimated GFR ML/MIN Glucose (74-106) mg/dL Calcium (8.4-10.2) mg/dL Total Bilirubin (0.2-1.3) mg/dL AST (17-59) U/L ALT (0-50) U/L Alkaline Phosphatase (38-126) U/L Serum Total Protein (6.3-8.2) g/dL Albumin (3.5-5.0) g/dL Amylase (30-110) U/L Lipase (23-300) U/L Urine Color LUIS (YELLOW) Urine Appearance SLIGHTLY CLOUDY (CLEAR) Urine pH 7.0 (5-6) Ur Specific [place] 1.027 (1.005-1.025) Urine Protein >=500 (Negative) Urine Ketones TRACE (NEGATIVE) Urine Blood NEGATIVE (0-5) Henry/ul Urine Nitrite NEGATIVE (NEGATIVE) Urine Bilirubin SMALL (NEGATIVE) Urine Urobilinogen 4 (0-1) mg/dL Ur Leukocyte Esterase NEGATIVE (NEGATIVE) Urine WBC (Auto) NONE (0-5) /HPF Urine RBC (Auto) 0-2 (0-2) /HPF U Epithel Cells (Auto) NONE (FEW) /HPF Urine Bacteria (Auto) NONE SEEN (NEGATIVE) /HPF Urine Mucus (Auto) SLIGHT (NEGATIVE) /HPF Urine Culture Reflexed NO (NO) Urine Glucose NEGATIVE (NEGATIVE) mg/dL Ethyl Alcohol (0-10) mg/dL - Progress Progress: improved, re-examined Progress Note: 08/01/20 13:35 31 years old with history of alcohol abuse and pancreatitis is evaluated for worsening abdominal pain and vomiting. He is given fluid bolus, symptomatic treatment with Zofran and morphine, on reevaluation feeling much better. Did not vomit while in the ER. Normal white count. Chemistry profile showed finding consistent with dehydration from repeated vomiting with a gap of 17. I have obtained CT with contrast which is negative for any acute findings. Has barely elevated lipase 303 which I believe is secondary to repeated vomiting. I do not think patient has acute pancreatitis. I believe he has some element of gastritis, will start him on Protonix and Zofran to go home and outpatient follow-up recommended. He is encouraged to cut down on his alcohol further. Discussed signs symptoms of worsening needing return to ER which he seems understanding. Stable for discharge. Counseled pt/family regarding: lab results, diagnosis, need for follow-up, rad results - Departure Departure Disposition: Home Clinical Impression: Acute gastritis without bleeding Qualifiers: Gastritis type: unspecified gastritis Qualified Code(s): K29.00 - Acute gastritis without bleeding Abdominal pain Qualifiers: Abdominal location: epigastric Qualified Code(s): R10.13 - Epigastric pain Condition: Stable Critical Care Time: No Referrals: MAVERICK SPANN MD [Primary Care Provider] - Follow Up with PCP/3 days Instructions: Nausea and Vomiting, Adult (DC) Additional Instructions: Do not take ibuprofen. Further cut down on alcohol. Take Tylenol as needed for pain. Take Zofran as needed for nausea and vomiting. Drink plenty of fluids. Follow-up with your primary care physician for reevaluation. Return to ER for any worsening. Prescriptions: Ondansetron ODT 4 MG [Zofran Odt 4 mg] 4 mg PO Q6H PRN PRN #10 tab.rapdis PRN Reason: Vomiting Promethazine HCl 25 mg [Phenergan 25 mg] 25 mg PO Q8H PRN PRN #10 tablet PRN Reason: Vomiting PANTOPRAZOLE 40 mg Tablet [Protonix 40MG Tablet] 40 mg PO QAM #30 tab
[2020-08-01] MEDS ORDERED: Sodium Chloride 0.9% 1000 ML 1,000 ML ONE (12:16)
[2020-08-01] MEDS ORDERED: MORPHINE SULFATE 4 MG INJ ONE (12:16)
[2020-08-01] MEDS ORDERED: PROTONIX 40 MG IV IV ONE (12:16)
[2020-08-01] MEDS ORDERED: Zofran 4 MG/2 ML VIAL ONE (12:16)
[2020-08-01] MEDS: Zofran 4 MG/2 ML VIAL IV ONE (12:18)
[2020-08-01] MEDS: PROTONIX 40 MG IV IV ONE (12:18)
[2020-08-01] MEDS: MORPHINE SULFATE 4 MG INJ IV ONE (12:18)
[2020-08-01] MEDS: Sodium Chloride 0.9% 1000 ML 1,000 ML IV STA (12:18)
[2020-08-01 12:27] LABS: Absolute Neutrophil Ct (ANC) 5.94 (1.4-6.9); BASOPHIL % 0.1 % (0.0-0.4); Basophil (Absolute #) 0.01 (0-0.4); Eosinophil % 0.5 % (0.00-5.0); Eosinophil (Absolute #) 0.04 (0-0.5); Hematocrit 49.1 % (42-50); Hemoglobin 16.8 gm/dl (12.5-18.0); Lymphocyte (Absolute #) 1.17 (1.0-4.6); Lymphocytes % 15.4 % (24.0-44.0); Mean Cell Volume 95.5 fl (78-100); Mean Corpuscular Hemoglobin 32.7 pg (26-32); Mean Corpuscular Hgb Concent. 34.2 g/dl (32-36); Mean Platelet Volume 9.9 fl (7.5-11.0); Monocyte (Absolute #) 0.45 (0.0-1.3); Monocytes % 5.9 % (0.0-12.0); Neutrophil % 78.1 % (36.0-66.0); Platelet Count 146 K/mm3 (150-450); Red Blood Count 5.14 M/mm3 (4.1-5.6); Red Cell Distribution Width 13.4 % (11.5-14.0); White Blood Count 7.6 K/mm3 (4.0-10.5)
[2020-08-01 12:27] LABS: Appearance SLIGHTLY CLOUDY (CLEAR); Bilirubin SMALL (NEGATIVE); Blood NEGATIVE Ery/ul (0-5); Glucose NEGATIVE (NEGATIVE); Ketones TRACE (NEGATIVE); Leukocyte Esterase NEGATIVE (NEGATIVE); Mucus SLIGHT /HPF (NEGATIVE); Nitrite NEGATIVE (NEGATIVE); Protein,Urine Dip >=500 (Negative); RBC 0-2 /HPF (0-2); Specific Gravity 1.027 (1.005-1.025); Urobilinogen 4 mg/dL (0-1)
[2020-08-01 12:38] LABS: ALBUMIN 5.1 g/dL (3.5-5.0); ALKALINE PHOSPHATASE 99 U/L (38-126); AMYLASE 70 U/L (30-110); ANION GAP 17.4 MEQ/L (5-15); BLOOD UREA NITROGEN 10 mg/dL (9-20); CHLORIDE 94 mmol/L (98-107); Calcium 10.6 mg/dL (8.4-10.2); Carbon Dioxide 30 mmol/L (22-30); Creatinine 1 0.77 mg/dL (0.66-1.25); EST GLOMERULAR FILTRATION RATE > 60.0 ML/MIN; Glucose 120 mg/dL (74-106); LIPASE 303 U/L (23-300); Potassium 3.4 mmol/L (3.5-5.1); SGOT/AST 57 U/L (17-59); SGPT/ALT 33 U/L (0-50); SODIUM 137 mmol/L (137-145); Total Protein 7.8 g/dL (6.3-8.2)
[2020-08-01 12:55] LABS: Bacteria NONE SEEN /HPF (NEGATIVE)
--- NOTE | 2020-08-01 13:07 | XRAY ---
Indication: Abdomen pain, nausea, and vomiting. History of pancreatitis. Multiple contiguous axial images obtained through the abdomen and pelvis using 80 cc Isovue 370 contrast. Comparison: June 11, 2020. Lung bases remain clear. Heart not enlarged. Noncontrasted stomach and bowel loops nonobstructed with normal appendix. No free fluid/air. Again mild diffuse fatty liver. Remaining liver, gallbladder, pancreas, spleen, adrenal glands, kidneys, ureters, bladder, and aorta are unremarkable. No pathologic retroperitoneal lymphadenopathy. Osseous structures intact. Impression: 1. Stable fatty liver. 2. Remaining CT abdomen/pelvis with contrast exam is negative.
[2020-08-01 13:40] VITALS: O2SAT 96
[2020-08-01 13:43] VITALS: BP 136/94; PULSE 80
== END 2020-08-01 13:53 | disposition home or self-care (01) ==
LOC: ED 11:28
DX: K29.00 Acute gastritis without bleeding (principal); R10.13 Epigastric pain
CPT/HCPCS: 36000; 36415; 74177; 80053; 81001; 82150; 83690; 85025; 96360; 96374; 96375; 99284; G0480; 80307; J2270; J2405

== ENCOUNTER 2020-09-01 08:37 | Emergency (ER) | payer OTHER ==
[2020-09-01] MEDS ORDERED: Zofran 4 MG/2 ML VIAL ONE (08:54)
[2020-09-01] MEDS ORDERED: Sodium Chloride 0.9% 1000 ML 1,000 ML ONE (08:55)
[2020-09-01] MEDS ORDERED: MORPHINE SULFATE 2 MG INJ ONE (08:55)
[2020-09-01] MEDS ORDERED: Ativan 2 MG/1 ML VIAL ONE ×2 (08:55→15:03)
[2020-09-01] MEDS ORDERED: MORPHINE SULFATE 4 MG INJ IV ONE (09:06)
[2020-09-01] MEDS ORDERED: Zofran 4 MG/2 ML VIAL IV ONE (09:06)
[2020-09-01] MEDS ORDERED: Sodium Chloride 0.9% 1000 ML 1,000 ML IV STA (09:06)
[2020-09-01 09:18] LABS: BASOPHIL % 0.3 % (0.0-0.4); Basophil (Absolute #) 0.02 (0-0.4); Eosinophil (Absolute #) 0 (0-0.5); Hematocrit 47.9 % (42-50); Hemoglobin 16.1 gm/dl (12.5-18.0); Lymphocyte (Absolute #) 0.46 (1.0-4.6); Lymphocytes % 6.4 % (24.0-44.0); Mean Corpuscular Hemoglobin 32.6 pg (26-32); Mean Corpuscular Hgb Concent. 33.6 g/dl (32-36); Mean Platelet Volume 10.1 fl (7.5-11.0); Monocyte (Absolute #) 0.36 (0.0-1.3); Neutrophil % 88.3 % (36.0-66.0); Platelet Count 73 K/mm3 (150-450); Red Blood Count 4.94 M/mm3 (4.1-5.6); Red Cell Distribution Width 12.6 % (11.5-14.0); White Blood Count 7.1 K/mm3 (4.0-10.5)
[2020-09-01] MEDS ORDERED: Ativan 2 MG/1 ML VIAL IV ONE ×2 (09:22→14:59)
[2020-09-01 09:28] LABS: ALKALINE PHOSPHATASE 89 U/L (38-126); ANION GAP 35.9 MEQ/L (5-15); BLOOD UREA NITROGEN 12 mg/dL (9-20); CHLORIDE 90 mmol/L (98-107); Calcium 11.1 mg/dL (8.4-10.2); Carbon Dioxide 17 mmol/L (22-30); EST GLOMERULAR FILTRATION RATE > 60.0 ML/MIN; Glucose 115 mg/dL (74-106); LIPASE 477 U/L (23-300); Potassium 3.7 mmol/L (3.5-5.1); SGOT/AST 124 U/L (17-59); SGPT/ALT 71 U/L (0-50); SODIUM 139 mmol/L (137-145)
[2020-09-01 09:50] LABS: Appearance CLEAR (CLEAR); Bilirubin NEGATIVE (NEGATIVE); Blood MODERATE Ery/ul (0-5); Glucose 50 mg/dL (NEGATIVE); Hyaline Casts 0-2 /LPF (0-2); Ketones MODERATE (NEGATIVE); Leukocyte Esterase NEGATIVE (NEGATIVE); Nitrite NEGATIVE (NEGATIVE); Protein,Urine Dip >=500 (Negative); Urobilinogen NEGATIVE mg/dL (0-1)
--- NOTE | 2020-09-01 09:59 | ERPHSYRPT ---
- History of Present Illness Time Seen by Provider: 09/01/20 08:50 Historian: patient Exam Limitations: no limitations Patient Subjective Stated Complaint: pt reports vomiting for 12 hours, history of pancreatitis and alcohol abuse/withdrawl, reports RUQ abdominal pain also Triage Nursing Assessment: pt is aox3, pt is ashen upon arrival, skin is moist, pt tachypneic, respirations shallow, abd soft, tender to the RUQ, bowel sounds normoactive x4, radial pulses strong and equal, cap refill < 3 seconds. Physician History: Patient is a 30-year-old male presents to our ED with complaints of epigastric pain. Symptoms started approximately 12 hours prior to arrival. Patient has been vomiting during this time. Patient states he has a history of alcohol abuse. Patient has not had any alcohol in over 12 hours. Patient believes he may be withdrawing. Patient is also on Suboxone. Pain described as an ache that is localized to the epigastrium. No associated diaphoresis. No trauma. No fever. Symptoms are moderate in intensity. No specific worsening improving factors. Patient states is otherwise healthy. Significant other at bedside. They voices no other complaints or concerns at this time. Timing/Duration: yesterday Activities at Onset: none Quality: aching Abdominal Pain Onset Location: epigastric Pain Radiation: no radiation Severity of Pain-Max: moderate Severity of Pain-Current: mild Modifying Factors: Improves With: nothing Associated Symptoms: No chest pain, No diarrhea, No fever/chills, No neck pain, No syncope, No testicular pain Previous symptoms: no prior history Allergies/Adverse Reactions: No Known Drug Allergies Allergy (Verified 09/01/20 09:18) Home Medications: buprenorphine HCL [Buprenorphine HCl] 8 mg PO BID 08/01/20 [History] Hx Tetanus, Diphtheria Vaccination/Date Given: Yes Hx Influenza Vaccination/Date Given: No Hx Pneumococcal Vaccination/Date Given: No Immunizations Up to Date: Yes Travel Risk - International Travel Have you traveled outside of the country in past 3 weeks: No - Coronavirus Screening Are you exhibiting any of the following symptoms?: No Close contact with a COVID-19 positive Pt in past 14-21 Days: No - Vaccine Status Have you recieved a Covid-19 vaccination: No - Review of Systems Constitutional: No Symptoms, No Fever, No Chills Eyes: No Symptoms Ears, Nose, & Throat: No Symptoms Respiratory: No Symptoms, No Cough, No Dyspnea Cardiac: No Symptoms, No Chest Pain, No Edema, No Syncope Abdominal/Gastrointestinal: No Symptoms, No Abdominal Pain, No Nausea, No Vomiting, No Diarrhea Genitourinary Symptoms: No Symptoms, No Dysuria Musculoskeletal: No Symptoms, No Back Pain, No Neck Pain Skin: No Symptoms, No Rash Neurological: No Symptoms, No Dizziness, No Focal Weakness, No Sensory Changes Psychological: No Symptoms Endocrine: No Symptoms Hematologic/Lymphatic: No Symptoms Immunological/Allergic: No Symptoms All Other Systems: Reviewed and Negative - Past Medical History Pertinent Past Medical History: Yes Neurological History: Seizures ENT History: No Pertinent History Cardiac History: No Pertinent History Respiratory History: No Pertinent History Endocrine Medical History: No Pertinent History Musculoskeletal History: No Pertinent History GI Medical History: Pancreatitis History: No Pertinent History Psycho-Social History: Anxiety, Depression Male Reproductive Disorders: No Pertinent History Other Medical History: 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 - Past Surgical History Past Surgical History: No Neuro Surgical History: No Pertinent History Cardiac: No Pertinent History Respiratory: No Pertinent History Gastrointestinal: No Pertinent History Genitourinary: No Pertinent History Musculoskeletal: No Pertinent History Male Surgical History: No Pertinent History - Social History Smoking Status: Current every day smoker How long have you smoked: 8 years Exposure to second hand smoke: No Alcohol Use: Chronic (since age 14l none for 3 days) Drug Use: none Patient Lives Alone: No Significant Family History: no pertinent family hx - Nursing Vital Signs Nursing Vital Signs: Initial Vital Signs Temperature 98.6 F 09/01/20 08:44 Pulse Rate 127 H 09/01/20 08:44 Respiratory Rate 28 H 09/01/20 08:44 Blood Pressure 157/100 09/01/20 08:44 O2 Sat by Pulse Oximetry 97 09/01/20 08:44 Pain Scale Pain Intensity 8 - Physical Exam General Appearance: mild distress, alert Eye Exam: PERRL/EOMI, eyes nml inspection Ears, Nose, Throat Exam: normal ENT inspection, pharynx normal, moist mucous membranes Neck Exam: normal inspection, non-tender, supple, full range of motion Respiratory Exam: normal breath sounds, lungs clear, No respiratory distress Cardiovascular Exam: regular rate/rhythm, normal heart sounds Gastrointestinal/Abdomen Exam: soft, tenderness (epigastric tenderness to palpation. No guarding no rebound.), No mass Back Exam: normal inspection, normal range of motion, No CVA tenderness, No radha tebral tenderness Extremity Exam: normal inspection, normal range of motion, pelvis stable Neurologic Exam: alert, oriented x 3, cooperative, normal mood/affect, nml cerebellar function, sensation nml, No motor deficits Skin Exam: normal color, warm, dry Lymphatic Exam: No adenopathy SpO2 Interpretation: normal SpO2: 97 O2 Delivery: Room Air - Course Nursing assessment & vital signs reviewed: Yes Ordered Tests: Active Orders 24 hr Category Date Time Status IV Insertion STAT Care 09/01/20 09:06 Active Oxygen-ED Only Nasal Cannula 2 lpm Care 09/01/20 09:24 Active ABDOMEN AND PELVIS W CONTRAST [CT] Stat Exams 09/01/20 09:07 Completed ACETAMINOPHEN Stat Lab 09/01/20 09:00 Completed CBC W DIFF Stat Lab 09/01/20 08:55 Completed CMP Stat Lab 09/01/20 08:55 Completed ETHYL ALCOHOL Stat Lab 09/01/20 09:00 Completed LIPASE Stat Lab 09/01/20 08:55 Completed SALICYLATE Stat Lab 09/01/20 09:00 Completed TROPONIN Q3H Lab 09/01/20 08:55 Completed TROPONIN Q3H Lab 09/01/20 12:15 Ordered TROPONIN Q3H Lab 09/01/20 15:15 Ordered TROPONIN Q3H Lab 09/01/20 18:15 Ordered TROPONIN Q3H Lab 09/01/20 21:15 Ordered UA W/RFX UR CULTURE Stat Lab 09/01/20 09:17 Completed Urine Triage Profile Stat Lab 09/01/20 11:27 Completed Medication Summary Generic Name Dose Route Start Last Admin Trade Name Freq PRN Reason Stop Dose Admin Dextrose/Sodium Chloride 1,000 mls @ 100 mls/hr 09/01/20 12:00 Dextrose 5% -0.45 Nacl 1000 Ml IV 10/01/20 11:59 .Q10H LESLY Discontinued Medications Generic Name Dose Route Start Last Admin Trade Name Freq PRN Reason Stop Dose Admin Sodium Chloride Confirm 09/01/20 08:55 Sodium Chloride 0.9% 1000 Ml Administered 09/01/20 08:56 Dose 1,000 mls @ ud .ROUTE .STK-MED ONE Sodium Chloride 1,000 mls @ 999 mls/hr 09/01/20 09:06 09/01/20 11:20 Sodium Chloride 0.9% 1000 Ml IV 09/01/20 10:06 Infused .Q1H1M STA Infusion Lorazepam Confirm 09/01/20 08:55 Ativan 2 Mg/1 Ml Vial Administered 09/01/20 08:56 Dose 2 mg .ROUTE .STK-MED ONE Lorazepam 1 mg 09/01/20 09:22 09/01/20 09:24 Ativan 2 Mg/1 Ml Vial IV 09/01/20 09:23 1 mg STAT ONE Administration Morphine Sulfate Confirm 09/01/20 08:55 Morphine Sulfate 2 Mg Inj Administered 09/01/20 08:56 Dose 2 mg .ROUTE .STK-MED ONE Morphine Sulfate 4 mg 09/01/20 09:06 09/01/20 09:19 Morphine Sulfate 4 Mg Inj IV 09/01/20 09:07 4 mg STAT ONE Administration Ondansetron HCl Confirm 09/01/20 08:54 Zofran 4 Mg/2 Ml Vial Administered 09/01/20 08:55 Dose 4 mg .ROUTE .STK-MED ONE Ondansetron HCl 4 mg 09/01/20 09:06 09/01/20 09:20 Zofran 4 Mg/2 Ml Vial IV 09/01/20 09:07 4 mg STAT ONE Administration Thiamine HCl 200 mg 09/01/20 11:49 Thiamine 200 Mg/2 Ml IV 09/01/20 11:50 STAT ONE Lab/Rad Data: Laboratory Result Diagrams 09/01/20 08:55 09/01/20 08:55 Laboratory Results 09/01/20 09/01/20 09/01/20 Range/Units 11:27 09:17 09:00 WBC (4.0-10.5) K/mm3 RBC (4.1-5.6) M/mm3 Hgb (12.5-18.0) gm/dl Hct (42-50) % MCV (78-100) fl MCH (26-32) pg MCHC (32-36) g/dl RDW (11.5-14.0) % Plt Count (150-450) K/mm3 MPV (7.5-11.0) fl Gran % (36.0-66.0) % Eos # (Auto) (0-0.5) Absolute Lymphs (auto) (1.0-4.6) Absolute Monos (auto) (0.0-1.3) Lymphocytes % (24.0-44.0) % Monocytes % (0.0-12.0) % Eosinophils % (0.00-5.0) % Basophils % (0.0-0.4) % Absolute Granulocytes (1.4-6.9) Basophils # (0-0.4) Sodium (137-145) mmol/L Potassium (3.5-5.1) mmol/L Chloride (98-107) mmol/L Carbon Dioxide (22-30) mmol/L Anion Gap (5-15) MEQ/L BUN (9-20) mg/dL Creatinine (0.66-1.25) mg/dL Estimated GFR ML/MIN Glucose (74-106) mg/dL Calcium (8.4-10.2) mg/dL Total Bilirubin (0.2-1.3) mg/dL AST (17-59) U/L ALT (0-50) U/L Alkaline Phosphatase (38-126) U/L Troponin I (0.000-0.034) ng/mL Serum Total Protein (6.3-8.2) g/dL Albumin (3.5-5.0) g/dL Lipase (23-300) U/L Urine Color YELLOW (YELLOW) Urine Appearance CLEAR (CLEAR) Urine pH 5.0 (5-6) Ur Specific Anita 1.020 (1.005-1.025) Urine Protein >=500 (Negative) Urine Ketones MODERATE (NEGATIVE) Urine Blood MODERATE (0-5) Henry/ul Urine Nitrite NEGATIVE (NEGATIVE) Urine Bilirubin NEGATIVE (NEGATIVE) Urine Urobilinogen NEGATIVE (0-1) mg/dL Ur Leukocyte Esterase NEGATIVE (NEGATIVE) Urine WBC (Auto) NONE (0-5) /HPF Urine RBC (Auto) NONE (0-2) /HPF U Hyaline Cast (Auto) 0-2 (0-2) /LPF U Epithel Cells (Auto) NONE (FEW) /HPF Urine Bacteria (Auto) NONE (NEGATIVE) /HPF Urine Culture Reflexed NO (NO) Urine Glucose 50 (NEGATIVE) mg/dL Salicylates < 1.0 L (2-20) mg/dL Urine Opiates Level NEGATIVE (NEGATIVE) Ur Methadone NEGATIVE (NEGATIVE) Acetaminophen < 10 L (10-30) ug/ml Urine Barbiturates NEGATIVE (NEGATIVE) Ur Phencyclidine (PCP) NEGATIVE (NEGATIVE) Urine Amphetamine NEGATIVE (NEGATIVE) U Benzodiazepine Level NEGATIVE (NEGATIVE) Urine Cocaine NEGATIVE (NEGATIVE) Urine Marijuana (THC) NEGATIVE (NEGATIVE) Ethyl Alcohol < 10 (0-10) mg/dL Slides for Path Review 09/01/20 09/01/20 09/01/20 Range/Units 08:55 08:55 08:55 WBC 7.1 (4.0-10.5) K/mm3 RBC 4.94 (4.1-5.6) M/mm3 Hgb 16.1 (12.5-18.0) gm/dl Hct 47.9 (42-50) % MCV 97.0 (78-100) fl MCH 32.6 H (26-32) pg MCHC 33.6 (32-36) g/dl RDW 12.6 (11.5-14.0) % Plt Count 73 L (150-450) K/mm3 MPV 10.1 (7.5-11.0) fl Gran % 88.3 H (36.0-66.0) % Eos # (Auto) 0 (0-0.5) Absolute Lymphs (auto) 0.46 L (1.0-4.6) Absolute Monos (auto) 0.36 (0.0-1.3) Lymphocytes % 6.4 L (24.0-44.0) % Monocytes % 5.0 (0.0-12.0) % Eosinophils % 0.0 (0.00-5.0) % Basophils % 0.3 (0.0-0.4) % Absolute Granulocytes 6.30 (1.4-6.9) Basophils # 0.02 (0-0.4) Sodium 139 (137-145) mmol/L Potassium 3.7 (3.5-5.1) mmol/L Chloride 90 L (98-107) mmol/L Carbon Dioxide 17 L (22-30) mmol/L Anion Gap 35.9 H (5-15) MEQ/L BUN 12 (9-20) mg/dL Creatinine 0.90 (0.66-1.25) mg/dL Estimated GFR > 60.0 ML/MIN Glucose 115 H (74-106) mg/dL Calcium 11.1 H (8.4-10.2) mg/dL Total Bilirubin 1.50 H (0.2-1.3) mg/dL AST 124 H (17-59) U/L ALT 71 H (0-50) U/L Alkaline Phosphatase 89 (38-126) U/L Troponin I < 0.012 (0.000-0.034) ng/mL Serum Total Protein 9.0 H (6.3-8.2) g/dL Albumin 6.0 H (3.5-5.0) g/dL Lipase 477 H (23-300) U/L Urine Color (YELLOW) Urine Appearance (CLEAR) Urine pH (5-6) Ur Specific Anita (1.005-1.025) Urine Protein (Negative) Urine Ketones (NEGATIVE) Urine Blood (0-5) Henry/ul Urine Nitrite (NEGATIVE) Urine Bilirubin (NEGATIVE) Urine Urobilinogen (0-1) mg/dL Ur Leukocyte Esterase (NEGATIVE) Urine WBC (Auto) (0-5) /HPF Urine RBC (Auto) (0-2) /HPF U Hyaline Cast (Auto) (0-2) /LPF U Epithel Cells (Auto) (FEW) /HPF Urine Bacteria (Auto) (NEGATIVE) /HPF Urine Culture Reflexed (NO) Urine Glucose (NEGATIVE) mg/dL Salicylates (2-20) mg/dL Urine Opiates Level (NEGATIVE) Ur Methadone (NEGATIVE) Acetaminophen (10-30) ug/ml Urine Barbiturates (NEGATIVE) Ur Phencyclidine (PCP) (NEGATIVE) Urine Amphetamine (NEGATIVE) U Benzodiazepine Level (NEGATIVE) Urine Cocaine (NEGATIVE) Urine Marijuana (THC) (NEGATIVE) Ethyl Alcohol (0-10) mg/dL Slides for Path Review YES - Progress Progress: improved Progress Note: Patient reassessed. Symptoms improved. Patient was found to have significant acidosis. He has an anion gap acidosis. This is likely alcoholic ketoacidosis. Patient received 200 mg of IV thiamine. Dextrose normal saline infusing. Case also Dr. Spann who requested we transfer the patient to [facility]. Case discussed with Dr. Borges hospitalist who accepts transfer. Plan of care discussed with patient. He agrees to transfer to [facility] for further evaluation and treatment. 09/01/20 11:50 Discussed with : Maribell Will see patient in: office Counseled pt/family regarding: drug and/or alcohol abuse, lab results, diagnosis, rad results - Departure Departure Disposition: Transfer Clinical Impression: Nausea and vomiting, Hiatal hernia, Hepatic steatosis, Proteinuria, Thrombocytopenia, High anion gap metabolic acidosis, Alcoholic ketoacidosis Condition: Stable Critical Care Time: No Referrals: MAVERICK SPANN MD [Primary Care Provider] -
--- NOTE | 2020-09-01 10:50 | XRAY ---
Exam: CT of the abdomen and pelvis with IV contrast from 09/01/2020. CTDI: 5.04 mGy Comparison: CT of the abdomen and pelvis with IV contrast from 08/01/2020. Indication: 30-year-old male with epigastric abdominal pain; vomiting. The patient gives a history of asthma. Technique: Post-IV contrast axial images were obtained through the abdomen and pelvis during automated injection of 80 ML's of nonionic Isovue-370 contrast material. No oral contrast was given. Reconstructed coronal and sagittal images were created and reviewed. Findings: The visualized lung bases appear clear. A mild sliding hiatal hernia is now evident. I again note moderate diffuse fatty infiltration throughout the liver (i.e. steatosis). No focal hepatic mass or intrahepatic biliary duct distention is seen. The gallbladder is distended and reveals a mucosal fold within its fundal aspect. No intraluminal calcifications or gallbladder wall thickening is appreciated by this exam. The spleen is of normal size and reveals no mass. The pancreas has a normal size and configuration without mass or abnormal peripancreatic inflammatory changes. No pancreatic duct distention is seen. The adrenal glands appear normal. Both kidneys function and appear of unremarkable size and shape. No renal mass, renal calculi, or hydronephrosis is seen. The abdominal aorta appears of normal diameter without evidence of aneurysm. No abnormal retroperitoneal lymphadenopathy is seen. There is no free intraperitoneal air or ventral abdominal wall hernia. There is a tiny protrusion of intraperitoneal fat into the subcutaneous fat at the level of the umbilicus on sagittal images #96 through #98. The appendix appears of normal diameter without periappendiceal inflammatory changes. I cannot exclude minimal contrast versus calcification within the distal appendiceal lumen. See coronal cuts #66, #68 and #69, and #73. Again, no adjacent inflammatory changes are seen. Mild scattered fecal residue is seen within the colon. I see no abnormal bowel distention or bowel wall thickening. The pelvis reveals no abnormal mass or pelvic lymphadenopathy. No urinary bladder stone is seen. The urinary bladder appears unremarkable on delayed images. The seminal vesicles and prostate gland appear normal. There are at least a couple surgical clips overlying the right groin. Correlate clinically regarding prior surgery. This is unchanged from 08/01/2020. No acute osseous process is seen. Impression: 1. At least a mild sized sliding hiatal hernia is seen on today's exam. Correlate clinically regarding GERD. 2. Moderate diffuse hepatic steatosis is again identified. 3. The appendix appears of normal diameter and reveals no periappendiceal inflammatory changes. Some minimal high attenuation density is seen within the distal appendiceal lumen. I'm not sure whether this represents residual oral contrast or small appendicoliths. Again, no inflammatory changes are seen. 4. The remainder of the CT of the abdomen and pelvis appears unremarkable.
[2020-09-01 11:16] LABS: Slide Review 1 YES
[2020-09-01 11:23] LABS: ACETAMINOPHEN < 10 ug/ml (10-30); ETHYL ALCOHOL < 10 mg/dL (0-10); SALICYLATE < 1.0 mg/dL (2-20)
[2020-09-01 11:34] LABS: Amphetamine,Urine NEGATIVE (NEGATIVE); Barbiturate,Urine NEGATIVE (NEGATIVE); Benzodiazepine,Urine NEGATIVE (NEGATIVE); Cocaine,Urine NEGATIVE (NEGATIVE); Methadone,Urine NEGATIVE (NEGATIVE); Opiate,Urine NEGATIVE (NEGATIVE); PCP,Urine NEGATIVE (NEGATIVE); THC,Urine NEGATIVE (NEGATIVE)
[2020-09-01] MEDS ORDERED: THIAMINE 200 MG/2 ML IV ONE (11:49)
[2020-09-01] MEDS ORDERED: Dextrose 5% -0.45 NaCl 1000 ML 1,000 ML IV SCH (12:00)
[2020-09-01] MEDS ORDERED: DEXTROSE 5% IV ONE (12:05)
[2020-09-01] MEDS ORDERED: THIAMINE 200 MG/2 ML ONE (12:05)
[2020-09-01] MEDS ORDERED: [UNRECOGNIZED DRUG - OTHER] IV ONE (12:05)
[2020-09-01] MEDS ORDERED: Dextrose 5% -0.45 NaCl 1000 ML 1,000 ML IV ONE (12:10)
--- NOTE | 2020-09-01 16:18 | XRAY ---
Exam: CT of the internal artery canals without IV contrast from 09/01/2020. CTDI: 36.84 mGy Comparison: CT of the head without IV contrast from 04/03/2019. Indication: Mastoiditis, unsteady gait in 30-year-old male. Technique: Non-IV contrast axial images were obtained through each temporal bone including the mastoids. Reconstructed coronal and sagittal images were created and reviewed. Some magnified coronal images were obtained of each temporal bone. Findings: The mastoid air cells appear clear without effusion, mass, or bone destruction. No erosions are seen. The middle ear cavities appear unremarkable and are symmetric. The internal auditory canals appear symmetric. Semicircular canals within the inner ears appear unremarkable. I see no abnormality of either external auditory canal. Some mild multifocal mucosal thickening is seen within the lower aspect of the left maxillary sinus, the posterior lateral aspect of the right ethmoid sinus, and the right sphenoid sinus. Scant mucosal thickening is seen at the lower medial margin of the right maxillary sinus. No other significant paranasal sinus opacification or air-fluid levels are seen. Impression: 1. I see no findings to suggest mastoiditis on either side. The mastoid air cells are clear without effusion. 2. Mild chronic paranasal sinus mucosal thickening is seen, as discussed above. No air-fluid levels are seen.
[2020-09-01 18:03] VITALS: BP 136/74; PULSE 88; O2SAT 96
== END 2020-09-01 17:40 | disposition short-term general hospital (02) ==
LOC: ED 08:37
DX: R11.2 Nausea with vomiting, unspecified (principal); R10.13 Epigastric pain; K44.9 Diaphragmatic hernia without obstruction or gangrene; K76.0 Fatty (change of) liver, not elsewhere classified; R80.9 Proteinuria, unspecified; D69.6 Thrombocytopenia, unspecified; E87.2 Acidosis; F10.10 Alcohol abuse, uncomplicated
CPT/HCPCS: 36000; 36415; 74177; 80053; 80307; 81001; 83690; 84484; 85025; 96360; 96374; 96375; 96376; 99285; G0480; 70480; J2060; J2270; J2405

== ENCOUNTER 2020-11-23 14:33 | Emergency (ER) | payer OTHER ==
[2020-11-23 14:57] VITALS: BP 154/106; PULSE 94; O2SAT 96
--- NOTE | 2020-11-23 15:25 | ERPHSYRPT ---
- History of Present Illness Time Seen by Provider: 11/23/20 15:22 Source: patient Exam Limitations: no limitations Patient Subjective Stated Complaint: pt here for chronic lower back pain, Triage Nursing Assessment: pt alert, resp easy, skin w/d/p. pt states he is unable to void well but denies any injury Physician History: Patient is 30-year-old male came to the emergency room with complaining of lower back pain lower abdominal pain constipation and unable to urinate off and on for last 5 to 7 days. Her symptoms got worse today so he came to the emergency room. He was seen in the physician's office and was treated with anti- inflammatory and muscle relaxer for his back pain. Severity: moderate Associated Symptoms: abdominal pain, other (back pain) Allergies/Adverse Reactions: No Known Drug Allergies Allergy (Verified 09/01/20 09:18) Home Medications: buprenorphine HCL [Buprenorphine HCl] 8 mg PO BID 08/01/20 [History] Hx Tetanus, Diphtheria Vaccination/Date Given: Yes Hx Influenza Vaccination/Date Given: No Hx Pneumococcal Vaccination/Date Given: No Immunizations Up to Date: Yes Travel Risk - International Travel Have you traveled outside of the country in past 3 weeks: No - Coronavirus Screening Are you exhibiting any of the following symptoms?: No Close contact with a COVID-19 positive Pt in past 14-21 Days: No - Vaccine Status Have you recieved a Covid-19 vaccination: No - Review of Systems Constitutional: No Fever, No Chills Eyes: No Symptoms Ears, Nose, & Throat: No Symptoms Respiratory: No Cough, No Dyspnea Cardiac: No Chest Pain, No Edema, No Syncope Abdominal/Gastrointestinal: Abdominal Pain, Constipation, No Nausea, No Vomiting, No Diarrhea Genitourinary Symptoms: No Dysuria Musculoskeletal: Back Pain, No Neck Pain, No Deformity, No Fall Skin: No Rash Neurological: No Dizziness, No Focal Weakness, No Sensory Changes Psychological: No Symptoms Endocrine: No Symptoms All Other Systems: Reviewed and Negative - Past Medical History Pertinent Past Medical History: Yes Neurological History: Seizures ENT History: No Pertinent History Cardiac History: No Pertinent History Respiratory History: No Pertinent History Endocrine Medical History: No Pertinent History Musculoskeletal History: No Pertinent History GI Medical History: Pancreatitis History: No Pertinent History Psycho-Social History: Anxiety, Depression Male Reproductive Disorders: No Pertinent History Other Medical History: 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 - Past Surgical History Past Surgical History: No Neuro Surgical History: No Pertinent History Cardiac: No Pertinent History Respiratory: No Pertinent History Gastrointestinal: No Pertinent History Genitourinary: No Pertinent History Musculoskeletal: No Pertinent History Male Surgical History: No Pertinent History - Social History Smoking Status: Current every day smoker How long have you smoked: 8 years Exposure to second hand smoke: No Alcohol Use: Chronic (since age 14l none for 3 days) Drug Use: none Patient Lives Alone: No Significant Family History: no pertinent family hx - Nursing Vital Signs Nursing Vital Signs: Initial Vital Signs Temperature 98.5 F 11/23/20 14:43 Pulse Rate 94 H 11/23/20 14:43 Respiratory Rate 18 11/23/20 14:43 Blood Pressure 154/106 11/23/20 14:43 O2 Sat by Pulse Oximetry 96 11/23/20 14:43 Pain Scale Pain Intensity [] 10 Pain Intensity 10 - Physical Exam General Appearance: no apparent distress Eye Exam: PERRL/EOMI, eyes nml inspection Ears, Nose, Throat Exam: normal ENT inspection, TMs normal, pharynx normal, moist mucous membranes Neck Exam: normal inspection, non-tender, supple, full range of motion Respiratory Exam: normal breath sounds, lungs clear, No respiratory distress Cardiovascular Exam: regular rate/rhythm, normal heart sounds, normal peripheral pulses Gastrointestinal/Abdomen Exam: soft, normal bowel sounds, No tenderness, No mass Back Exam: normal inspection, normal range of motion, No CVA tenderness, No vertebral tenderness Extremity Exam: normal inspection, normal range of motion, pelvis stable Neurologic Exam: alert, oriented x 3, cooperative, sensation nml, No motor deficits Skin Exam: normal color, warm, dry, No rash Lymphatic Exam: No adenopathy SpO2 Interpretation: normal SpO2: 96 O2 Delivery: Room Air - Course Nursing assessment & vital signs reviewed: Yes - Radiology Exams L-Spine X-ray Interpretation: Reviewed by me, Negative, No Fracture Abdomen X-ray Interpretation: Reviewed by me, Negative Ordered Tests: Active Orders 24 hr Category Date Time Status LUMBAR LIMITED (2 OR 3 VIEWS) Routine Exams 11/23/20 15:08 Taken OBSTR/ACUTE ABDOMEN SERIES Stat Exams 11/23/20 15:20 Taken CBC W DIFF Stat Lab 11/23/20 15:20 Completed CMP Stat Lab 11/23/20 15:20 Completed ETHYL ALCOHOL Stat Lab 11/23/20 15:20 Completed UA W/RFX UR CULTURE Stat Lab 11/23/20 14:51 Ordered Urine Triage Profile Stat Lab 11/23/20 14:51 Ordered Medication Summary Discontinued Medications Generic Name Dose Route Start Last Admin Trade Name Fritzq PRN Reason Stop Dose Admin Ketorolac Tromethamine 60 mg 11/23/20 15:29 11/23/20 15:42 Toradol 30 Mg Injection IM 11/23/20 15:30 60 mg STAT ONE Administration Ketorolac Tromethamine Confirm 11/23/20 15:38 Toradol 30 Mg Injection Administered 11/23/20 15:39 Dose 60 mg .ROUTE .STK-MED ONE Orphenadrine Citrate 60 mg 11/23/20 15:29 11/23/20 15:42 Norflex 60 Mg/2 Ml IM 11/23/20 15:30 60 mg STAT ONE Administration Orphenadrine Citrate Confirm 11/23/20 15:38 Norflex 60 Mg/2 Ml Administered 11/23/20 15:39 Dose 60 mg .ROUTE .STK-MED ONE Lab/Rad Data: Laboratory Result Diagrams 11/23/20 15:20 11/23/20 15:20 Laboratory Results 11/23/20 11/23/20 11/23/20 Range/Units 15:20 15:20 15:20 WBC 5.0 (4.0-10.5) K/mm3 RBC 4.61 (4.1-5.6) M/mm3 Hgb 15.7 (12.5-18.0) gm/dl Hct 44.6 (42-50) % MCV 96.7 (78-100) fl MCH 34.1 H (26-32) pg MCHC 35.2 (32-36) g/dl RDW 14.6 H (11.5-14.0) % Plt Count 24 L* (150-450) K/mm3 MPV 11.4 H (7.5-11.0) fl Gran % 77.2 H (36.0-66.0) % Eos # (Auto) 0.01 (0-0.5) Absolute Lymphs (auto) 0.60 L (1.0-4.6) Absolute Monos (auto) 0.50 (0.0-1.3) Lymphocytes % 12.1 L (24.0-44.0) % Monocytes % 10.1 (0.0-12.0) % Eosinophils % 0.2 (0.00-5.0) % Basophils % 0.4 (0.0-0.4) % Absolute Granulocytes 3.82 (1.4-6.9) Basophils # 0.02 (0-0.4) Sodium 141 (137-145) mmol/L Potassium 3.4 L (3.5-5.1) mmol/L Chloride 97 L (98-107) mmol/L Carbon Dioxide 28 (22-30) mmol/L Anion Gap 19.6 H (5-15) MEQ/L BUN 9 (9-20) mg/dL Creatinine 0.66 (0.66-1.25) mg/dL Estimated GFR > 60.0 ML/MIN Glucose 104 (74-106) mg/dL Calcium 9.7 (8.4-10.2) mg/dL Total Bilirubin 0.90 (0.2-1.3) mg/dL AST 123 H (17-59) U/L ALT 57 H (0-50) U/L Alkaline Phosphatase 69 (38-126) U/L Serum Total Protein 7.7 (6.3-8.2) g/dL Albumin 4.8 (3.5-5.0) g/dL Ethyl Alcohol 422 H (0-10) mg/dL Slides for Path Review YES - Progress Progress: improved, pain not gone completely Progress Note: 11/23/20 15:49 Patient platelet count is only 24,000. Last 6 visits in the emergency room were reviewed and at that time his platelet counts were in 30-60,000 range. This is the lowest platelet count noticed. Patient has a long history of alcohol abuse and it appears that patient is developing consumptive coagulopathy. Patient has been repeatedly advised in the past as well as today to stop drinking. Patient also has been put on Antabuse therapy but patient has been very noncompliant and has been drinking even with Antabuse therapy. Patient significant others are informed and they were also told to help patient to quit drinking alcohol. I personally also talked to the patient's at length and explained him what can be the future complication of continuously drinking alcohol which can cause him severe gastrointestinal bleeding which can lead to . Patient asked for all his lab results which were provided. Counseled pt/family regarding: drug and/or alcohol abuse, lab results, diagnosis, need for follow-up, rad results, smoking cessation - Departure Departure Disposition: Home Clinical Impression: Constipation by delayed colonic transit, Alcohol abuse, Thrombocytopenia, Alcohol-induced thrombocytopenia Lumbalgia Qualifiers: Chronicity: chronic Back pain laterality: midline Sciatica presence: without sciatica Qualified Code(s): M54.50 - Low back pain, unspecified Condition: Stable Critical Care Time: Yes Critical Care Time(excluding separately billable procedures): Critical 30-74 mins Referrals: MAVERICK SPANN MD [Primary Care Provider] - Instructions: Constipation, Adult (DC), Low Back Pain (DC), Sciatica (DC), Essential Thrombocythemia, Bleeding Precautions Additional Instructions: You are developing alcohol induced thrombocytopenia that means your platelet count in your blood is at dangerously low level which has been in last few months. It appears that it is because of your chronic alcohol abuse as well as alcoholic liver damage. You should seriously consider quitting alcohol otherwise it will cause you some serious complication including gastrointestinal bleeding. Patient significant other's were also informed about low platelet level and they were also advised that they should help him to quit alcohol. Discharge/Care Plan ROD SPARKS was seen on 11/23/20 in the Emergency Room. The patient was counseled regarding Diagnosis,Lab results, Imaging studies, need for follow up and when to return to the Emergency Room. Prescriptions given: Discharge Note I have spoken with the patient and/or caregivers. I have explained the patient's condition, diagnosis and treatment plan based on the information available to me at this time. I have answered the patient's and/or caregiver's questions and addressed any concerns. The patient and/or caregivers have as good understanding of the patient's diagnosis, condition and treatment plan as can be expected at this point. The vital signs have been stable. The patient's condition is stable and appropriate for discharge from the emergency department. The patient will pursue further outpatient evaluation with the primary care physician or other designated or consulting physician as outlined in the discharge instructions. The patient and/or caregivers are agreeable to this plan of care and follow-up instructions have been explained in detail. The patient and/or caregivers have received these instruction. The patient/and or caregivers are aware that any significant change in condition or worsening of symptoms should prompt an immediate return to this or the closest emergency department or call 911. ROD SPARKS was seen on 11/23/20 n the Emergency Room. At that time you were treated for an emergent condition, during your visit Laboratory, Radiology and/or other procedures may have been ordered. It is very important that you follow-up with your Primary Care Physician MAVERICK SPANN within the next 24-48 hours to review your Emergency Room visit and the final results of testing that was ordered. Some test results such as Urine Cultures, Blood Cultures, and other cultures if ordered will not be finalized for 24-48 hours. If you do not have a Primary Care Provider please call the medical records department at [phone] ext [phone] to obtain a copy of your results or you may sign into our patient portal to obtain these results by visiting us @ [email or web address] and completing the following steps: 1. Click on the Patient Portal link 2. Click the Patient Self Enrollment Link to complete the enrollment form and entering your 3. Once the enrollment form is completed you will receive an email with a temporary ID and password at the email address you provided. 4. Next choose a user name and password. Your user name must be at least 4 characters long and your password must be at least 4 characters long. 5. Choose a security question from the list and provide your answer to the question. If you already have signed into the Health Portal you may access your Health Care Information 13/09 by the following steps: 1. Login to our website @ [email or web address] 2. Enter your original user name and password. FAQS The [facility] Health Portal is an online tool that contains your Lab Results, Radiology Reports, Visit History, Discharge Instructions and Health Summary Lab and Radiology Results will not be available for 72 hours on the portal. The Portal is a secure site, passwords are encryted and URLs are re-written so they cannot be copied and pasted. You and authorized family members are the only ones who can access your Portal. Also there is a timeout feature that protects your information if you leave the Portal page open. If you have technical difficulty please use the Contact Us link on the page this will allow you to submit any questions you have regarding the Portal or you may contact the Medical Record Department at [phone] ext [phone]. Prescriptions: Cyclobenzaprine HCl 10 mg [Flexeril 10 MG] 10 mg PO TID #30 tablet
[2020-11-23] MEDS ORDERED: TORAdol 30 mg Injection IM ONE (15:29)
[2020-11-23] MEDS ORDERED: Norflex 60 MG/2 ML IM ONE (15:29)
[2020-11-23 15:31] LABS: Absolute Neutrophil Ct (ANC) 3.82 (1.4-6.9); BASOPHIL % 0.4 % (0.0-0.4); Basophil (Absolute #) 0.02 (0-0.4); Eosinophil % 0.2 % (0.00-5.0); Eosinophil (Absolute #) 0.01 (0-0.5); Hematocrit 44.6 % (42-50); Hemoglobin 15.7 gm/dl (12.5-18.0); Lymphocytes % 12.1 % (24.0-44.0); Mean Cell Volume 96.7 fl (78-100); Mean Corpuscular Hemoglobin 34.1 pg (26-32); Mean Corpuscular Hgb Concent. 35.2 g/dl (32-36); Mean Platelet Volume 11.4 fl (7.5-11.0); Monocytes % 10.1 % (0.0-12.0); Neutrophil % 77.2 % (36.0-66.0); Red Blood Count 4.61 M/mm3 (4.1-5.6); Red Cell Distribution Width 14.6 % (11.5-14.0)
[2020-11-23 15:37] LABS: Platelet Count 24 K/mm3 (150-450)
[2020-11-23] MEDS ORDERED: TORAdol 30 mg Injection ONE (15:38)
[2020-11-23] MEDS ORDERED: Norflex 60 MG/2 ML ONE (15:38)
[2020-11-23 15:41] LABS: ALBUMIN 4.8 g/dL (3.5-5.0); ALKALINE PHOSPHATASE 69 U/L (38-126); ANION GAP 19.6 MEQ/L (5-15); BLOOD UREA NITROGEN 9 mg/dL (9-20); CHLORIDE 97 mmol/L (98-107); Calcium 9.7 mg/dL (8.4-10.2); Carbon Dioxide 28 mmol/L (22-30); Creatinine 1 0.66 mg/dL (0.66-1.25); EST GLOMERULAR FILTRATION RATE > 60.0 ML/MIN; Glucose 104 mg/dL (74-106); Potassium 3.4 mmol/L (3.5-5.1); SGOT/AST 123 U/L (17-59); SGPT/ALT 57 U/L (0-50); SODIUM 141 mmol/L (137-145); Total Protein 7.7 g/dL (6.3-8.2)
[2020-11-23 15:59] LABS: Slide Review 1 YES
--- NOTE | 2020-11-23 21:34 | XRAY ---
Indication: Low back pain 2 weeks. No known injury. Comparison: None 3 view lumbar spine demonstrates 5 lumbar segments in normal alignment with vertebral body heights/disc spaces maintained. No bony, articular, or soft tissue abnormalities.
--- NOTE | 2020-11-23 21:37 | XRAY ---
Indication: Abdomen/pelvic pain. Possible UTI. Comparison: Chest exam June 14, 2020. 2 view abdomen nonacute and nonobstructed. Solid organs and osseous structures unremarkable. Single PA chest again demonstrates normal heart, lungs, and bony thorax with a few incidental tiny calcified granulomas. Impression: Negative abdomen. Stable nonacute PA chest.
== END 2020-11-23 16:10 | disposition home or self-care (01) ==
LOC: ED 14:33
DX: M54.50 Low back pain, unspecified (principal); K59.01 Slow transit constipation; D69.59 Other secondary thrombocytopenia; R10.9 Unspecified abdominal pain; R39.11 Hesitancy of micturition; F10.20 Alcohol dependence, uncomplicated; F17.200 Nicotine dependence, unspecified, uncomplicated
CPT/HCPCS: 36415; 72100; 74022; 80053; 85025; 96372; 99284; 99291; G0480; 80307; J1885; J2360

== ENCOUNTER 2020-12-04 01:26 | Emergency (ER) | payer OTHER ==
[2020-12-04] MEDS ORDERED: Ativan 2 MG/1 ML VIAL IV ONE ×2 (02:13→06:39)
[2020-12-04] MEDS ORDERED: Sodium Chloride 0.9% 1000 ML 1,000 ML IV STA ×2 (02:13→04:18)
[2020-12-04] MEDS ORDERED: Zofran 4 MG/2 ML VIAL IV ONE (02:13)
[2020-12-04] MEDS ORDERED: PROTONIX 40 MG IV IV ONE ×2 (02:15→02:33)
[2020-12-04] MEDS ORDERED: MORPHINE SULFATE 4 MG INJ IV ONE (02:15)
[2020-12-04] MEDS ORDERED: Keppra 500 MG/5 ML*** 1,000 MG in D5w 100ML Mini Bag 100 ML 100 ML IV ONE (02:16)
--- NOTE | 2020-12-04 02:22 | ERPHSYRPT ---
- History of Present Illness Patient Subjective Stated Complaint: Patient's girlfriend states "he is a daily drinker and he hasn't been able to to drink today because he hasn't been able to hold anything down R/T vomiting and now he is having withdrawals." Triage Nursing Assessment: Patient was sitting in W/C in waiting room and upon RN bringing Timing/Duration: today, constant, gradual onset, worse Activities at Onset: rest Quality: dullness, sharpness Abdominal Pain Onset Location: epigastric, periumbilical Pain Radiation: back Severity of Pain-Max: moderate Severity of Pain-Current: moderate Modifying Factors: Worsens With: vomiting Associated Symptoms: back, fatigue, heartburn, nausea, vomiting, weakness Previous symptoms: same symptoms as today Hx Tetanus, Diphtheria Vaccination/Date Given: No Hx Influenza Vaccination/Date Given: No Hx Pneumococcal Vaccination/Date Given: No Immunizations Up to Date: Yes - History of Present Illness Time Seen by Provider: 12/04/20 02:13 Physician History: 30 years old male with history of heavy alcohol abuse, chronic pancreatitis, chronic pain syndrome on Suboxone, history of alcohol-related problems with seizures on Keppra presented in the ER with chief complaint of upper abdominal pain with associated increasing nausea and multiple episodes of nonprojectile, nonbilious vomiting since 1 PM yesterday. Patient is unable to hold anything down including alcohol and medications. Is feeling weak fatigued and tired. Because of repeated vomiting having pain in the low back as well. Whenever patient has alcohol withdrawals, does have good seizure and was noticed 1 prior to arrival. Did not hit his head. No fever, sick contact reported (ELEONORA DEXTER) Allergies/Adverse Reactions: No Known Drug Allergies Allergy (Verified 12/04/20 01:46) Home Medications: buprenorphine HCL [Buprenorphine HCl] 8 mg PO BID 08/01/20 [History] Travel Risk - International Travel Have you traveled outside of the country in past 3 weeks: No - Coronavirus Screening Are you exhibiting any of the following symptoms?: Yes Symptoms: Vomiting/Diarrhea Close contact with a COVID-19 positive Pt in past 14-21 Days: No - Vaccine Status Have you recieved a Covid-19 vaccination: No - Review of Systems Constitutional: Fatigue, Weakness Eyes: No Symptoms Ears, Nose, & Throat: No Symptoms Respiratory: No Symptoms Cardiac: No Symptoms Abdominal/Gastrointestinal: Abdominal Pain, Nausea, Vomiting, Constipation Genitourinary Symptoms: No Symptoms Musculoskeletal: Back Pain Skin: No Symptoms Neurological: Seizure, Tremors Psychological: Alcohol Abuse Endocrine: No Symptoms Hematologic/Lymphatic: No Symptoms Immunological/Allergic: No Symptoms - Past Medical History Pertinent Past Medical History: Yes Neurological History: Seizures ENT History: No Pertinent History Cardiac History: No Pertinent History Respiratory History: No Pertinent History Endocrine Medical History: No Pertinent History Musculoskeletal History: No Pertinent History GI Medical History: Pancreatitis History: No Pertinent History Psycho-Social History: Anxiety, Depression Male Reproductive Disorders: No Pertinent History Other Medical History: 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 - Past Surgical History Past Surgical History: No Neuro Surgical History: No Pertinent History Cardiac: No Pertinent History Respiratory: No Pertinent History Gastrointestinal: No Pertinent History Genitourinary: No Pertinent History Musculoskeletal: No Pertinent History Male Surgical History: No Pertinent History - Social History Smoking Status: Current every day smoker How long have you smoked: 10 years Exposure to second hand smoke: Yes Alcohol Use: Chronic (since age 14l none for 3 days) Drug Use: none Patient Lives Alone: No Significant Family History: no pertinent family hx - Physical Exam General Appearance: no apparent distress, alert, anxiety Eye Exam: PERRL/EOMI, eyes nml inspection Ears, Nose, Throat Exam: normal ENT inspection, pharyngeal erythema Neck Exam: normal inspection, full range of motion Respiratory Exam: normal breath sounds, lungs clear Cardiovascular Exam: normal heart sounds, tachycardia Gastrointestinal/Abdomen Exam: soft, normal bowel sounds, tenderness (Upper abdomen with some guarding) Back Exam: normal inspection, normal range of motion Extremity Exam: normal inspection, normal range of motion Neurologic Exam: alert, oriented x 3, cooperative, field tech II-XII nml as tested, No normal mood/affect (Anxious), No motor deficits Skin Exam: normal color SpO2 Interpretation: normal SpO2: 96 O2 Delivery: Room Air - Nursing Vital Signs Nursing Vital Signs: Initial Vital Signs Temperature 98.0 F 12/04/20 01:50 Pulse Rate 122 H 12/04/20 01:50 Respiratory Rate 24 12/04/20 01:50 Blood Pressure 158/95 12/04/20 01:50 O2 Sat by Pulse Oximetry 96 12/04/20 01:50 Pain Scale Pain Intensity 0 - Course EKG Interpreted by Me: RATE (126), Sinus Tach, Left [place] Deviation Ordered Tests: Medication Summary Discontinued Medications Generic Name Dose Route Start Last Admin Trade Name Collin PRN Reason Stop Dose Admin Levetiracetam 1,000 mg/ 110 mls @ 220 mls/hr 12/04/20 02:16 12/04/20 02:43 Dextrose IV 12/04/20 02:45 220 mls/hr STAT ONE Administration Sodium Chloride 1,000 mls @ 999 mls/hr 12/04/20 02:13 12/04/20 05:28 Sodium Chloride 0.9% 1000 Ml IV 12/04/20 03:13 Infused .Q1H1M STA Infusion Sodium Chloride Confirm 12/04/20 02:33 Sodium Chloride 0.9% 1000 Ml Administered 12/04/20 02:34 Dose 1,000 mls @ ud .ROUTE .STK-MED ONE Dextrose Confirm 12/04/20 02:34 D5w 100ml Mini Bag 100 Ml Administered 12/04/20 02:35 Dose 100 mls @ ud IV .STK-MED ONE Sodium Chloride 1,000 mls @ 999 mls/hr 12/04/20 04:18 12/04/20 05:29 Sodium Chloride 0.9% 1000 Ml IV 12/04/20 05:18 Infused .Q1H1M STA Infusion Sodium Chloride Confirm 12/04/20 04:19 Sodium Chloride 0.9% 1000 Ml Administered 12/04/20 04:20 Dose 1,000 mls @ ud .ROUTE .STK-MED ONE Potassium Chloride 20 meq in 100 mls @ 50 mls/hr 12/04/20 04:45 12/04/20 06:30 Potassium Chloride 20 Meq In Water 100ml IV 12/04/20 08:44 50 mls/hr Q2H LESLY Administration Sodium Chloride 1,000 mls @ 100 mls/hr 12/04/20 05:30 12/04/20 15:45 Sodium Chloride 0.9% 1000 Ml IV 01/03/21 05:29 Infused .Q10H LESLY Infusion Potassium Chloride Confirm 12/04/20 04:39 Potassium Chloride 20 Meq In Water 100ml Administered 12/04/20 04:40 Dose 100 mls @ ud IV .STK-MED ONE Potassium Chloride Confirm 12/04/20 06:25 Potassium Chloride 20 Meq In Water 100ml Administered 12/04/20 06:26 Dose 100 mls @ ud IV .STK-MED ONE Levetiracetam Confirm 12/04/20 02:33 Levetiracetam 500 Mg/5 Ml Vial Administered 12/04/20 02:34 Dose 1,000 mg .ROUTE .STK-MED ONE Lorazepam 2 mg 12/04/20 02:13 12/04/20 02:43 Lorazepam 2 Mg/1 Ml 2 Mg Vial IV 12/04/20 02:14 2 mg STAT ONE Administration Lorazepam Confirm 12/04/20 02:33 Lorazepam 2 Mg/1 Ml 2 Mg Vial Administered 12/04/20 02:34 Dose 2 mg .ROUTE .STK-MED ONE Lorazepam Confirm 12/04/20 04:39 Lorazepam 2 Mg/1 Ml 2 Mg Vial Administered 12/04/20 04:40 Dose 2 mg .ROUTE .STK-MED ONE Lorazepam 2 mg 12/04/20 06:39 12/04/20 04:42 Lorazepam 2 Mg/1 Ml 2 Mg Vial IV 12/04/20 06:40 2 mg STAT ONE Administration Morphine Sulfate 4 mg 12/04/20 02:15 12/04/20 02:43 Morphine Sulfate 4 Mg/Ml Injection IV 12/04/20 02:16 4 mg STAT ONE Administration Morphine Sulfate Confirm 12/04/20 02:33 Morphine Sulfate 4 Mg/Ml Injection Administered 12/04/20 02:34 Dose 4 mg .ROUTE .STK-MED ONE Ondansetron HCl 4 mg 12/04/20 02:13 12/04/20 02:43 Ondansetron Hcl 4 Mg/2 Ml Vial IV 12/04/20 02:14 4 mg STAT ONE Administration Ondansetron HCl Confirm 12/04/20 02:32 Ondansetron Hcl 4 Mg/2 Ml Vial Administered 12/04/20 02:33 Dose 4 mg .ROUTE .STK-MED ONE Pantoprazole Sodium 40 mg 12/04/20 02:15 12/04/20 02:43 Pantoprazole 40 Mg Vial IV 12/04/20 02:16 40 mg STAT ONE Administration Pantoprazole Sodium Confirm 12/04/20 02:33 Pantoprazole 40 Mg Vial Administered 12/04/20 02:34 Dose 40 mg IV .STK-MED ONE Lab/Rad Data: Laboratory Result Diagrams 12/04/20 02:31 12/04/20 02:31 Laboratory Results 12/04/20 12/04/20 12/04/20 Range/Units 14:35 11:06 08:16 WBC (4.0-10.5) K/mm3 RBC (4.1-5.6) M/mm3 Hgb (12.5-18.0) gm/dl Hct (42-50) % MCV (78-100) fl MCH (26-32) pg MCHC (32-36) g/dl RDW (11.5-14.0) % Plt Count (150-450) K/mm3 MPV (7.5-11.0) fl Gran % (36.0-66.0) % Eos # (Auto) (0-0.5) Absolute Lymphs (auto) (1.0-4.6) Absolute Monos (auto) (0.0-1.3) Lymphocytes % (24.0-44.0) % Monocytes % (0.0-12.0) % Eosinophils % (0.00-5.0) % Basophils % (0.0-0.4) % Absolute Granulocytes (1.4-6.9) Basophils # (0-0.4) Sodium (137-145) mmol/L Potassium (3.5-5.1) mmol/L Chloride (98-107) mmol/L Carbon Dioxide (22-30) mmol/L Anion Gap (5-15) MEQ/L BUN (9-20) mg/dL Creatinine (0.66-1.25) mg/dL Estimated GFR ML/MIN Glucose (74-106) mg/dL Calcium (8.4-10.2) mg/dL Magnesium (1.6-2.3) mg/dL Total Bilirubin (0.2-1.3) mg/dL AST (17-59) U/L ALT (0-50) U/L Alkaline Phosphatase (38-126) U/L Troponin I 0.322 H* 0.541 H* 0.660 H* (0.000-0.034) ng/mL Serum Total Protein (6.3-8.2) g/dL Albumin (3.5-5.0) g/dL Lipase (23-300) U/L Urine Color (YELLOW) Urine Appearance (CLEAR) Urine pH (5-6) Ur Specific [place] (1.005-1.025) Urine Protein (Negative) Urine Ketones (NEGATIVE) Urine Blood (0-5) Henry/ul Urine Nitrite (NEGATIVE) Urine Bilirubin (NEGATIVE) Urine Urobilinogen (0-1) mg/dL Ur Leukocyte Esterase (NEGATIVE) Urine WBC (Auto) (0-5) /HPF Urine RBC (Auto) (0-2) /HPF Urine Mucus (Auto) (NEGATIVE) /HPF Urine Culture Reflexed (NO) Urine Glucose (NEGATIVE) mg/dL Ethyl Alcohol (0-10) mg/dL SARS-CoV-2 (PCR) (NEGATIVE) Slides for Path Review 12/04/20 12/04/20 12/04/20 Range/Units 06:46 05:32 04:35 WBC (4.0-10.5) K/mm3 RBC (4.1-5.6) M/mm3 Hgb (12.5-18.0) gm/dl Hct (42-50) % MCV (78-100) fl MCH (26-32) pg MCHC (32-36) g/dl RDW (11.5-14.0) % Plt Count (150-450) K/mm3 MPV (7.5-11.0) fl Gran % (36.0-66.0) % Eos # (Auto) (0-0.5) Absolute Lymphs (auto) (1.0-4.6) Absolute Monos (auto) (0.0-1.3) Lymphocytes % (24.0-44.0) % Monocytes % (0.0-12.0) % Eosinophils % (0.00-5.0) % Basophils % (0.0-0.4) % Absolute Granulocytes (1.4-6.9) Basophils # (0-0.4) Sodium (137-145) mmol/L Potassium (3.5-5.1) mmol/L Chloride (98-107) mmol/L Carbon Dioxide (22-30) mmol/L Anion Gap (5-15) MEQ/L BUN (9-20) mg/dL Creatinine (0.66-1.25) mg/dL Estimated GFR ML/MIN Glucose (74-106) mg/dL Calcium (8.4-10.2) mg/dL Magnesium (1.6-2.3) mg/dL Total Bilirubin (0.2-1.3) mg/dL AST (17-59) U/L ALT (0-50) U/L Alkaline Phosphatase (38-126) U/L Troponin I 0.489 H* (0.000-0.034) ng/mL Serum Total Protein (6.3-8.2) g/dL Albumin (3.5-5.0) g/dL Lipase (23-300) U/L Urine Color YELLOW (YELLOW) Urine Appearance CLEAR (CLEAR) Urine pH 6.0 (5-6) Ur Specific [place] 1.043 (1.005-1.025) Urine Protein >=500 (Negative) Urine Ketones MODERATE (NEGATIVE) Urine Blood MODERATE (0-5) Henry/ul Urine Nitrite NEGATIVE (NEGATIVE) Urine Bilirubin NEGATIVE (NEGATIVE) Urine Urobilinogen NEGATIVE (0-1) mg/dL Ur Leukocyte Esterase NEGATIVE (NEGATIVE) Urine WBC (Auto) 3-5 (0-5) /HPF Urine RBC (Auto) 6-10 (0-2) /HPF Urine Mucus (Auto) SLIGHT (NEGATIVE) /HPF Urine Culture Reflexed NO (NO) Urine Glucose NEGATIVE (NEGATIVE) mg/dL Ethyl Alcohol (0-10) mg/dL SARS-CoV-2 (PCR) NEGATIVE (NEGATIVE) Slides for Path Review 12/04/20 12/04/20 12/04/20 Range/Units 02:31 02:31 02:31 WBC 6.5 (4.0-10.5) K/mm3 RBC 4.92 (4.1-5.6) M/mm3 Hgb 16.7 (12.5-18.0) gm/dl Hct 49.6 (42-50) % MCV 100.8 H (78-100) fl MCH 33.9 H (26-32) pg MCHC 33.7 (32-36) g/dl RDW 15.0 H (11.5-14.0) % Plt Count 46 L (150-450) K/mm3 MPV 9.2 (7.5-11.0) fl Gran % 82.0 H (36.0-66.0) % Eos # (Auto) 0.01 (0-0.5) Absolute Lymphs (auto) 0.53 L (1.0-4.6) Absolute Monos (auto) 0.59 (0.0-1.3) Lymphocytes % 8.1 L (24.0-44.0) % Monocytes % 9.1 (0.0-12.0) % Eosinophils % 0.2 (0.00-5.0) % Basophils % 0.6 (0.0-0.4) % Absolute Granulocytes 5.34 (1.4-6.9) Basophils # 0.04 (0-0.4) Sodium 141 (137-145) mmol/L Potassium 3.0 L* (3.5-5.1) mmol/L Chloride 94 L (98-107) mmol/L Carbon Dioxide 11 L* (22-30) mmol/L Anion Gap 38.2 H (5-15) MEQ/L BUN 10 (9-20) mg/dL Creatinine 0.77 (0.66-1.25) mg/dL Estimated GFR > 60.0 ML/MIN Glucose 115 H (74-106) mg/dL Calcium 10.3 H (8.4-10.2) mg/dL Magnesium 1.7 (1.6-2.3) mg/dL Total Bilirubin 1.10 (0.2-1.3) mg/dL AST 131 H (17-59) U/L ALT 81 H (0-50) U/L Alkaline Phosphatase 87 (38-126) U/L Troponin I 0.057 H* (0.000-0.034) ng/mL Serum Total Protein 8.3 H (6.3-8.2) g/dL Albumin 5.4 H (3.5-5.0) g/dL Lipase 1269 H (23-300) U/L Urine Color (YELLOW) Urine Appearance (CLEAR) Urine pH (5-6) Ur Specific [place] (1.005-1.025) Urine Protein (Negative) Urine Ketones (NEGATIVE) Urine Blood (0-5) Henry/ul Urine Nitrite (NEGATIVE) Urine Bilirubin (NEGATIVE) Urine Urobilinogen (0-1) mg/dL Ur Leukocyte Esterase (NEGATIVE) Urine WBC (Auto) (0-5) /HPF Urine RBC (Auto) (0-2) /HPF Urine Mucus (Auto) (NEGATIVE) /HPF Urine Culture Reflexed (NO) Urine Glucose (NEGATIVE) mg/dL Ethyl Alcohol 73 H (0-10) mg/dL SARS-CoV-2 (PCR) (NEGATIVE) Slides for Path Review YES - Progress Progress: improved Will see patient in: hospital (observation) Counseled pt/family regarding: lab results, diagnosis, rad results - Progress Progress Note: Patient was admitted to Dr. Barton. Patient was admitted prior to Dr. Camp arrival. However while in the ER we were awaiting bed assignment and observe that patient's troponin was gradually increasing. Dr. Barton then declined admission. And on Dr. Barton's behalf Dr. Camp endorsed patient to Dr. Montana at [facility]. Dr. Montana accepts transfer. 12/04/20 11:27 (KG CAMP) 12/04/20 06:37 30 years old with history of alcohol abuse is evaluated for worsening upper abdominal pain with vomiting. Patient has tremor and seems to be going into wi thdrawals as patient is a heavy alcohol user. Given Ativan. EKG showed sinus tach without any ST elevation but has mildly elevated troponin 0.05. Chemistry profile showed hypokalemia and is getting replacement. Does have pancreatitis. We will continue with IV fluids. Discussed with Dr. Barton, reviewed history work-up and patient is accepted for admission. (ELEONORA DEXTER) - Departure Departure Disposition: Transfer Critical Care Time: Yes Critical Care Time(excluding separately billable procedures): Critical 30-74 mins - Departure Clinical Impression: Hypokalemia, Thrombocytopenia, High anion gap metabolic acidosis, Chronic pancreatitis, Alcohol withdrawal, Elevated troponin Condition: Fair Referrals: MAVERICK SPANN MD [Primary Care Provider] -
[2020-12-04] MEDS ORDERED: Zofran 4 MG/2 ML VIAL ONE (02:32)
[2020-12-04] MEDS ORDERED: Ativan 2 MG/1 ML VIAL ONE ×2 (02:33→04:39)
[2020-12-04] MEDS ORDERED: Sodium Chloride 0.9% 1000 ML 1,000 ML ONE ×2 (02:33→04:19)
[2020-12-04] MEDS ORDERED: Keppra 500 MG/5 ML ONE (02:33)
[2020-12-04] MEDS ORDERED: MORPHINE SULFATE 4 MG INJ ONE (02:33)
[2020-12-04] MEDS ORDERED: D5w 100ML Mini Bag 100 ML 100 ML IV ONE (02:34)
[2020-12-04 02:42] LABS: Absolute Neutrophil Ct (ANC) 5.34 (1.4-6.9); BASOPHIL % 0.6 % (0.0-0.4); Basophil (Absolute #) 0.04 (0-0.4); Eosinophil % 0.2 % (0.00-5.0); Eosinophil (Absolute #) 0.01 (0-0.5); Hematocrit 49.6 % (42-50); Hemoglobin 16.7 gm/dl (12.5-18.0); Lymphocyte (Absolute #) 0.53 (1.0-4.6); Lymphocytes % 8.1 % (24.0-44.0); Mean Cell Volume 100.8 fl (78-100); Mean Corpuscular Hemoglobin 33.9 pg (26-32); Mean Corpuscular Hgb Concent. 33.7 g/dl (32-36); Mean Platelet Volume 9.2 fl (7.5-11.0); Monocyte (Absolute #) 0.59 (0.0-1.3); Monocytes % 9.1 % (0.0-12.0); Platelet Count 46 K/mm3 (150-450); Red Blood Count 4.92 M/mm3 (4.1-5.6); White Blood Count 6.5 K/mm3 (4.0-10.5)
[2020-12-04 02:45] LABS: ALBUMIN 5.4 g/dL (3.5-5.0); ALKALINE PHOSPHATASE 87 U/L (38-126); ANION GAP 38.2 MEQ/L (5-15); BLOOD UREA NITROGEN 10 mg/dL (9-20); CHLORIDE 94 mmol/L (98-107); Calcium 10.3 mg/dL (8.4-10.2); Creatinine 1 0.77 mg/dL (0.66-1.25); EST GLOMERULAR FILTRATION RATE > 60.0 ML/MIN; ETHYL ALCOHOL 73 mg/dL (0-10); Glucose 115 mg/dL (74-106); LIPASE 1269 U/L (23-300); MAGNESIUM 1.7 mg/dL (1.6-2.3); SGOT/AST 131 U/L (17-59); SGPT/ALT 81 U/L (0-50); SODIUM 141 mmol/L (137-145); Total Protein 8.3 g/dL (6.3-8.2)
[2020-12-04 02:48] LABS: Carbon Dioxide 11 mmol/L (22-30)
[2020-12-04] MEDS ORDERED: POTASSIUM CHLORIDE 20 mEq IN WATER 100ML 100 ML IV ONE ×2 (04:39→06:25)
[2020-12-04] MEDS: POTASSIUM CHLORIDE 20 mEq IN WATER 100ML 20 MEQ/100 ML BAG IV SCH ×2 (04:42→06:30)
[2020-12-04 04:51] LABS: Slide Review 1 YES
[2020-12-04 05:16] LABS: Appearance CLEAR (CLEAR); Bilirubin NEGATIVE (NEGATIVE); Blood MODERATE Ery/ul (0-5); Glucose NEGATIVE (NEGATIVE); Ketones MODERATE (NEGATIVE); Leukocyte Esterase NEGATIVE (NEGATIVE); Mucus SLIGHT /HPF (NEGATIVE); Nitrite NEGATIVE (NEGATIVE); Protein,Urine Dip >=500 (Negative); Specific Gravity 1.043 (1.005-1.025); Urobilinogen NEGATIVE mg/dL (0-1)
[2020-12-04] MEDS ORDERED: Sodium Chloride 0.9% 1000 ML 1,000 ML IV SCH (05:30)
--- NOTE | 2020-12-04 08:58 | XRAY ---
Indication: Abdomen pain and vomiting. Elevated lipase. Alcohol withdrawal. Multiple contiguous axial images obtained through the abdomen and pelvis using 80 cc Isovue 370 contrast. Comparison: September 01, 2020. Lung bases remain clear. Heart not enlarged. Noncontrasted stomach and bowel loops appear nonobstructed. Normal appendix. Again diffuse fatty cardiomegaly measuring 20.3 cm. No free fluid/air. Remaining liver, gallbladder, pancreas, spleen, adrenal glands, kidneys, ureters, bladder, uterus, and aorta appear unremarkable. No pathologic retroperitoneal lymphadenopathy. Osseous structures intact. Impression: 1. Again fatty hepatomegaly. 2. Remaining CT abdomen/pelvis with contrast exam is negative. Comment: Preliminary interpretation made by [facility]. No critical discrepancy.
--- NOTE | 2020-12-04 08:58 | XRAY ---
Indication: Abdomen pain and vomiting. Alcohol withdrawal. Elevated troponin. Comparison: June 14, 2020. Portable chest again demonstrates normal heart, lungs, and bony thorax. Comment: Preliminary interpretation made by C. No critical discrepancy.
[2020-12-04 15:42] VITALS: BP 124/94; PULSE 85; O2SAT 96
== END 2020-12-04 16:38 | disposition short-term general hospital (02) ==
LOC: ED 01:26
DX: E87.6 Hypokalemia (principal); D69.6 Thrombocytopenia, unspecified; E87.2 Acidosis; K86.1 Other chronic pancreatitis; F10.239 Alcohol dependence with withdrawal, unspecified; R77.8 Other specified abnormalities of plasma proteins
CPT/HCPCS: 36000; 36415; 71045; 74177; 80053; 81001; 83690; 83735; 84484; 85025; 96360; 96361; 96374; 96375; 96376; 99285; 99291; G0480; U0003; 80307; J1953; J2060; J2270; J2405; J3480

== ENCOUNTER 2024-03-06 10:26 | Emergency (ER) | payer BC ==
[2024-03-06 10:52] VITALS: RESP 18; TEMP 97.4; O2SAT 99
[2024-03-06] MEDS ORDERED: Zofran 4 MG/2 ML VIAL ONE (11:10)
[2024-03-06] MEDS ORDERED: Sodium Chloride 0.9% 1000 ML 1,000 ML ONE (11:10)
--- NOTE | 2024-03-06 11:10 | ERPHSYRPT ---
- History of Present Illness Time Seen by Provider: 03/06/24 11:06 Source: patient Physician History: 33-year-old male presents to emergency department for evaluation of nausea and vomiting. Patient reports his nausea and vomiting has been ongoing for over a month. Patient followed up with his primary care doctor who ordered a CT abdomen pelvis and CT chest with contrast. Studies were performed on February 28 just [address] chest shows nonobstructing left renal punctate calculus fatty liver and old granulomatous disease otherwise negative. CT abdomen pelvis shows incidental old granulomatous disease otherwise no acute findings. Patient currently on Protonix. Patient took 40 mg of Protonix orally prior to arrival. Patient otherwise feels well. No chest pain no shortness of breath. Patient voices no other complaints or concerns at this time. Portions of this note were created with voice recognition technology. There may be grammatical, spelling, punctuation or sound alike errors Timing/Duration: today, week(s) Severity: moderate Modifying Factors: Improves With: nothing Allergies/Adverse Reactions: No Known Drug Allergies Allergy (Verified 12/04/20 01:46) Home Medications: buprenorphine HCL [Buprenorphine HCl] 8 mg PO BID 08/01/20 [History] Hx Tetanus, Diphtheria Vaccination/Date Given: No Hx Influenza Vaccination/Date Given: No Hx Pneumococcal Vaccination/Date Given: No - Review of Systems Constitutional: No Symptoms, No Fever, No Chills Eyes: No Symptoms Ears, Nose, & Throat: No Symptoms Respiratory: No Symptoms, No Cough, No Dyspnea Cardiac: No Symptoms, No Chest Pain, No Edema, No Syncope Abdominal/Gastrointestinal: No Symptoms, No Abdominal Pain, No Nausea, No Vomiting, No Diarrhea Genitourinary Symptoms: No Symptoms, No Dysuria Musculoskeletal: No Symptoms, No Back Pain, No Neck Pain Skin: No Symptoms, No Rash Neurological: No Symptoms, No Dizziness, No Focal Weakness, No Sensory Changes Psychological: No Symptoms Endocrine: No Symptoms Hematologic/Lymphatic: No Symptoms Immunological/Allergic: No Symptoms All Other Systems: Reviewed and Negative - Past Medical History Pertinent Past Medical History: Yes Neurological History: Seizures ENT History: No Pertinent History Cardiac History: No Pertinent History Respiratory History: No Pertinent History Endocrine Medical History: No Pertinent History Musculoskeletal History: No Pertinent History GI Medical History: Pancreatitis History: No Pertinent History Psycho-Social History: Anxiety, Depression Male Reproductive Disorders: No Pertinent History Other Medical History: 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, 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 - Past Surgical History Past Surgical History: No Neuro Surgical History: No Pertinent History Cardiac: No Pertinent History Respiratory: No Pertinent History Gastrointestinal: No Pertinent History Genitourinary: No Pertinent History Musculoskeletal: No Pertinent History Male Surgical History: No Pertinent History Significant Family History: no pertinent family hx - Social History Smoking Status: Current every day smoker How long have you smoked: 10 years Exposure to second hand smoke: Yes Alcohol Use: Chronic (since age 14l none for 3 days) Drug Use: none Patient Lives Alone: No - Nursing Vital Signs Nursing Vital Signs: Initial Vital Signs Temperature 97.4 F 03/06/24 10:26 Pulse Rate 55 L 03/06/24 10:26 Respiratory Rate 18 03/06/24 10:26 Blood Pressure 138/90 03/06/24 10:26 O2 Sat by Pulse Oximetry 99 03/06/24 10:26 Pain Scale Pain Intensity 4 - Physical Exam General Appearance: no apparent distress, alert Eye Exam: PERRL/EOMI, eyes nml inspection Ears, Nose, Throat Exam: normal ENT inspection, TMs normal, pharynx normal, moist mucous membranes Neck Exam: normal inspection, non-tender, supple, full range of motion Respiratory Exam: normal breath sounds, lungs clear, No respiratory distress Cardiovascular Exam: regular rate/rhythm, normal heart sounds, normal peripheral pulses Gastrointestinal/Abdomen Exam: soft, normal bowel sounds, No tenderness, No mass Back Exam: normal inspection, normal range of motion, No CVA tenderness, No vertebral tenderness Extremity Exam: normal inspection, normal range of motion, pelvis stable Neurologic Exam: alert, oriented x 3, cooperative, normal mood/affect, sensation nml, No motor deficits Skin Exam: normal color, warm, dry, No rash Lymphatic Exam: No adenopathy SpO2 Interpretation: normal SpO2: 99 O2 Delivery: Room Air - Course Nursing assessment & vital signs reviewed: Yes Ordered Tests: Active Orders 24 hr Category Date Time Status IV Insertion STAT Care 03/06/24 10:51 Active CBC W DIFF Stat Lab 03/06/24 11:05 Completed CMP Stat Lab 03/06/24 11:05 Completed LIPASE Stat Lab 03/06/24 11:05 Completed TROPONIN Q4H Lab 03/06/24 11:05 Completed TROPONIN Q4H Lab 03/06/24 15:00 Ordered TROPONIN Q4H Lab 03/06/24 19:00 Ordered TSH, 3RD Generation Stat Lab 03/06/24 11:05 Completed UA W/RFX UR CULTURE Stat Lab 03/06/24 10:52 Ordered Medication Summary Discontinued Medications Generic Name Dose Route Start Last Admin Trade Name Collin PRN Reason Stop Dose Admin Sodium Chloride 1,000 mls @ 999 mls/hr 03/06/24 10:51 03/06/24 11:11 Sodium Chloride 0.9% 1000 Ml IV 03/06/24 11:51 999 mls/hr .Q1H1M STA Administration Sodium Chloride Confirm 03/06/24 11:10 Sodium Chloride 0.9% 1000 Ml Administered 03/06/24 11:11 Dose 1,000 mls @ ud .ROUTE .STK-MED ONE Ondansetron HCl 4 mg 03/06/24 10:51 03/06/24 11:11 Ondansetron Hcl 4 Mg/2 Ml Vial IV 03/06/24 10:52 4 mg STAT ONE Administration Ondansetron HCl Confirm 03/06/24 11:10 Ondansetron Hcl 4 Mg/2 Ml Vial Administered 03/06/24 11:11 Dose 4 mg .ROUTE .STK-MED ONE Lab/Rad Data: Laboratory Result Diagrams 03/06/24 11:05 03/06/24 11:05 Laboratory Results 03/06/24 03/06/24 03/06/24 Range/Units 11:05 11:05 11:05 WBC 5.9 (4.23-9.07) x10^3/uL RBC 4.66 (4.63-6.08) x10^6/uL Hgb 13.6 L (13.7-17.5) g/dL Hct 39.3 L (40.1-51.0) % MCV 84.3 (79.0-92.2) fL MCH 29.2 (25.7-32.2) pg MCHC 34.6 (32.3-36.5) g/dL RDW 11.8 (11.6-14.4) % Plt Count 194 (163-337) x10^3/uL MPV 9.5 (9.4-12.4) fL Gran % 56.9 (34.0-67.9) % Immature Gran % (Auto) 0.3 (0.001-0.429) % Nucleat RBC Rel Count 0.0 (0.00-0.2) % Eos # (Auto) 0.01 L (0.04-0.54) x10^3/uL Immature Gran # (Auto) 0.02 (0.001-0.031) x10^3u/L Absolute Lymphs (auto) 2.12 (1.32-3.57) x10^3/uL Absolute Monos (auto) 0.38 (0.30-0.82) x10^3/uL Absolute Nucleated RBC 0.00 (0.00-0.012) x10^3u/L Lymphocytes % 35.9 (21.8-53.1) % Monocytes % 6.4 (5.3-12.2) % Eosinophils % 0.2 L (0.8-7.0) % Basophils % 0.3 (0.2-1.2) % Absolute Granulocytes 3.35 (1.78-5.38) x10^3/uL Basophils # 0.02 (0.01-0.08) x10^3/uL Sodium 140 (135-145) mmol/L Potassium 3.6 (3.5-5.1) mmol/L Chloride 105 (98-107) mmol/L Carbon Dioxide 27 (22-30) mmol/L Anion Gap 11.2 (5-15) MEQ/L BUN 16 (9-20) mg/dL Creatinine 0.73 (0.66-1.25) mg/dL Estimated GFR 121.7 ML/MIN Glucose 97 (74-106) mg/dL Calcium 9.7 (8.4-10.2) mg/dL Total Bilirubin 0.40 (0.2-1.3) mg/dL AST 57 (17-59) U/L ALT 59 H (0-50) U/L Alkaline Phosphatase 45 (38-126) U/L Troponin I < 0.012 (0.000-0.033) ng/mL Serum Total Protein 7.0 (6.3-8.2) g/dL Albumin 4.3 (3.5-5.0) g/dL Lipase 28 (23-300) U/L TSH 3rd Generation 1.721 (0.470-4.680) mIU/L - Progress Progress: improved Counseled pt/family regarding: lab results, diagnosis, need for follow-up - Departure Departure Disposition: Home Clinical Impression: Nausea and vomiting Condition: Stable Critical Care Time: No Referrals: FELY MCKEON MD [Primary Care Provider] - Follow up/PCP as directed Additional Instructions: Discharge/Care Plan ROD SPARKS was seen on 03/06/24 in the Emergency Room. The patient was counseled regarding Diagnosis,Lab results, Imaging studies, need for follow up and when to return to the Emergency Room. Prescriptions given: Discharge Note I have spoken with the patient and/or caregivers. I have explained the patient's condition, diagnosis and treatment plan based on the information available to me at this time. I have answered the patient's and/or caregiver's questions and addressed any concerns. The patient and/or caregivers have as good understanding of the patient's diagnosis, condition and treatment plan as can be expected at this point. The vital signs have been stable. The patient's condition is stable and appropriate for discharge from the emergency department. The patient will pursue further outpatient evaluation with the primary care physician or other designated or consulting physician as outlined in the discharge instructions. The patient and/or caregivers are agreeable to this plan of care and follow-up instructions have been explained in detail. The patient and/or caregivers have received these instruction. The patient/and or caregivers are aware that any significant change in condition or worsening of symptoms should prompt an immediate return to this or the closest emergency department or call 911.
[2024-03-06] MEDS: Zofran 4 MG/2 ML VIAL IV ONE (11:11)
[2024-03-06] MEDS: Sodium Chloride 0.9% 1000 ML 1,000 ML IV STA (11:11)
[2024-03-06 11:24] LABS: Absolute Neutrophil Ct (ANC) 3.35 x10^3/uL (1.78-5.38); BASOPHIL % 0.3 % (0.2-1.2); Basophil (Absolute #) 0.02 x10^3/uL (0.01-0.08); Eosinophil % 0.2 % (0.8-7.0); Eosinophil (Absolute #) 0.01 x10^3/uL (0.04-0.54); Hematocrit 39.3 % (40.1-51.0); Hemoglobin 13.6 g/dL (13.7-17.5); IMMATURE GRAN # 0.02 x10^3u/L (0.001-0.031); IMMATURE GRAN % 0.3 % (0.001-0.429); Lymphocyte (Absolute #) 2.12 x10^3/uL (1.32-3.57); Lymphocytes % 35.9 % (21.8-53.1); Mean Cell Volume 84.3 fL (79.0-92.2); Mean Corpuscular Hemoglobin 29.2 pg (25.7-32.2); Mean Corpuscular Hgb Concent. 34.6 g/dL (32.3-36.5); Mean Platelet Volume 9.5 fL (9.4-12.4); Monocyte (Absolute #) 0.38 x10^3/uL (0.30-0.82); Monocytes % 6.4 % (5.3-12.2); Neutrophil % 56.9 % (34.0-67.9); Platelet Count 194 x10^3/uL (163-337); Red Blood Count 4.66 x10^6/uL (4.63-6.08); Red Cell Distribution Width 11.8 % (11.6-14.4); White Blood Count 5.9 x10^3/uL (4.23-9.07)
[2024-03-06 12:04] LABS: ALBUMIN 4.3 g/dL (3.5-5.0); ANION GAP 11.2 MEQ/L (5-15); BILIRUBIN,TOTAL 0.4 mg/dL (0.2-1.3); Calcium 9.7 mg/dL (8.4-10.2); Creatinine 1 0.73 mg/dL (0.66-1.25); EST GLOMERULAR FILTRATION RATE 121.7 ML/MIN; Potassium 3.6 mmol/L (3.5-5.1); TSH, 3RD Generation 1.721 mIU/L (0.470-4.680)
[2024-03-06 13:01] VITALS: BP 120/70; PULSE 45
== END 2024-03-06 13:01 | disposition home or self-care (01) ==
LOC: ED 10:26
DX: R11.2 Nausea with vomiting, unspecified (principal); Z79.891 Long term (current) use of opiate analgesic; Z72.0 Tobacco use
CPT/HCPCS: 36415; 80053; 83690; 84443; 84484; 85025; 96374; 99284; J2405